=== PATIENT | male | born 1945 | race Caucasian/White ===

== ENCOUNTER → 2017-12-09 | Outpatient (CLI) | payer OTHER | LOC: M LAB 10:28 | DX: I51.7 Cardiomegaly (principal) | CPT/HCPCS: 71046 ==

== ENCOUNTER 2018-06-03 14:56 | Day surgery (SDC) | payer MEDICARE ==
[2018-06-03] MEDS ORDERED: LR 1,000 ML IV (15:00)
[2018-06-03 15:36] LABS: BEDSIDE GLUCOSE 123 MG/DL (83-110)
[2018-06-03] MEDS ORDERED: fentaNYL 100 MCG/2 ML INJECTION (J3010) As Ordered (16:55)
[2018-06-03] MEDS ORDERED: LIDOCAINE 2% INJ 100 MG/5 ML SDV (FOR ANES.) As Ordered (16:55)
[2018-06-03] MEDS ORDERED: MIDAZOLAM INJ 2 MG/2 ML VIAL (J2250) As Ordered (16:55)
[2018-06-03] MEDS ORDERED: PROPOFOL 500 MG/50 ML VIAL As Ordered (16:55)
[2018-06-03] MEDS: CETACAINE SPRAY 5GM As Ordered (17:34)
[2018-06-03] MEDS: LIDOCAINE VISCOUS 2% SOLN 15ML UDC As Ordered (17:34)
== END 2018-06-03 18:50 | disposition home or self-care (01) ==
LOC: M SDC 14:56
DX: I34.1 Nonrheumatic mitral (valve) prolapse (principal); I34.0 Nonrheumatic mitral (valve) insufficiency; I50.1 Left ventricular failure, unspecified; I36.1 Nonrheumatic tricuspid (valve) insufficiency; I51.7 Cardiomegaly; I11.0 Hypertensive heart disease with heart failure; I48.91 Unspecified atrial fibrillation; E11.40 Type 2 diabetes mellitus with diabetic neuropathy, unspecified; I25.10 Atherosclerotic heart disease of native coronary artery without angina pectoris; I25.2 Old myocardial infarction; E78.00 Pure hypercholesterolemia, unspecified; M12.9 Arthropathy, unspecified; J44.9 Chronic obstructive pulmonary disease, unspecified; G47.9 Sleep disorder, unspecified; Z91.041 Radiographic dye allergy status; Z79.899 Other long term (current) drug therapy; Z79.84 Long term (current) use of oral hypoglycemic drugs; Z87.820 Personal history of traumatic brain injury; Z85.828 Personal history of other malignant neoplasm of skin
CPT/HCPCS: 93320

== ENCOUNTER → 2018-07-08 | Outpatient (CLI) | payer MEDICARE | LOC: M CARPUL 14:52 | DX: R06.00 Dyspnea, unspecified (principal) | CPT/HCPCS: 94010 ==

== ENCOUNTER 2018-12-30 15:33 | Emergency (ER) | payer MEDICARE ==
[~2018-12-30 15:33] MED LIST: ARIC1TAB2 PO; ASPI81TA85 PO; ATOR1TAB21 PO; CARV3.12 PO; CARV6.25 PO; CLOP75TA2 PO; FLOM0.4C39 PO; IPRA0.00 INH; IRON28TA PO; LASI40TA9 PO; LISI-1046 PO; METF500T13 PO; PANT40TA3 PO; PROT1TAB2 PO; SENN1TAB40 PO; TRAZ-160 PO
[2018-12-30 16:10] VITALS: BP 142/55
== END 2018-12-30 16:47 | disposition home or self-care (01) ==
LOC: M ED 15:33
DX: Z04.6 Encounter for general psychiatric examination, requested by authority (principal); J44.9 Chronic obstructive pulmonary disease, unspecified; E11.9 Type 2 diabetes mellitus without complications; I50.9 Heart failure, unspecified; I48.91 Unspecified atrial fibrillation; I25.10 Atherosclerotic heart disease of native coronary artery without angina pectoris; I34.1 Nonrheumatic mitral (valve) prolapse; I36.1 Nonrheumatic tricuspid (valve) insufficiency; Z79.899 Other long term (current) drug therapy; Z79.84 Long term (current) use of oral hypoglycemic drugs; Z79.82 Long term (current) use of aspirin; Z91.041 Radiographic dye allergy status

== ENCOUNTER → 2019-01-20 | Outpatient (CLI) | payer MEDICARE ==
--- NOTE | 2019-01-20 16:45 | REP ---
Bilateral inguinal ultrasound: The patient complains of a palpable lump in the right inguinal area with pain for 1 month increasing in size. In the right inguinal area there is a fluid collection measuring 3.5 x 1.5 x 2.12 cm. This is nonspecific and could represent hematoma, abscess or cyst. This is located anterior to the common femoral vein. Inferior to this fluid collection. There is an enlarged right inguinal node measuring 3.7 x 0.8 x 1.8 cm. There is no mass, cyst, fluid collection or lymph node in the left groin. Electronically Signed by To Lawrence MD 01/20/2019 04:36 P
== END ==
LOC: M RAD 13:45
PROVIDERS: ATTEND Surgery
DX: R59.1 Generalized enlarged lymph nodes (principal); R22.2 Localized swelling, mass and lump, trunk

== ENCOUNTER 2019-03-03 08:51 | Day surgery (SDC) | payer MEDICARE ==
[~2019-03-03] VITALS: Ht 160 cm; Wt 88.0 kg
[~2019-03-03 08:51] MED LIST changes: +NS 1,000 ML IV ONE; -TRAZ-160 PO; +TRAZ-252 PO; +WARF4TAB51 PO
[2019-03-03] MEDS ORDERED: PROPOFOL 200 MG/20 ML VIAL As Ordered ONE (11:27)
[2019-03-03] MEDS ORDERED: LIDOCAINE 2% INJ 100 MG/5 ML SDV (FOR ANES.) As Ordered ONE (11:27)
--- NOTE | 2019-03-03 11:41 | ROOR ---
Patient Name: Tan Shaver Procedure Date: 03/03/2019 11:13 AM Date of : 1945 Age: 73 Room: [facility] Gender: Male Note Status: Finalized Procedure: Colonoscopy Indications: High risk colon cancer surveillance: Personal history of colonic polyps Providers: DO Demetrio Garcia MD: Bogdan Dominguez Requesting Provider: Medicines: Propofol per Anesthesia Complications: No immediate complications. Procedure: Pre-Anesthesia Assessment: - Prior to the procedure, a History and Physical was performed, and patient medications and allergies were reviewed. The patient is competent. The risks and benefits of the procedure and the sedation options and risks were discussed with the patient. All questions were answered and informed consent was obtained. Patient identification and proposed procedure were verified by the physician, the nurse, the anesthesiologist and the lead technician in the endoscopy suite. Mental Status Examination: alert and oriented. Airway Examination: normal oropharyngeal airway and neck mobility. Respiratory Examination: clear to auscultation. CV Examination: normal. Prophylactic Antibiotics: The patient does not require prophylactic antibiotics. Prior Anticoagulants: The patient has taken no previous anticoagulant or antiplatelet agents. ASA Grade Assessment: II - A patient with mild systemic disease. After reviewing the risks and benefits, the patient was deemed in satisfactory condition to undergo the procedure. The anesthesia plan was to use monitored anesthesia care (MAC). Immediately prior to administration of medications, the patient was re-assessed for adequacy to receive sedatives. The heart rate, respiratory rate, oxygen saturations, blood pressure, adequacy of pulmonary ventilation, and response to care were monitored throughout the procedure. The physical status of the patient was re-assessed after the procedure. The Colonoscope was introduced through the anus and advanced to the cecum, identified by appendiceal orifice and ileocecal valve. The colonoscopy was performed without difficulty. The patient tolerated the procedure well. Findings: Hemorrhoids were found on perianal exam. Internal hemorrhoids were found during retroflexion. The hemorrhoids were Grade III (internal hemorrhoids that prolapse but require manual reduction). Multiple small-mouthed diverticula were found in the sigmoid colon. A 7 mm polyp was found in the transverse colon. The polyp was hyperplastic. The polyp was removed with a hot snare. Resection and retrieval were complete. Estimated blood loss was minimal. The exam was otherwise without abnormality on direct and retroflexion views. Impression: - Hemorrhoids found on perianal exam. - Internal hemorrhoids. - Diverticulosis in the sigmoid colon. - One 7 mm polyp in the transverse colon, removed with a hot snare. Resected and retrieved. - The examination was otherwise normal on direct and retroflexion views. Recommendation: - Patient has a contact number available for emergencies. The signs and symptoms of potential delayed complications were discussed with the patient. Return to normal activities tomorrow. Written discharge instructions were provided to the patient. - Resume Coumadin (warfarin) at prior dose today. Refer to referring physician for further adjustment of therapy. To Braxton DO 03/03/2019 11:41:05 AM Electronically signed by To Braxton DO Number of Addenda: 0 Note Initiated On: 03/03/2019 11:13 AM Estimated Blood Loss: Estimated blood loss was minimal.
[2019-03-03 12:15] VITALS: BP 115/76
== END 2019-03-03 12:04 | disposition home or self-care (01) ==
LOC: M OPP 08:51
PROVIDERS: ATTEND Surgery
DX: D12.3 Benign neoplasm of transverse colon (principal); K64.2 Third degree hemorrhoids; K57.30 Diverticulosis of large intestine without perforation or abscess without bleeding; Z86.010 Personal history of colon polyps

== ENCOUNTER 2019-06-08 11:29 | Emergency (ER) | payer MEDICARE ==
[~2019-06-08 11:29] MED LIST changes: -NS 1,000 ML IV ONE
[2019-06-08] MEDS ORDERED: TAMS1CAP17 PO (11:49)
[2019-06-08] MEDS ORDERED: FURO40TA2 PO (11:49)
[2019-06-08] MEDS ORDERED: LISI-1046 PO (11:49)
[2019-06-08] MEDS ORDERED: METO1TAB87 (11:49)
[2019-06-08] MEDS ORDERED: METF-791 PO (11:49)
[2019-06-08] MEDS ORDERED: DONE10TA90 PO (11:49)
[2019-06-08] MEDS ORDERED: ATOR1TAB21 PO (11:49)
--- NOTE | 2019-06-08 12:50 | REP ---
Clinical: Trauma. Comparison: None . Findings: Age-related atrophy and microvascular ischemic changes are appreciated. The ventricles and sulci are symmetric. Garcia-white differentiation is maintained. There is no evidence for acute intracranial hemorrhage, mass/mass effect, pathology or infarction. No extra-axial fluid collection. Calvarium is intact. Paranasal sinuses and mastoid air cells are clear. Impression: Age related atrophy and microvascular ischemic changes. No acute intracranial hemorrhage, infarction, or mass/mass effect. Electronically Signed by Andriy Muñoz MD 06/08/2019 12:42 P
--- NOTE | 2019-06-08 13:39 | REP ---
CT CERVICAL SPINE: CT cervical spine performed in the axial plane. Sagittal and coronal reconstruction images are performed. There is no compression fracture. There is slight reversal of the normal cervical lordosis. There is no prevertebral soft tissue swelling. There is mild spurring of C2 and C3 with moderate spurring of the C4-C7. There is mild narrowing of C3-4. There is moderate narrowing with subchondral sclerosis at C4-5, C5-6, and C6-7. Benign subchondral air cyst is seen posteriorly in the C4 vertebral body. Disc bulging and spurring causes moderate spinal stenosis at C4-5, C5-6, and C6-7 with bilateral foraminal narrowing at these levels as well. IMPRESSION: Degenerative changes. No evidence of acute fracture or dislocation. Electronically Signed by To Garcia MD 06/08/2019 04:51 P
[2019-06-08] MEDS ORDERED: PERCOCET 5MG/325MG TAB PO ONE (14:00)
[2019-06-08 14:38] LABS: HEMOGLOBIN 13.6 g/dl (13.5-17.5); MEAN CORPUSCULAR HEMOGLOBIN 28.7 pg (27.0-33.0); MEAN CORPUSCULAR HGB CONC 32.4 g/dl (32.0-36.5); MEAN CORPUSCULAR VOLUME 88.6 fl (80.0-96.0); PLATELET COUNT, AUTOMATED 208 10^3/uL (150-450); RED BLOOD COUNT 4.74 10^6/uL (4.30-6.10); WHITE BLOOD COUNT 12.4 10^3/uL (4.0-10.0)
[2019-06-08 14:50] VITALS: BP 138/65
[2019-06-08] MEDS ORDERED: NORC1TAB7 PO (14:58)
[2019-06-08 14:59] LABS: BLOOD UREA NITROGEN 21 MG/DL (7-18); CALCIUM LEVEL 9.2 MG/DL (8.8-10.2); CARBON DIOXIDE LEVEL 30 MEQ/L (21-32); CHLORIDE LEVEL 105 MEQ/L (98-107); CK-MB VALUE MASS < 1.0 NG/ML (<3.6); CPK CREATINE PHOSPHOKINASE 226 U/L (39-308); CREATININE FOR GFR 1.04 MG/DL (0.70-1.30); GLOMERULAR FILTRATION RATE > 60.0 (>42); GLUCOSE, FASTING 126 MG/DL (70-100); MAGNESIUM LEVEL 2.2 MG/DL (1.8-2.4); MB/CK RELATIVE INDEX 0.44 (< OR =4); POTASSIUM SERUM 4.2 MEQ/L (3.5-5.1); SODIUM LEVEL 142 MEQ/L (136-145); TROPONIN I < 0.02 NG/ML (< 0.10)
[2019-06-08 15:40] LABS: INR 2.05; PROTHROMBIN TIME 22.9 SECONDS (11.8-14.0)
[2019-06-08 15:41] LABS: PARTIAL THROMBOPLASTIN TIME 32.1 SECONDS (25.0-38.4)
== END 2019-06-08 15:27 | disposition left against medical advice (07) ==
LOC: M ED 11:29 → EDBD 11:29 → M ED 15:27
DX: R55 Syncope and collapse (principal); M79.602 Pain in left arm; I48.91 Unspecified atrial fibrillation; I25.10 Atherosclerotic heart disease of native coronary artery without angina pectoris; J44.9 Chronic obstructive pulmonary disease, unspecified; Z86.73 Personal history of transient ischemic attack (TIA), and cerebral infarction without residual deficits; Z87.891 Personal history of nicotine dependence; Z53.21 Procedure and treatment not carried out due to patient leaving prior to being seen by health care provider; M25.78 Osteophyte, vertebrae; M48.02 Spinal stenosis, cervical region; Z79.82 Long term (current) use of aspirin; Z79.84 Long term (current) use of oral hypoglycemic drugs; Z79.01 Long term (current) use of anticoagulants; Z79.899 Other long term (current) drug therapy; Z91.041 Radiographic dye allergy status

== ENCOUNTER 2019-06-12 15:00 | Inpatient (IN) | payer MEDICARE ==
[~2019-06-12] VITALS: Ht 160 cm; Wt 80.0 kg
[~2019-06-12 15:00] MED LIST changes: +DONE10TA90 PO; +FURO40TA2 PO; +METF-791 PO; +METO1TAB87; +NORC1TAB7 PO; +TAMS1CAP17 PO
[2019-06-12] MEDS ORDERED: ASPI81CH33 PO (15:20)
[2019-06-12 15:43] LABS: HEMATOCRIT 43.9 % (42.0-52.0); HEMOGLOBIN 14.1 g/dl (13.5-17.5); MEAN CORPUSCULAR HEMOGLOBIN 28.5 pg (27.0-33.0); MEAN CORPUSCULAR HGB CONC 32.1 g/dl (32.0-36.5); MEAN CORPUSCULAR VOLUME 88.7 fl (80.0-96.0); PLATELET COUNT, AUTOMATED 213 10^3/uL (150-450); RED BLOOD COUNT 4.95 10^6/uL (4.30-6.10); WHITE BLOOD COUNT 8.5 10^3/uL (4.0-10.0)
[2019-06-12 15:59] LABS: INR 3.68; PARTIAL THROMBOPLASTIN TIME 38.3 SECONDS (25.0-38.4); PROTHROMBIN TIME 36.6 SECONDS (11.8-14.0)
--- NOTE | 2019-06-12 16:08 | REP ---
Clinical: Left-sided deficits. Comparison: 06/08/2019 . Findings: Age-related atrophy and microvascular ischemic changes are appreciated. The ventricles and sulci are symmetric. Garcia-white differentiation is maintained. There is no evidence for acute intracranial hemorrhage, mass/mass effect, pathology or infarction. No extra-axial fluid collection. Calvarium is intact. Paranasal sinuses and mastoid air cells are clear. Impression: Age related atrophy and microvascular ischemic changes. No acute intracranial hemorrhage, infarction, or mass/mass effect. Electronically Signed by Andriy Muñoz MD 06/12/2019 04:00 P
[2019-06-12 16:13] LABS: ALBUMIN 3.3 GM/DL (3.2-5.2); ALT/SGPT 16 U/L (12-78); BILIRUBIN,TOTAL 0.8 MG/DL (0.2-1.0); BLOOD UREA NITROGEN 16 MG/DL (7-18); CARBON DIOXIDE LEVEL 28 MEQ/L (21-32); CHLORIDE LEVEL 107 MEQ/L (98-107); CREATININE FOR GFR 0.88 MG/DL (0.70-1.30); GLOMERULAR FILTRATION RATE > 60.0 (>42); GLUCOSE, FASTING 128 MG/DL (70-100); POTASSIUM SERUM 4.2 MEQ/L (3.5-5.1); SODIUM LEVEL 141 MEQ/L (136-145)
[2019-06-12 16:30] LABS: CK-MB VALUE MASS < 1.0 NG/ML (<3.6); CPK CREATINE PHOSPHOKINASE 63 U/L (39-308); MB/CK RELATIVE INDEX 1.59 (< OR =4); TROPONIN I < 0.02 NG/ML (< 0.10)
[2019-06-12] MEDS ORDERED: PATIENT COMMENT (18:20)
[2019-06-12] MEDS ORDERED: CHOL100029 PO (18:20)
[2019-06-12] MEDS ORDERED: OMEG10002 PO (18:20)
[2019-06-12] MEDS ORDERED: ECOT81TA5 PO (18:20)
--- NOTE | 2019-06-12 19:38 | ECGEPIP ---
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
[2019-06-12] MEDS ORDERED: DEXTROSE 50% 50 ML SYRINGE IV PRN (20:45)
[2019-06-12] MEDS ORDERED: ACETAMINOPHEN TAB 650MG DOSE (2X325MG) PO PRN (20:45)
[2019-06-12] MEDS ORDERED: MOM 30ML SUSPENSION UDC PO PRN (20:45)
[2019-06-12] MEDS ORDERED: MAALOX 30 ML SUSP *UDC PO PRN (20:45)
[2019-06-12] MEDS ORDERED: GLUCAGON FOR INJ 1 MG VIAL (J1610) SC PRN (20:45)
[2019-06-12] MEDS ORDERED: GLUCOSE 4 GM CHEW TABLET PO PRN (20:45)
[2019-06-12] MEDS: CARVedilol 3.125 MG TAB PO SCH (22:58)
[2019-06-12 23:30] VITALS: BP 130/78
--- NOTE | 2019-06-13 02:25 | HPEPDOC ---
General Date of Admission Jun 12, 2019 at 20:39 Date of Service: Jun 12, 2019 Chief Complaint The patient is a 73-year-old male admitted with a reason for visit of Left Arm Weakness. History of Present Illness 73m with hx of afib on coumadin, chf, cva, copd, cad, pud, ild, dm, who presented 06/08 for syncope and then left AMA. Pt reports last friday he fell after getting very dizzy. He left AMA to care for his dog. He reports pain and weakness in his left arm and hand. Since leaving ama on friday he has also been unable to stand or walk. He has been scooting around the floor for the past 4 days. He has trouble explaining why he cannot stand. He reports this feels different than when he had a stroke. a full ROS was performed and negative except as above Home Medications Scheduled Aspirin (Ecotrin) 81 Mg Tablet.dr, 81 MG PO DAILY, (Reported) Atorvastatin Calcium (Atorvastatin Calcium) 20 Mg Tablet, 20 MG PO DAILY, (Reported) Carvedilol (Carvedilol) 6.25 Mg Tab, 3.125 MG PO BID, (Reported) Donepezil HCl (Donepezil HCl) 10 Mg Tablet, 10 MG PO DAILY, (Reported) Furosemide (Furosemide) 40 Mg Tablet, 40 MG PO DAILY, (Reported) Lisinopril (Lisinopril) 2.5 Mg Tablet, 2.5 MG PO DAILY, (Reported) Metformin HCl (Metformin HCl ER) 500 Mg Tab.er.24h, 500 MG PO BID, (Reported) [place]-3/Dha/Epa/Fish Oil (Fish Oil 1,000 mg Softgel) 1 Each Capsule, 1 CAP PO DAILY, (Reported) Tamsulosin Hcl (Tamsulosin HCl) 0.4 Mg Capsule, 0.4 MG PO DAILY, (Reported) Vitamin D (Vitamin D3) 1,000 Unit Tablet, 1,000 UNITS PO DAILY, (Reported) Warfarin Sodium (Warfarin Sodium) 2 Mg Tablet, 2 MG PO QPM, (Reported) Miscellaneous Medications [Patient Comment] , (Reported) PATIENT TOOK MEDS THIS MORNING BUT IS UNABLE TO VERIFY WHICH ONES. Allergies Coded Allergies: Contrast Media (Verified Allergy, Severe, 06/12/19) Family History Significant Family History: Noncontributory Social History * Smoker: former Smoker Alcohol: Denies Drugs: denies A-FIB/CHADSVASC A-FIB History Current/History of A-Fib/PAF?: Yes Current PO Anticoag Therapy: Yes Physical Examination General Exam: Positive: Alert, Cooperative, No Acute Distress Eye Exam: Positive: PERRLA, Conjunctiva & lids normal, EOMI; Negative: Sclera icteric ENT Exam: Positive: Atraumatic, Mucous membr. moist/pink, Pharynx Normal Neck Exam: Positive: Supple; Negative: JVD, thyromegaly Chest Exam: Positive: Clear to auscultation, Normal air movement Heart Exam: Positive: Rate Normal, Normal S1, Normal S2; Negative: Murmurs, Rubs Abdomen Exam: Positive: Normal bowel sounds, Soft; Negative: Tenderness, Hepatospenomegaly Extremity Exam: Positive: Normal pulses; Negative: Clubbing, Cyanosis, Edema Skin Exam: Positive: Nl turgor and temperature; Negative: Breakdown, Lesion Neuro Exam: Positive: Normal Speech, Other (no weakness in lower extremities noted, dependency counselor strength weak bilaterally, left hand weakness worse on ulnar side, cerebellar testing wnl) Vital Signs Vital Signs Date Time Temp Pulse Resp B/P (MAP) Pulse Ox O2 Delivery O2 Flow Rate FiO2 06/12/19 23:30 98.9 87 16 130/78 (95) 98 06/12/19 22:55 Room Air Laboratory Data Labs 24H Laboratory Tests 2 06/12/19 15:36: Nucleated Red Blood Cells % (auto) 0.0, Prothrombin Time 36.6H, Prothromb Time International Ratio 3.68, Activated Partial Thromboplast Time 38.3, Anion Gap 6L, Glomerular Filtration Rate > 60.0, Blood Urea Nitrogen 16, Creatinine 0.88, Sodium Level 141, Potassium Level 4.2, Chloride Level 107, Carbon Dioxide Level 28, Calcium Level 9.0, Aspartate Amino Transf (AST/SGOT) 16, Alanine Aminotransferase (ALT/SGPT) 16, Total Creatine Kinase 63, Alkaline Phosphatase 79, Total Bilirubin 0.8, Total Protein 7.0, Albumin 3.3, Creatine Kinase MB < 1.0, Creatine Kinase MB Relative Index 1.59, Troponin I < 0.02, Albumin/Globulin Ratio 0.89L 06/12/19 22:18: Bedside Glucose (Misc Panel) 117H 06/12/19 23:24: Bedside Glucose (Misc Panel) 117H CBC/BMP Laboratory Tests 06/12/19 15:36 Red Blood Count 4.95, Mean Corpuscular Volume 88.7, Mean Corpuscular Hemoglobin 28.5, Mean Corpuscular Hemoglobin Concent 32.1, Red Cell Distribution Width 14.9 H, Calcium Level 9.0, Aspartate Amino Transf (AST/SGOT) 16, Alanine Aminotransfe rase (ALT/SGPT) 16, Total Creatine Kinase 63, Alkaline Phosphatase 79, Total Bilirubin 0.8, Total Protein 7.0, Albumin 3.3 Assessment/Plan 73m p/w inability to walk, left hand weakness ct with no evidence of infarct or bleed clinically the hand weakness appears to either be radicular or peripheral nerve no clear explanation for the difficulty standing mri brain and c-spine ordered by ED but delayed due to penile implant neuro consult in am PT/OT afib on coumadin inr high repeat tomorrow rate controlled cad/chf continue coreg, lisinopril, asa, lipitor dm diabetic diet fingersticks sliding scale Plan / VTE VTE Prophylaxis Ordered?: Yes JESUS GRACIA MD Jun 13, 2019 02:25
[2019-06-13 06:00] VITALS: BP 128/82
[2019-06-13] MEDS: HumaLOG INSULIN (NovoLOG) PER UNIT SC SCH ×3 (08:50→17:44)
[2019-06-13] MEDS: FUROSEMIDE 40 MG TAB PO SCH (08:51)
[2019-06-13] MEDS: CARVedilol 3.125 MG TAB PO SCH ×2 (08:51→20:40)
[2019-06-13] MEDS: TAMSULOSIN 0.4 MG CAP PO SCH (08:51)
[2019-06-13] MEDS: DONEPEZIL 5 MG TAB PO SCH (08:51)
[2019-06-13] MEDS: OMEGA-3 1000MG CAPSULE PO SCH (08:51)
[2019-06-13] MEDS: VITAMIN D 1,000 INTERNATIONAL UNITS TABLET PO SCH (08:52)
[2019-06-13] MEDS: LISINOPRIL *2.5 MG* TAB PO SCH (08:52)
[2019-06-13] MEDS: ASPIRIN 81 MG ENTERIC TAB PO SCH (08:52)
[2019-06-13] MEDS: ATORVASTATIN 20 MG TAB PO SCH (08:52)
[2019-06-13 08:53] LABS: BASO # 0.1 10^3/uL (0.0-0.2); BASO % 0.7 % (0.0-1.0); EOS # 0.2 10^3/uL (0.0-0.5); EOS % 1.7 % (0.0-3.0); HEMATOCRIT 42.7 % (42.0-52.0); HEMOGLOBIN 13.7 g/dl (13.5-17.5); LYMPH # 1.6 10^3/uL (1.5-5.0); LYMPH % 18.1 % (24.0-44.0); MEAN CORPUSCULAR HEMOGLOBIN 28.2 pg (27.0-33.0); MEAN CORPUSCULAR HGB CONC 32.1 g/dl (32.0-36.5); MONO # 0.6 10^3/uL (0.0-0.8); MONO % 6.9 % (0.0-5.0); NEUTROPHILS # 6.5 10^3/uL (1.5-8.5); NEUTROPHILS % 72.3 % (36.0-66.0); PLATELET COUNT, AUTOMATED 210 10^3/uL (150-450); RED BLOOD COUNT 4.85 10^6/uL (4.30-6.10)
[2019-06-13] MEDS ORDERED: ENOXAPARIN 40 MG/0.4 ML SYRINGE (J1650) SC SCH (09:00)
[2019-06-13 09:04] LABS: INR 3.56; PARTIAL THROMBOPLASTIN TIME 43.6 SECONDS (25.0-38.4); PROTHROMBIN TIME 35.6 SECONDS (11.8-14.0)
[2019-06-13 09:11] LABS: BLOOD UREA NITROGEN 16 MG/DL (7-18); CALCIUM LEVEL 8.7 MG/DL (8.8-10.2); CARBON DIOXIDE LEVEL 25 MEQ/L (21-32); CHLORIDE LEVEL 107 MEQ/L (98-107); CREATININE FOR GFR 0.84 MG/DL (0.70-1.30); GLOMERULAR FILTRATION RATE > 60.0 (>42); GLUCOSE, FASTING 137 MG/DL (70-100); POTASSIUM SERUM 4.2 MEQ/L (3.5-5.1); SODIUM LEVEL 140 MEQ/L (136-145)
[2019-06-13 13:48] VITALS: BP 92/50
[2019-06-13 13:55] VITALS: BP 112/62
--- NOTE | 2019-06-13 16:33 | IPNPDOC ---
Text Note Date of Service The patient was seen on 06/13/19. NOTE SUBJECTIVE: Mr. Shaver 73-year-old male admitted with weakness and probable left hemiparesis. He is unable to use his left hand or left upper extremity and reports being unable to stand or ambulate. The patient is left-hand dominant. Objective: HENT: Neck is otherwise supple with no adenopathy or thyromegaly, oral mucosa is moist, good dentition Cardiovascular: Regular rate and rhythm with a normal S1 and S2 and I do not appreciate a bruit. Respiratory: Clear to auscultation, no wheezing or cough. Abdomen: Soft, mild central obesity, otherwise benign to exam. Extremities: Patient has notable edema to his left upper extremity. Neuro: Patient has remarkable weakness to his left upper extremity, he cannot make use of his hand, he cannot bear weight or ambulate without significant assistance. Cranial nerves II through XII are otherwise intact to function, and he does not demonstrate right-sided deficits. ASSESSMENT/PLAN: 1. Concern for CVA. Patient persists with left-sided weakness. He is also unable to ambulate. CT scan is negative for infarct or bleed. He is unable to have further evaluation by MRI due to presence of penile implant. Patient is unable to have evaluation by CT angiogram due to contrast media allergy. We will contact neurology marlon conner. He otherwise remains on aspirin and statin in the form of Lipitor. 2. Atrial fibrillation. Patient is on anticoagulation with Coumadin. However, he is supratherapeutic with an INR of 3.56 and is being held. He is also receiving Lovenox. Ubb-duulaeu-knqqngpsz diabetes mellitus. Patient remains on a consistent carbohydrate diet and we are using hospital sliding scale for glycemic control. 4. Congestive heart failure. Patient continues on a regimen inclusive of Coreg, lisinopril, aspirin and Lipitor. He does not appear to be in acute fluid overload. VS,Fishbone, I+O VS, Fishbone, I+O Laboratory Tests 06/13/19 08:24 Red Blood Count 4.85, Mean Corpuscular Volume 88.0, Mean Corpuscular Hemoglobin 28.2, Mean Corpuscular Hemoglobin Concent 32.1, Red Cell Distribution Width 14.9 H, Neutrophils (%) (Auto) 72.3 H, Lymphocytes (%) (Auto) 18.1 L, Monocytes (%) (Auto) 6.9 H, Eosinophils (%) (Auto) 1.7, Basophils (%) (Auto) 0.7, Neutrophils # (Auto) 6.5, Lymphocytes # (Auto) 1.6, Monocytes # (Auto) 0.6, Eosinophils # (Auto) 0.2, Basophils # (Auto) 0.1, Calcium Level 8.7 L Vital Signs Date Time Temp Pulse Resp B/P (MAP) Pulse Ox O2 Delivery O2 Flow Rate FiO2 06/13/19 14:00 99.1 87 16 96 06/13/19 13:55 112/62 (79) 06/12/19 22:55 Room Air I&O- Last 24 Hours up to 6 AM 06/13/19 06:00 Intake Total 240 ml Output Total 325 ml Balance -85 ml POLI REYES MD Jun 13, 2019 16:33
[2019-06-14 06:00] VITALS: BP 122/76
[2019-06-14 06:11] LABS: INR 3.46; PROTHROMBIN TIME 34.8 SECONDS (11.8-14.0)
[2019-06-14] MEDS: TAMSULOSIN 0.4 MG CAP PO SCH (08:05)
[2019-06-14] MEDS: HumaLOG INSULIN (NovoLOG) PER UNIT SC SCH ×3 (08:05→17:02)
[2019-06-14] MEDS: OMEGA-3 1000MG CAPSULE PO SCH (08:05)
[2019-06-14] MEDS: VITAMIN D 1,000 INTERNATIONAL UNITS TABLET PO SCH (08:06)
[2019-06-14] MEDS: ATORVASTATIN 20 MG TAB PO SCH (08:06)
[2019-06-14] MEDS: ASPIRIN 81 MG ENTERIC TAB PO SCH (08:06)
[2019-06-14] MEDS: LISINOPRIL *2.5 MG* TAB PO SCH (08:06)
[2019-06-14] MEDS: FUROSEMIDE 40 MG TAB PO SCH (08:06)
[2019-06-14] MEDS: CARVedilol 3.125 MG TAB PO SCH ×2 (08:06→21:05)
[2019-06-14] MEDS: DONEPEZIL 5 MG TAB PO SCH (08:07)
[2019-06-14 14:00] VITALS: BP 116/63
[2019-06-14] MEDS ORDERED: ATOR1TAB21 PO (16:34)
--- NOTE | 2019-06-14 16:45 | IPNPDOC ---
Text Note Date of Service The patient was seen on 06/14/19. NOTE SUBJECTIVE: Mr. Shaver says he's had some significant clinical improvement. He demonstrates moving his left arm and can pull himself to a standing position. Concern had been raised for acute stroke. Head CT did not show signs of infarction or bleed. Patient was unable to have further imaging study by MRI or CT angiogram. OBJECTIVE: HENT: Neck is supple, no adenopathy, patient had full control of oral secretions, no thyromegaly Cardiovascular: Regular rate and rhythm with no murmur or bruit. Respiratory: Clear to auscultation with no rhonchi, rales, wheezes or cough. Abdomen: Soft, nontender, nondistended. Extremities: Patient still has remarkable edema to his left hand, no edema to his feet. Neuro: Cranial nerves II through XII are intact to function. He has improving mobility and strength to his left arm and is now able to bear weight. He is not fully independently ambulatory. ASSESSMENT/PLAN: 1. Concern for CVA. Patient's left-sided weakness has improved significantly. He is now able to bear weight, but still not fully ambulatory. CT scan is negative for infarct or bleed. He is unable to have further evaluation by MRI due to presence of penile implant. Patient is unable to have evaluation by CT angiogram due to contrast media allergy. He otherwise remains on aspirin and statin in the form of Lipitor. Per evaluation by PT and OT services patient may be a good candidate for acute rehabilitation. 2. Atrial fibrillation. Patient is on anticoagulation with Coumadin. However, he is supratherapeutic with an INR of 3.56 and it is being held. He is also receiving Lovenox. Nwj-nyqdzrd-qtzuxsaps diabetes mellitus. Patient remains on a consistent carbohydrate diet and we are using hospital sliding scale for glycemic control. 4. Congestive heart failure. Patient continues on a regimen inclusive of Coreg, lisinopril, aspirin and Lipitor. He does not appear to be in acute fluid overload. VS,Fishbone, I+O VS, Fishbone, I+O Vital Signs Date Time Temp Pulse Resp B/P (MAP) Pulse Ox O2 Delivery O2 Flow Rate FiO2 06/14/19 14:00 98.9 94 18 116/63 (80) 95 06/12/19 22:55 Room Air I&O- Last 24 Hours up to 6 AM 06/14/19 06:00 Intake Total 1560 ml Output Total 1140 ml Balance 420 ml POLI REYES MD Jun 14, 2019 16:45
[2019-06-14] MEDS: metFORMIN XR 500MG TAB *GLUCOPHAGE XR PO SCH (21:05)
[2019-06-14 22:00] VITALS: BP 113/74
[2019-06-15 06:00] VITALS: BP 115/70
[2019-06-15] MEDS: ASPIRIN 81 MG ENTERIC TAB PO SCH (08:08)
[2019-06-15] MEDS: FUROSEMIDE 40 MG TAB PO SCH (08:08)
[2019-06-15] MEDS: VITAMIN D 1,000 INTERNATIONAL UNITS TABLET PO SCH (08:08)
[2019-06-15 08:09] VITALS: BP 117/84
[2019-06-15] MEDS: CARVedilol 3.125 MG TAB PO SCH (08:09)
[2019-06-15] MEDS: OMEGA-3 1000MG CAPSULE PO SCH (08:09)
[2019-06-15] MEDS: ATORVASTATIN 20 MG TAB PO SCH (08:09)
[2019-06-15] MEDS: LISINOPRIL *2.5 MG* TAB PO SCH (08:09)
[2019-06-15] MEDS: metFORMIN XR 500MG TAB *GLUCOPHAGE XR PO SCH (08:09)
[2019-06-15] MEDS: TAMSULOSIN 0.4 MG CAP PO SCH (08:09)
[2019-06-15] MEDS: DONEPEZIL 5 MG TAB PO SCH (08:09)
[2019-06-15] MEDS: HumaLOG INSULIN (NovoLOG) PER UNIT SC SCH (08:10)
[2019-06-15 09:54] LABS: INR 2.23; PROTHROMBIN TIME 24.5 SECONDS (11.8-14.0)
--- NOTE | 2019-07-07 12:00 | DS.PDOC ---
Discharge Summary General Date of Admission Jun 12, 2019 at 20:39 Date of Discharge June 15, 2019 Discharge Summary PROCEDURES PERFORMED DURING STAY: [None]. ADMITTING DIAGNOSES: 1. [Suspected CVA]. DISCHARGE DIAGNOSES: 1. [Acute CVA, chronic atrial fibrillation, chronic systolic congestive heart failure, CAD, NIDDM, COPD, interstitial lung disease]. COMPLICATIONS/CHIEF COMPLAINT: Left Arm Weakness. HISTORY OF PRESENT ILLNESS/HOSPITAL COURSE: [73 year old male with history of chronic afib developed Left hemiparesis at home. Returned to ER after leaving hospital AMA. Was found to be mildly supratherapeutic on his Coumadin. Head CT did not show infarct or bleed. Patient was unable to undergo MRI due to presence of penile implant. He was unable to have evaluation by angiogram because of allergy to contrast media.Patient was otherwise felt to have had CVA. After evaluation by PT/OT services it was felt that patient would benefit from acute rehab.]. DISCHARGE MEDICATIONS: Please see below. ALLERGIES: Please see below. PHYSICAL EXAMINATION ON DISCHARGE: HENT: Neck is supple, no adenopathy, patient had full control of oral secretions, no thyromegaly Cardiovascular: Regular rate and rhythm with no murmur or bruit. Respiratory: Clear to auscultation with no rhonchi, rales, wheezes or cough. Abdomen: Soft, nontender, nondistended. Extremities: Patient still has remarkable edema to his left hand, no edema to his feet. Neuro: Cranial nerves II through XII are intact to function. He has improving mobility and strength to his left arm and is now able to bear weight. He is not fully independently ambulatory. LABORATORY DATA: Please see below. IMAGING: Head CT [Age related atrophy and microvascular ischemic changes. No acute intracranial hemorrhage, infarction, or mass/mass effect. Electronically Signed by Andriy Muñoz MD 06/12/2019 04:00 P] PROGNOSIS: ACTIVITY: [As tolerated, with assistance and supervision]. DIET: [Consistent Carbohydrate] DISCHARGE PLAN: [Patient is to be discharged to the acute rehab unit for PT and OT. He is motivated to recover. His other medical conditions otherwise remained stable. He remains on chronic anticiagulation with Coumadin. He is already on a statin and aspirin. He will follow up with his PCP upon discharge from ARU.] DISPOSITION: 62 D/T Rehab Facility. DISCHARGE CONDITION: [Stable]. TIME SPENT ON DISCHARGE: Greater than [40] minutes. Discharge Medications Scheduled Aspirin (Ecotrin) 81 Mg Tablet.dr, 81 MG PO DAILY Atorvastatin Calcium (Atorvastatin Calcium) 20 Mg Tablet, 40 MG PO DAILY Carvedilol (Carvedilol) 6.25 Mg Tab, 3.125 MG PO BID Donepezil HCl (Donepezil HCl) 10 Mg Tablet, 10 MG PO DAILY Fluoxetine Hcl (Fluoxetine HCl) 20 Mg Capsule, 20 MG PO QHS Furosemide (Furosemide) 40 Mg Tablet, 40 MG PO DAILY Lisinopril (Lisinopril) 2.5 Mg Tablet, 2.5 MG PO DAILY Metformin HCl (Metformin HCl ER) 500 Mg Tab.er.24h, 500 MG PO BID [place]-3/Dha/Epa/Fish Oil (Fish Oil 1,000 mg Softgel) 1 Each Capsule, 1 CAP PO DAILY, (Reported) Tamsulosin Hcl (Tamsulosin HCl) 0.4 Mg Capsule, 0.4 MG PO DAILY Vitamin D (Vitamin D3) 1,000 Unit Tablet, 1,000 UNITS PO DAILY, (Reported) Warfarin Sodium (Warfarin Sodium) 2 Mg Tablet, 2 MG PO q48h at 5pm Take 2 mg every other day and have your INR level checked at your next doctor's visit Allergies Coded Allergies: Contrast Media (Verified Allergy, Severe, 06/12/19) POLI REYES MD Jul 07, 2019 12:00
== END 2019-06-15 10:58 | DRG 65 ==
LOC: M ED 15:00 → M ED INP 20:39 → M MSPAV 23:07
PROVIDERS: ADMIT Hospitalist; ATTEND Internal Medicine
DX: I63.9 Cerebral infarction, unspecified (principal); I50.22 Chronic systolic (congestive) heart failure; I48.2 Chronic atrial fibrillation; Z79.01 Long term (current) use of anticoagulants; J44.9 Chronic obstructive pulmonary disease, unspecified; E11.9 Type 2 diabetes mellitus without complications; Z79.82 Long term (current) use of aspirin; Z79.899 Other long term (current) drug therapy; Z91.041 Radiographic dye allergy status; Z87.891 Personal history of nicotine dependence; I25.10 Atherosclerotic heart disease of native coronary artery without angina pectoris

== ENCOUNTER 2019-06-15 10:25 | Inpatient (IN) | payer MEDICARE ==
[~2019-06-15] VITALS: Ht 160 cm; Wt 97.1 kg
[2019-06-15] MEDS: DOCUSATE SODIUM 100 MG CAP PO SCH ×2 (09:00→21:00)
[~2019-06-15 10:25] MED LIST changes: +ASPI81CH33 PO; +CHOL100029 PO; +ECOT81TA5 PO; +OMEG10002 PO; +PATIENT COMMENT
[2019-06-15 11:05] VITALS: BP 138/64
[2019-06-15] MEDS ORDERED: DEXTROSE 50% 50 ML SYRINGE IV PRN (11:30)
[2019-06-15] MEDS ORDERED: GLUCAGON FOR INJ 1 MG VIAL (J1610) SC PRN (11:30)
[2019-06-15] MEDS ORDERED: GLUCOSE 4 GM CHEW TABLET PO PRN (11:30)
[2019-06-15] MEDS ORDERED: BISACODYL 10 MG SUPP PR PRN (11:30)
[2019-06-15] MEDS: PANTOPRAZOLE 40MG TAB (PROTONIX) PO SCH (12:45)
[2019-06-15] MEDS: HumaLOG INSULIN (NovoLOG) PER UNIT SC SCH ×3 (12:46→20:57)
[2019-06-15 14:00] VITALS: BP 118/73
--- NOTE | 2019-06-15 16:20 | CR.PDOC ---
General Date of Consultation: Jun 15, 2019 Primary Care Physician Xu Groves Consultation REASON FOR CONSULTATION/CHIEF COMPLAINT: Medical management of CVA. HISTORY OF PRESENT ILLNESS: This is a 73-year-old male who developed acute onset of pain and weakness to his left arm and hand. He also had swelling. His onset of symptoms was accompanied by dizziness. The patient had presented to the hospital, but then left AMA. He had worsening status at home and was unable to ambulate. He was actually on the floor for about 4 days. He did return to the hospital. CT scan did not reveal a focal site of infarction. Patient was unable to have an MRI due to presence of penile implant. The patient did have notable weakness and immobility is upon initial evaluation in the emergency room and on the medical floor. He did develop some improvement such that we felt he would benefit from acute rehabilitation.. ALLERGIES: Please see below. HOME MEDICATIONS: Please see below. PAST MEDICAL HISTORY: Past medical history includes chronic atrial fibrillation for which she is on chronic anticoagulation, COPD, non-oxygen dependent, coronary artery disease, iis-bniclzq-kogrnpwue diabetes mellitus, interstitial lung disease, peptic ulcer disease, congestive heart failure, new CVA. PAST SURGICAL HISTORY: The patient has had no surgeries; he has had procedures such as colonoscopy in the past. FAMILY HISTORY: Patient denies any family history of chronic medical problems SOCIAL HISTORY: Employment: Retired Tobacco use:Former ETOH: None Illicit drug use: None IV drug use: No history Other relevant social factors: Lives alone, is very fond of animals REVIEW OF SYSTEMS: 10 system review is negative except as stated in the brief presentation PHYSICAL EXAMINATION: VITAL SIGNS: Please see below. Constitutional: Patient is looking forward to working with therapists on the acute rehabilitation unit. HENT: Neck is supple, no adenopathy, patient had full control of oral secretions, no thyromegaly Cardiovascular: Regular rate and rhythm with no murmur or bruit. Respiratory: Clear to auscultation with no rhonchi, rales, wheezes or cough. Abdomen: Soft, nontender, nondistended. Extremities: Patient still has remarkable edema to his left hand, no edema to his feet. Neuro: Cranial nerves II through XII are intact to function. He has improving mobility and strength to his left arm and is now able to bear weight. He is not fully independently ambulatory. Psych: The patient is a very pleasant and cooperative. He is having some grief at just losing a pet. LABORATORY DATA: Please see below. ASSESSMENT/PLAN: 1. Apparent acute CVA. Patient had acute onset of left-sided weakness and inability to stand. CT scan was negative for infarct or bleed. Patient was unable to have MRI or CT angioma due to contrast media allergies and presence of penile implant. Appropriate medical therapy includes aspirin and statin. Acute rehabilitation placement is appropriate. 2. Chronic atrial fibrillation. Patient is on anticoagulation with Coumadin. He had been supratherapeutic. We have been holding his Coumadin. He can likely be resumed at a lower dose. He will need to continue to have his INR monitored. His overall rate has been controlled. 3. Khv-ykhohpt-fwrsauscu diabetes mellitus. Patient is on a management regimen inclusive of hospital sliding scale insulin. He is on appropriate diet in the form of consistent carbohydrate. 4. Chronic systolic congestive heart failure. The patient does have an ejection fraction of 40%. There is also moderate pulmonary hypertension with a right ventricular systolic pressure of 44 mmHg. He is on appropriate medical management inclusive of beta todd in the form of Coreg, DANILO inhibitor in the form of lisinopril and Lasix. Vital Signs/I&O Vital Signs Date Time Temp Pulse Resp B/P (MAP) Pulse Ox O2 Delivery O2 Flow Rate FiO2 06/15/19 14:00 98.3 77 18 118/73 (88) 97 Allergies Coded Allergies: Contrast Media (Verified Allergy, Severe, 06/12/19) Home Medications Scheduled Aspirin (Ecotrin) 81 Mg Tablet.dr, 81 MG PO DAILY, (Reported) Atorvastatin Calcium (Atorvastatin Calcium) 20 Mg Tablet, 40 MG PO DAILY for 30 Days, #60 Carvedilol (Carvedilol) 6.25 Mg Tab, 3.125 MG PO BID, (Reported) Donepezil HCl (Donepezil HCl) 10 Mg Tablet, 10 MG PO DAILY, (Reported) Furosemide (Furosemide) 40 Mg Tablet, 40 MG PO DAILY, (Reported) Lisinopril (Lisinopril) 2.5 Mg Tablet, 2.5 MG PO DAILY, (Reported) Metformin HCl (Metformin HCl ER) 500 Mg Tab.er.24h, 500 MG PO BID, (Reported) [place]-3/Dha/Epa/Fish Oil (Fish Oil 1,000 mg Softgel) 1 Each Capsule, 1 CAP PO DAILY, (Reported) Tamsulosin Hcl (Tamsulosin HCl) 0.4 Mg Capsule, 0.4 MG PO DAILY, (Reported) Vitamin D (Vitamin D3) 1,000 Unit Tablet, 1,000 UNITS PO DAILY, (Reported) Warfarin Sodium (Warfarin Sodium) 2 Mg Tablet, 2 MG PO QPM, (Reported) Miscellaneous Medications [Patient Comment] , (Reported) PATIENT TOOK MEDS THIS MORNING BUT IS UNABLE TO VERIFY WHICH ONES. POLI REYES MD Jun 15, 2019 16:20
[2019-06-15] MEDS ORDERED: WARFARIN SOD 2 MG TAB PO ONE (17:00)
[2019-06-15] MEDS: metFORMIN (GLUCOPHAGE) 500 MG TAB PO SCH (17:12)
[2019-06-15] MEDS: IPRATROPIUM 0.5MG/ALBUTEROL 2.5MG INH SOL UD 3ML (DUONEB)(J7620) NEB SCH (19:44)
[2019-06-15 20:24] VITALS: BP 111/68
[2019-06-15 21:00] VITALS: BP 111/68
[2019-06-15] MEDS: FLUoxetine 20 MG CAP PO SCH (21:01)
[2019-06-15] MEDS: SENNA 8.6 MG TAB (SENOKOT) PO SCH (21:01)
[2019-06-15] MEDS: CARVedilol 3.125 MG TAB PO SCH (21:02)
[2019-06-15] MEDS: ACETAMINOPHEN TAB 650MG DOSE (2X325MG) PO PRN (21:02)
[2019-06-16 06:00] VITALS: BP 102/60
[2019-06-16 07:00] LABS: BASO # 0.1 10^3/uL (0.0-0.2); BASO % 0.6 % (0.0-1.0); EOS # 0.2 10^3/uL (0.0-0.5); EOS % 2.2 % (0.0-3.0); HEMATOCRIT 37.4 % (42.0-52.0); HEMOGLOBIN 12.4 g/dl (13.5-17.5); LYMPH # 1.9 10^3/uL (1.5-5.0); LYMPH % 22.6 % (24.0-44.0); MEAN CORPUSCULAR HGB CONC 33.2 g/dl (32.0-36.5); MEAN CORPUSCULAR VOLUME 87.6 fl (80.0-96.0); MONO # 0.7 10^3/uL (0.0-0.8); MONO % 7.8 % (0.0-5.0); NEUTROPHILS # 5.5 10^3/uL (1.5-8.5); NEUTROPHILS % 66.4 % (36.0-66.0); PLATELET COUNT, AUTOMATED 185 10^3/uL (150-450); RED BLOOD COUNT 4.27 10^6/uL (4.30-6.10); WHITE BLOOD COUNT 8.3 10^3/uL (4.0-10.0)
[2019-06-16 07:31] LABS: ALBUMIN 2.6 GM/DL (3.2-5.2); ALT/SGPT 13 U/L (12-78); BILIRUBIN,TOTAL 0.5 MG/DL (0.2-1.0); BLOOD UREA NITROGEN 21 MG/DL (7-18); CALCIUM LEVEL 8.7 MG/DL (8.8-10.2); CARBON DIOXIDE LEVEL 26 MEQ/L (21-32); CHLORIDE LEVEL 106 MEQ/L (98-107); CREATININE FOR GFR 0.78 MG/DL (0.70-1.30); GLOMERULAR FILTRATION RATE > 60.0 (>42); GLUCOSE, FASTING 124 MG/DL (70-100); POTASSIUM SERUM 3.8 MEQ/L (3.5-5.1); SODIUM LEVEL 140 MEQ/L (136-145)
[2019-06-16] MEDS: IPRATROPIUM 0.5MG/ALBUTEROL 2.5MG INH SOL UD 3ML (DUONEB)(J7620) NEB SCH ×3 (07:51→19:02)
[2019-06-16 08:51] LABS: INR 1.94; PROTHROMBIN TIME 21.9 SECONDS (11.8-14.0)
[2019-06-16] MEDS ORDERED: PREVNAR 13 VACCINE SYRINGE (CPT CODE:90670) IM ONE (09:00)
[2019-06-16] MEDS: CARVedilol 3.125 MG TAB PO SCH ×2 (09:00→20:14)
[2019-06-16] MEDS: DOCUSATE SODIUM 100 MG CAP PO SCH ×2 (09:27→20:13)
[2019-06-16] MEDS: ATORVASTATIN 20 MG TAB PO SCH (09:27)
[2019-06-16] MEDS: DONEPEZIL 5 MG TAB PO SCH (09:27)
[2019-06-16] MEDS: PANTOPRAZOLE 40MG TAB (PROTONIX) PO SCH (09:27)
[2019-06-16] MEDS: VITAMIN D 1,000 INTERNATIONAL UNITS TABLET PO SCH (09:27)
[2019-06-16] MEDS: LISINOPRIL *2.5 MG* TAB PO SCH (09:28)
[2019-06-16] MEDS: ASPIRIN 81 MG CHEW TABLET PO SCH (09:29)
[2019-06-16] MEDS: metFORMIN (GLUCOPHAGE) 500 MG TAB PO SCH ×2 (09:29→17:14)
[2019-06-16] MEDS: FUROSEMIDE 40 MG TAB PO SCH (09:29)
[2019-06-16] MEDS: TAMSULOSIN 0.4 MG CAP PO SCH (09:29)
[2019-06-16] MEDS: OMEGA-3 1000MG CAPSULE PO SCH (09:29)
[2019-06-16] MEDS: HumaLOG INSULIN (NovoLOG) PER UNIT SC SCH ×4 (09:30→20:15)
--- NOTE | 2019-06-16 11:51 | HPEPDOC ---
Piano Assembler Note DATE OF ADMISSION: 06/15/19 SOURCE OF ADMISSION INFORMATION: patient and [facility] records CHIEF COMPLAINT:LUE weakness HISTORY OF PRESENT ILLNESS: 73M pmh Afib on Coumadin, CHF,COPD, CAD, CVAs, HLD, DM who presented to [facility] ED on 06/08/19 complaining of syncope with pain and weakness in his left arm and hand with difficulty walking. CTH showed, Age related atrophy and microvascular ischemic changes. No acute intracranial hemorrhage, infarction, or mass/mass effect. He as noted to have a supratherapeutic INR of 3.68 for which his Coumadin was held. He was unable to have an MRI due to a penile implant and CTA was also contraindicated given his contrast allergy. He was continued on his aspirin and statin with a clinical suspicion for stroke. He was also evaluated by therapy, noted to have deficits in mobility and ADLs well below his prior level of function and deemed medically appropriate for discharge to ARU on 06/15/19. On arrival patient reports exertional dyspnea and states he feels better when he uses his nebulizers. REVIEW OF SYSTEMS: The following is a completed review of systems and has been r medardoiewed. Review of systems otherwise unremarkable. PAIN: Patient self reports no pain EYES: No recent vision changes EARS, NOSE, & THROAT: No throat pain, or dysphagia, or rhinorrhea CARDIOVASCULAR: Denies chest pain or palpitations PULMONARY: Denies shortness of breath, + dry cough GASTROINTESTINAL: Denies constipation/diarrhea GENITOURINARY: denies dysuria NEUROLOGICAL:LUE>LLE weakness HEMATOLOGICAL: no easy bruising SKIN: no rash PSYCHIATRIC: Unremarkable All other review of systems found to be negative. PAST MEDICAL HISTORY: as per HPI PAST SURGICAL HISTORY: as per HPI ALLERGIES: Please see below. MEDICATIONS: Please see below. SOCIAL HISTORY:former smoker, occasional ETOH, no illicit drugs DIET: consistent carbs PHYSICAL EXAMINATION: VITAL SIGNS: Please see below. GENERAL: Pleasant and cooperative. No acute distress. HEENT: PERRL. Extraocular movements intact. Clear conjunctiva CARDIOVASCULAR: Irregular rate and rhythm. No murmurs, rubs, or gallops LUNGS: Clear to auscultation bilaterally. No wheezes. No rhonchi ABDOMEN: Soft, nontender, nondistended. Positive bowel sounds. Normal active bowel sounds NEUROLOGICAL: Alert and oriented times three. Cranial nerves II through XII grossly intact. Sensation to light touch diminished LUE, otherwise intact +mild LUE apraxia EXTREMITIES: 5\5 strength right upper extremities. 4-/5 left upper extremity, 4+/5 strength in left lower extremity, 5/5 strength RLE LUE mild swelling SKIN: intact LABORATORY DATA: Please see below. IMAGING:Imaging documentation personally reviewed by record FUNCTIONAL STATUS: Premorbid: Independent with all activities of daily life as well as mobility On Admission: Contact guard with RW with unsteady gait, functional transfers, bed mobility, dressing, toileting Goals: Mod-I with RW community distances, uneven terrain, fall recovery, dynamic balance training, Mod for stairs, dressing, toileting, kitchen tasks, medical optimization, assess for DME needs ASSESSMENT: 73 -year-old M with past medical history of COPD, CHF, Afib, CVAs who presents status post acute onset LUE and LLE weakness clinically suspicious for CVA. PLAN: 1. rehab: PT- strengthen/stretch/maintain ROM bilat LE, dynamic balance training, fall recovery, advance assistive device prn OT- strengthen/stretch/maintain ROM bilat UE, work on improving coordination and fine motor strengthen in LUE as this is his dominant hand 2. Neuro: clinically suspected CVA with left sided hemiparesis (dominant side), CT negative, MRi unable to be obtained due to penile implant, will consider f/u CT scan once suspect infarct evolves -c/u secondary stroke prevention- Statin and ASA -will start PRozac for motor recovery 3. Cardio: pmh Afib on coumadin, monitor INR, c/u beta-todd, CHF c/u lasix, medicine consulted to assist in management, patient reporting chronic cough, consider discontinuing lisinopril -f/u cardiology outpatient 4. Resp: pmh COPD, encourage incentive spirometry, Duoneb treatments ordered, will refer to pulmonology on d/c 5. Endo: DM continue insulin coverage and metformin, monitor FS 6. DVT ppx: on coumadin, teds 7. GI ppx: protonix 8. Dispo: TBD POST ADMISSION PHYSICIAN EVALUATION: Medical and functional status: Description of medical status, medical assessment: As above. Rehabilitation diagnosis and current and prior cold morbid medical conditions as above. Risk of complications and plans to mitigate them as above. Description of functional status current status is as above. Prior status as above. Status compared to preadmission: There are no clinically significant differences between the patient's current status and the information described on the preadmission screening document. Treatment plan anticipated: Treatment plan is as described above. Required disciplines including physical therapy, occupational therapy, others as noted above Intensity of services: 3 hours a day, 6 days a week. Special considerations: There are no specific special or safety considerations that would likely preclude immediate implementation of an intensive rehabilitation program or subsequently influence the plan of care. ATTESTATION: Considering all the information above, it is my best judgment that this patient requires intensive rehabilitation therapy as described above and an inpatient hospital environment due to the complexity of nursing, medical, and rehabilitation needs required by the patient. Furthermore, this patient can reasonably be expected to participate in an benefit from an inpatient re habilitation stay with an interdisciplinary team approach to the delivery of rehabilitation care under the direction and supervision of rehabilitation physician. PROGNOSIS: Excellent ESTIMATED LENGTH OF STAY:10-14 days. PROJECTED DISCHARGE DESTINATION: Home with family support and any durable me dical equipment required to increase functional safety and mobility TIME SPENT COUNSELING AND COORDINATING INITIAL CARE: Greater than 70 minutes. Vital Signs Vital Sign - Last 24 Hours 06/15/19 06/15/19 06/15/19 06/15/19 14:00 20:24 21:00 21:02 Temp 98.3 98.8 98.8 Pulse 77 86 86 86 Resp 18 18 18 B/P (MAP) 118/73 (88) 111/68 (82) 111/68 (82) 111/68 Pulse Ox 97 96 97 06/16/19 06/16/19 06/16/19 06:00 09:00 09:28 Temp 97.8 Pulse 72 72 Resp 18 B/P (MAP) 102/60 (74) 102/60 102/60 Pulse Ox 98 Laboratory Data CBC/BMP Laboratory Tests 06/16/19 06:33 Red Blood Count 4.27 L, Mean Corpuscular Volume 87.6, Mean Corpuscular Hemoglobin 29.0, Mean Corpuscular Hemoglobin Concent 33.2, Red Cell Distribution Width 15.0 H, Neutrophils (%) (Auto) 66.4 H, Lymphocytes (%) (Auto) 22.6 L, Monocytes (%) (Auto) 7.8 H, Eosinophils (%) (Auto) 2.2, Basophils (%) (Auto) 0.6, Neutrophils # (Auto) 5.5, Lymphocytes # (Auto) 1.9, Monocytes # (Auto) 0.7, Eosinophils # (Auto) 0.2, Basophils # (Auto) 0.1, Calcium Level 8.7 L, Aspartate Amino Transf (AST/SGOT) 7, Alanine Aminotransferase (ALT/SGPT) 13, Alkaline Phosphatase 59, Total Bilirubin 0.5, Total Protein 6.0 L, Albumin 2.6 L Labs 24H Laboratory Tests 2 06/15/19 17:00: Bedside Glucose (Misc Panel) 145H 06/15/19 18:51: Bedside Glucose (Misc Panel) 228H 06/15/19 20:18: Bedside Glucose (Misc Panel) 141H 06/16/19 06:33: Immature Granulocyte % (Auto) 0.4, White Blood Count 8.3, Red Blood Count 4.27L, Hemoglobin 12.4L, Hematocrit 37.4L, Mean Corpuscular Volume 87.6, Mean Corpuscular Hemoglobin 29.0, Mean Corpuscular Hemoglobin Concent 33.2, Red Cell Distribution Width 15.0H, Platelet Count 185, Neutrophils (%) (Auto) 66.4H, Lymphocytes (%) (Auto) 22.6L, Monocytes (%) (Auto) 7.8H, Eosinophils (%) (Auto) 2.2, Basophils (%) (Auto) 0.6, Neutrophils # (Auto) 5.5, Lymphocytes # (Auto) 1.9, Monocytes # (Auto) 0.7, Eosinophils # (Auto) 0.2, Basophils # (Auto) 0.1, Nucleated Red Blood Cells % (auto) 0.0, Prothrombin Time 21.9H, Prothromb Time International Ratio 1.94, Anion Gap 8, Glomerular Filtration Rate > 60.0, Blood Urea Nitrogen 21H, Creatinine 0.78, Sodium Level 140, Potassium Level 3.8, Chloride Level 106, Carbon Dioxide Level 26, Calcium Level 8.7L, Aspartate Amino Transf (AST/SGOT) 7, Alanine Aminotransferase (ALT/SGPT) 13, Alkaline Phosphatase 59, Total Bilirubin 0.5, Total Protein 6.0L, Albumin 2.6L, Albumin/Globulin Ratio 0.76L FSBS Laboratory Tests Test 06/15/19 17:00 06/15/19 18:51 06/15/19 20:18 Range/Units Bedside Glucose (Misc Panel) 145 228 141 83-110 MG/DL Home Medications Scheduled Aspirin (Ecotrin) 81 Mg Tablet.dr, 81 MG PO DAILY, (Reported) Atorvastatin Calcium (Atorvastatin Calcium) 20 Mg Tablet, 40 MG PO DAILY Carvedilol (Carvedilol) 6.25 Mg Tab, 3.125 MG PO BID, (Reported) Donepezil HCl (Donepezil HCl) 10 Mg Tablet, 10 MG PO DAILY, (Reported) Furosemide (Furosemide) 40 Mg Tablet, 40 MG PO DAILY, (Reported) Lisinopril (Lisinopril) 2.5 Mg Tablet, 2.5 MG PO DAILY, (Reported) Metformin HCl (Metformin HCl ER) 500 Mg Tab.er.24h, 500 MG PO BID, (Reported) [place]-3/Dha/Epa/Fish Oil (Fish Oil 1,000 mg Softgel) 1 Each Capsule, 1 CAP PO DAILY, (Reported) Tamsulosin Hcl (Tamsulosin HCl) 0.4 Mg Capsule, 0.4 MG PO DAILY, (Reported) Vitamin D (Vitamin D3) 1,000 Unit Tablet, 1,000 UNITS PO DAILY, (Reported) Warfarin Sodium (Warfarin Sodium) 2 Mg Tablet, 2 MG PO QPM, (Reported) Allergies Coded Allergies: Contrast Media (Verified Allergy, Severe, 06/12/19) A-FIB/CHADSVASC A-FIB History Current/History of A-Fib/PAF?: Yes Current PO Anticoag Therapy: Yes LAUREN WRAY MD Jun 16, 2019 11:51
[2019-06-16 14:00] VITALS: BP 115/64
[2019-06-16] MEDS: WARFARIN SOD 3 MG TAB PO SCH (17:14)
[2019-06-16 20:00] VITALS: BP 92/61
[2019-06-16] MEDS: FLUoxetine 20 MG CAP PO SCH (20:13)
[2019-06-16] MEDS: SENNA 8.6 MG TAB (SENOKOT) PO SCH (20:14)
[2019-06-17] MEDS: ACETAMINOPHEN TAB 650MG DOSE (2X325MG) PO PRN (02:46)
[2019-06-17 05:26] VITALS: BP 127/70
[2019-06-17 06:38] LABS: INR 2.13; PROTHROMBIN TIME 23.6 SECONDS (11.8-14.0)
[2019-06-17] MEDS: IPRATROPIUM 0.5MG/ALBUTEROL 2.5MG INH SOL UD 3ML (DUONEB)(J7620) NEB SCH ×3 (07:49→20:00)
[2019-06-17] MEDS: HumaLOG INSULIN (NovoLOG) PER UNIT SC SCH ×4 (08:29→20:12)
[2019-06-17] MEDS: PANTOPRAZOLE 40MG TAB (PROTONIX) PO SCH (08:30)
[2019-06-17] MEDS: VITAMIN D 1,000 INTERNATIONAL UNITS TABLET PO SCH (08:30)
[2019-06-17] MEDS: metFORMIN (GLUCOPHAGE) 500 MG TAB PO SCH ×2 (08:30→18:11)
[2019-06-17] MEDS: OMEGA-3 1000MG CAPSULE PO SCH (08:30)
[2019-06-17] MEDS: FUROSEMIDE 40 MG TAB PO SCH (08:31)
[2019-06-17] MEDS: CARVedilol 3.125 MG TAB PO SCH ×2 (08:31→21:00)
[2019-06-17] MEDS: ATORVASTATIN 20 MG TAB PO SCH (08:31)
[2019-06-17] MEDS: TAMSULOSIN 0.4 MG CAP PO SCH (08:31)
[2019-06-17] MEDS: ASPIRIN 81 MG CHEW TABLET PO SCH (08:32)
[2019-06-17] MEDS: LISINOPRIL *2.5 MG* TAB PO SCH (08:32)
[2019-06-17] MEDS: DONEPEZIL 5 MG TAB PO SCH (08:32)
[2019-06-17] MEDS: DOCUSATE SODIUM 100 MG CAP PO SCH ×2 (08:39→20:59)
[2019-06-17] MEDS: LIDOCAINE 5% (LIDODERM) PATCH TD SCH (12:17)
[2019-06-17 14:00] VITALS: BP 87/62
--- NOTE | 2019-06-17 14:54 | IPNPDOC ---
PM&R Progress Note DATE OF SERVICE: Jun 16, 2019 Radio Repairer Progress Note Subjective: Patient reporting he has neck pain and usually wears a soft cervical collar for this. REVIEW OF SYSTEMS: The following is a completed review of systems and has been reviewed. Review of systems otherwise unremarkable. PAIN: Patient self reports no pain EYES: No recent vision changes EARS, NOSE, & THROAT: No throat pain, or dysphagia, or rhinorrhea CARDIOVASCULAR: Denies chest pain or palpitations PULMONARY: Denies shortness of breath, + dry cough GASTROINTESTINAL: Denies constipation/diarrhea GENITOURINARY: denies dysuria NEUROLOGICAL:LUE>LLE weakness HEMATOLOGICAL: no easy bruising SKIN: no rash PSYCHIATRIC: Unremarkable All other review of systems found to be negative. PHYSICAL EXAMINATION: VITAL SIGNS: Please see below. GENERAL: Pleasant and cooperative. No acute distress. HEENT: PERRL. Extraocular movements intact. Clear conjunctiva CARDIOVASCULAR: Irregular rate and rhythm. No murmurs, rubs, or gallops LUNGS: Clear to auscultation bilaterally. No wheezes. No rhonchi ABDOMEN: Soft, nontender, nondistended. Positive bowel sounds. Normal active bowel sounds NEUROLOGICAL: Alert and oriented times three. Cranial nerves II through XII grossly intact. Sensation to light touch diminished LUE, otherwise intact +mild LUE apraxia EXTREMITIES: 5\5 strength right upper extremities. 4-/5 left upper extremity, 4+/5 strength in left lower extremity, 5/5 strength RLE LUE mild swelling SKIN: intact ASSESSMENT: 73 -year-old M with past medical history of COPD, CHF, Afib, CVAs who presents status post acute onset LUE and LLE weakness clinically suspicious for CVA. PLAN: 1. rehab: PT- strengthen/stretch/maintain ROM bilat LE, dynamic balance training, fall recovery, advance assistive device prn OT- strengthen/stretch/maintain ROM bilat UE, work on improving coordination and fine motor strengthen in LUE as this is his dominant hand 2. Neuro: clinically suspected CVA with left sided hemiparesis (dominant side), CT negative, MRi unable to be obtained due to penile implant, will consider f/u CT scan once suspect infarct evolves -c/u secondary stroke prevention- Statin and ASA -will start PRozac for motor recovery 3. Cardio: pmh Afib on coumadin, monitor INR, c/u beta-todd, CHF c/u lasix, medicine consulted to assist in management, patient reporting chronic cough, consider discontinuing lisinopril -f/u cardiology outpatient 4. Resp: pmh COPD, encourage incentive spirometry, Duoneb treatments ordered, will refer to pulmonology on d/c 5. Endo: DM continue insulin coverage and metformin, monitor FS 6. DVT ppx: on coumadin, teds 7. GI ppx: protonix 8. Pain: will order cervical neck collar 8. Dispo: TBD Allergies Coded Allergies: Contrast Media (Verified Allergy, Severe, 06/12/19) Vital Signs Vital Signs Date Time Temp Pulse Resp B/P (MAP) Pulse Ox O2 Delivery O2 Flow Rate FiO2 06/17/19 08:32 127/70 06/17/19 08:31 87 06/17/19 05:26 97.6 18 98 Laboratory Data Labs 24H Laboratory Tests 2 06/16/19 16:48: Bedside Glucose (Misc Panel) 176H 06/16/19 19:38: Bedside Glucose (Misc Panel) 187H 06/17/19 06:05: Prothrombin Time 23.6H, Prothromb Time International Ratio 2.13 06/17/19 06:40: Bedside Glucose (Misc Panel) 118H 06/17/19 11:53: Bedside Glucose (Misc Panel) 131H Current Medications Current Medications Current Medications Medications (Trade) Dose Ordered Sig/Nelida Route PRN Reason Start Time Stop Time Status Last Admin Dose Admin Acetaminophen (Tylenol Tab) 650 mg Q4HP PRN PO fever/pain 06/15/19 11:30 06/17/19 02:46 Albuterol/ Ipratropium (Duoneb (Ipr 0.5mg/Alb 2.5mg)) 3 ml RTID NEB 06/15/19 20:00 06/17/19 13:21 Aspirin (Aspirin Chewable) 81 mg DAILY PO 06/16/19 09:00 06/17/19 08:32 Atorvastatin Calcium (Lipitor) 20 mg DAILY PO 06/16/19 09:00 06/17/19 08:31 Bisacodyl (Dulcolax Suppository) 10 mg DAILYPRN PRN AR CONSTIPATION 06/15/19 11:30 Carvedilol (COReg) 3.125 mg Q12H PO 06/15/19 21:00 06/17/19 08:31 Dextrose (Dextrose 50%) 25 ml ASDIRECTED PRN IV SEE LABEL COMMENTS 06/15/19 11:30 Docusate Sodium (Colace) 100 mg BID PO 06/15/19 09:00 06/16/19 09:27 Donepezil HCl (AriCEPT) 10 mg DAILY PO 06/16/19 09:00 06/17/19 08:32 Fish Oil ([place]-3 (1000mg)) 1 cap DAILY PO 06/16/19 09:00 06/17/19 08:30 Fluoxetine HCl (PROzac) 20 mg QHS PO 06/15/19 21:00 06/16/19 20:13 Furosemide (Lasix) 40 mg DAILY PO 06/16/19 09:00 06/17/19 08:31 Glucagon (Glucagon) 1 mg ASDIRECTED PRN SC SEE LABEL COMMENTS 06/15/19 11:30 Glucose (Glucose) 16 GM ASDIRECTED PRN PO SEE LABEL COMMENTS 06/15/19 11:30 Insulin Human Lispro (HumaLOG INSULIN) SEE PROTOCOL TABLE AC SC 06/15/19 12:00 06/17/19 12:17 Insulin Human Lispro (HumaLOG INSULIN) SEE PROTOCOL TABLE QHS SC 06/15/19 21:00 Lidocaine (Lidoderm Patch) 1 patch DAILY TD 06/17/19 09:00 06/17/19 12:17 Lisinopril (Prinivil) 2.5 mg DAILY PO 06/16/19 09:00 06/17/19 08:32 Metformin HCl (Glucophage) 500 mg BID@08,18 PO 06/15/19 18:00 06/17/19 08:30 Non-Formulary Medication ( See Comment Field Below ) REMOVE LIDODERM PATCH DAILY@21 XX 06/17/19 21:00 Pantoprazole Sodium (Protonix) 40 mg DAILY PO 06/15/19 09:00 06/17/19 08:30 Senna (Senokot) 1 tab QHS PO 06/15/19 21:00 06/15/19 21:01 Tamsulosin HCl (Flomax) 0.4 mg DAILY PO 06/16/19 09:00 06/17/19 08:31 Vitamin D (Vitamin D) 1,000 units DAILY PO 06/16/19 09:00 06/17/19 08:30 Warfarin Sodium (Coumadin) 3 mg DAILY@17 PO 06/16/19 17:00 06/16/19 17:14 LAUREN WRAY MD Jun 17, 2019 14:54
--- NOTE | 2019-06-17 14:56 | IPNPDOC ---
PM&R Progress Note DATE OF SERVICE: Jun 17, 2019 Appointment Coordinator Progress Note Subjective: Patient reporting his neck pain is much better with the collar. He reports he is progressing well in therapy. REVIEW OF SYSTEMS: The following is a completed review of systems and has been reviewed. Review of systems otherwise unremarkable. PAIN: Patient self reports no pain EYES: No recent vision changes EARS, NOSE, & THROAT: No throat pain, or dysphagia, or rhinorrhea CARDIOVASCULAR: Denies chest pain or palpitations PULMONARY: Denies shortness of breath, + dry cough GASTROINTESTINAL: Denies constipation/diarrhea GENITOURINARY: denies dysuria NEUROLOGICAL:LUE>LLE weakness HEMATOLOGICAL: no easy bruising SKIN: no rash PSYCHIATRIC: Unremarkable All other review of systems found to be negative. PHYSICAL EXAMINATION: VITAL SIGNS: Please see below. GENERAL: Pleasant and cooperative. No acute distress. HEENT: PERRL. Extraocular movements intact. Clear conjunctiva CARDIOVASCULAR: Irregular rate and rhythm. No murmurs, rubs, or gallops LUNGS: Clear to auscultation bilaterally. No wheezes. No rhonchi ABDOMEN: Soft, nontender, nondistended. Positive bowel sounds. Normal active bowel sounds NEUROLOGICAL: Alert and oriented times three. Cranial nerves II through XII grossly intact. Sensation to light touch diminished LUE, otherwise intact +mild LUE apraxia EXTREMITIES: 5\5 strength right upper extremities. 4-/5 left upper extremity, 4+/5 strength in left lower extremity, 5/5 strength RLE LUE mild swelling SKIN: intact ASSESSMENT: 73 -year-old M with past medical history of COPD, CHF, Afib, CVAs who presents status post acute onset LUE and LLE weakness clinically suspicious for CVA. PLAN: 1. rehab: PT- strengthen/stretch/maintain ROM bilat LE, dynamic balance training, fall recovery, advance assistive device prn OT- strengthen/stretch/maintain ROM bilat UE, work on improving coordination and fine motor strengthen in LUE as this is his dominant hand 2. Neuro: clinically suspected CVA with left sided hemiparesis (dominant side), CT negative, MRi unable to be obtained due to penile implant, will consider f/u CT scan once suspect infarct evolves -c/u secondary stroke prevention- Statin and ASA -will start PRozac for motor recovery 3. Cardio: pmh Afib on coumadin, monitor INR, c/u beta-todd, CHF c/u lasix, medicine consulted to assist in management, patient reporting chronic cough, consider discontinuing lisinopril -f/u cardiology outpatient 4. Resp: pmh COPD, encourage incentive spirometry, Duoneb treatments ordered, will refer to pulmonology on d/c 5. Endo: DM continue insulin coverage and metformin, monitor FS 6. DVT ppx: on coumadin, teds 7. GI ppx: protonix 8. Pain: c/u cervical neck collar, will trial lidoderm patch 8. Dispo: TBD Allergies Coded Allergies: Contrast Media (Verified Allergy, Severe, 06/12/19) Vital Signs Vital Signs Date Time Temp Pulse Resp B/P (MAP) Pulse Ox O2 Delivery O2 Flow Rate FiO2 06/17/19 08:32 127/70 06/17/19 08:31 87 06/17/19 05:26 97.6 18 98 Laboratory Data Labs 24H Laboratory Tests 2 06/16/19 16:48: Bedside Glucose (Misc Panel) 176H 06/16/19 19:38: Bedside Glucose (Misc Panel) 187H 06/17/19 06:05: Prothrombin Time 23.6H, Prothromb Time International Ratio 2.13 06/17/19 06:40: Bedside Glucose (Misc Panel) 118H 06/17/19 11:53: Bedside Glucose (Misc Panel) 131H Current Medications Current Medications Current Medications Medications (Trade) Dose Ordered Sig/Nelida Route PRN Reason Start Time Stop Time Status Last Admin Dose Admin Acetaminophen (Tylenol Tab) 650 mg Q4HP PRN PO fever/pain 06/15/19 11:30 06/17/19 02:46 Albuterol/ Ipratropium (Duoneb (Ipr 0.5mg/Alb 2.5mg)) 3 ml RTID NEB 06/15/19 20:00 06/17/19 13:21 Aspirin (Aspirin Chewable) 81 mg DAILY PO 06/16/19 09:00 06/17/19 08:32 Atorvastatin Calcium (Lipitor) 20 mg DAILY PO 06/16/19 09:00 06/17/19 08:31 Bisacodyl (Dulcolax Suppository) 10 mg DAILYPRN PRN AL CONSTIPATION 06/15/19 11:30 Carvedilol (COReg) 3.125 mg Q12H PO 06/15/19 21:00 06/17/19 08:31 Dextrose (Dextrose 50%) 25 ml ASDIRECTED PRN IV SEE LABEL COMMENTS 06/15/19 11:30 Docusate Sodium (Colace) 100 mg BID PO 06/15/19 09:00 06/16/19 09:27 Donepezil HCl (AriCEPT) 10 mg DAILY PO 06/16/19 09:00 06/17/19 08:32 Fish Oil ([place]-3 (1000mg)) 1 cap DAILY PO 06/16/19 09:00 06/17/19 08:30 Fluoxetine HCl (PROzac) 20 mg QHS PO 06/15/19 21:00 06/16/19 20:13 Furosemide (Lasix) 40 mg DAILY PO 06/16/19 09:00 06/17/19 08:31 Glucagon (Glucagon) 1 mg ASDIRECTED PRN SC SEE LABEL COMMENTS 06/15/19 11:30 Glucose (Glucose) 16 GM ASDIRECTED PRN PO SEE LABEL COMMENTS 06/15/19 11:30 Insulin Human Lispro (HumaLOG INSULIN) SEE PROTOCOL TABLE AC SC 06/15/19 12:00 06/17/19 12:17 Insulin Human Lispro (HumaLOG INSULIN) SEE PROTOCOL TABLE QHS SC 06/15/19 21:00 Lidocaine (Lidoderm Patch) 1 patch DAILY TD 06/17/19 09:00 06/17/19 12:17 Lisinopril (Prinivil) 2.5 mg DAILY PO 06/16/19 09:00 06/17/19 08:32 Metformin HCl (Glucophage) 500 mg BID@18 PO 06/15/19 18:00 06/17/19 08:30 Non-Formulary Medication ( See Comment Field Below ) REMOVE LIDODERM PATCH DAILY@21 XX 06/17/19 21:00 Pantoprazole Sodium (Protonix) 40 mg DAILY PO 06/15/19 09:00 06/17/19 08:30 Senna (Senokot) 1 tab QHS PO 06/15/19 21:00 06/15/19 21:01 Tamsulosin HCl (Flomax) 0.4 mg DAILY PO 06/16/19 09:00 06/17/19 08:31 Vitamin D (Vitamin D) 1,000 units DAILY PO 06/16/19 09:00 06/17/19 08:30 Warfarin Sodium (Coumadin) 3 mg DAILY@17 PO 06/16/19 17:00 06/16/19 17:14 LAUREN WRAY MD Jun 17, 2019 14:56
[2019-06-17 15:33] VITALS: BP 102/60
[2019-06-17] MEDS: WARFARIN SOD 3 MG TAB PO SCH (17:00)
[2019-06-17] MEDS: SENNA 8.6 MG TAB (SENOKOT) PO SCH (20:59)
[2019-06-17] MEDS: FLUoxetine 20 MG CAP PO SCH (21:00)
[2019-06-17] MEDS: **NOTE PATIENT COMMENT** MISC XX SCH (21:00)
[2019-06-17 21:11] VITALS: BP 114/63
[2019-06-18 05:49] VITALS: BP 115/78
[2019-06-18] MEDS: IPRATROPIUM 0.5MG/ALBUTEROL 2.5MG INH SOL UD 3ML (DUONEB)(J7620) NEB SCH ×3 (07:17→19:48)
[2019-06-18 07:46] LABS: INR 2.53; PROTHROMBIN TIME 27.1 SECONDS (11.8-14.0)
[2019-06-18] MEDS: ATORVASTATIN 20 MG TAB PO SCH (08:37)
[2019-06-18] MEDS: metFORMIN (GLUCOPHAGE) 500 MG TAB PO SCH ×2 (08:37→17:14)
[2019-06-18] MEDS: PANTOPRAZOLE 40MG TAB (PROTONIX) PO SCH (08:37)
[2019-06-18] MEDS: VITAMIN D 1,000 INTERNATIONAL UNITS TABLET PO SCH (08:37)
[2019-06-18] MEDS: OMEGA-3 1000MG CAPSULE PO SCH (08:37)
[2019-06-18] MEDS: HumaLOG INSULIN (NovoLOG) PER UNIT SC SCH ×4 (08:37→21:00)
[2019-06-18] MEDS: TAMSULOSIN 0.4 MG CAP PO SCH (08:37)
[2019-06-18] MEDS: ASPIRIN 81 MG CHEW TABLET PO SCH (08:37)
[2019-06-18] MEDS: FUROSEMIDE 40 MG TAB PO SCH (08:37)
[2019-06-18] MEDS: DONEPEZIL 5 MG TAB PO SCH (08:38)
[2019-06-18] MEDS: DOCUSATE SODIUM 100 MG CAP PO SCH ×2 (08:38→21:00)
[2019-06-18] MEDS: CARVedilol 3.125 MG TAB PO SCH ×2 (08:41→21:00)
[2019-06-18] MEDS: LISINOPRIL *2.5 MG* TAB PO SCH (08:41)
[2019-06-18] MEDS: LIDOCAINE 5% (LIDODERM) PATCH TD SCH (08:42)
[2019-06-18 14:00] VITALS: BP 100/68
[2019-06-18] MEDS: WARFARIN SOD 3 MG TAB PO SCH (17:15)
[2019-06-18] MEDS: SENNA 8.6 MG TAB (SENOKOT) PO SCH (21:00)
[2019-06-18 21:57] VITALS: BP 100/54
[2019-06-18] MEDS: FLUoxetine 20 MG CAP PO SCH (21:58)
[2019-06-18] MEDS: **NOTE PATIENT COMMENT** MISC XX SCH (21:59)
[2019-06-19 06:00] VITALS: BP 136/69
[2019-06-19 07:32] LABS: INR 2.78; PROTHROMBIN TIME 29.2 SECONDS (11.8-14.0)
[2019-06-19] MEDS: ATORVASTATIN 20 MG TAB PO SCH (09:32)
[2019-06-19] MEDS: PANTOPRAZOLE 40MG TAB (PROTONIX) PO SCH (09:32)
[2019-06-19] MEDS: CARVedilol 3.125 MG TAB PO SCH ×2 (09:32→21:00)
[2019-06-19] MEDS: HumaLOG INSULIN (NovoLOG) PER UNIT SC SCH ×4 (09:32→21:00)
[2019-06-19] MEDS: DOCUSATE SODIUM 100 MG CAP PO SCH ×2 (09:32→21:00)
[2019-06-19] MEDS: DONEPEZIL 5 MG TAB PO SCH (09:33)
[2019-06-19] MEDS: VITAMIN D 1,000 INTERNATIONAL UNITS TABLET PO SCH (09:33)
[2019-06-19] MEDS: metFORMIN (GLUCOPHAGE) 500 MG TAB PO SCH ×2 (09:33→17:24)
[2019-06-19] MEDS: LISINOPRIL *2.5 MG* TAB PO SCH (09:33)
[2019-06-19] MEDS: ASPIRIN 81 MG CHEW TABLET PO SCH (09:33)
[2019-06-19] MEDS: OMEGA-3 1000MG CAPSULE PO SCH (09:33)
[2019-06-19] MEDS: FUROSEMIDE 40 MG TAB PO SCH (09:33)
[2019-06-19] MEDS: TAMSULOSIN 0.4 MG CAP PO SCH (09:33)
[2019-06-19] MEDS: LIDOCAINE 5% (LIDODERM) PATCH TD SCH (09:34)
[2019-06-19] MEDS: IPRATROPIUM 0.5MG/ALBUTEROL 2.5MG INH SOL UD 3ML (DUONEB)(J7620) NEB SCH ×2 (15:04→20:22)
[2019-06-19 17:06] VITALS: BP 101/63
[2019-06-19] MEDS: WARFARIN SOD 3 MG TAB PO SCH (17:23)
--- NOTE | 2019-06-19 19:28 | IPNPDOC ---
Text Note Date of Service The patient was seen on 06/19/19. NOTE SUBJECTIVE: Mr. Shaver is status post CVA. He is doing well in the acute rehabilitation unit; he is working well with the therapists. OBJECTIVE: HENT: Patient is wearing a soft cervical collar, oral mucosa is moist Cardiovascular: Regular rate and rhythm, no appreciable murmur. Respiratory: Clear to auscultation with good air movement. Abdomen: Soft, nontender, nondistended, mild central obesity, relative to his overall body habitus. Extremities: No peripheral edema. Neuro: Unable to assess gait at this time Assessment/plan 1. Apparent acute CVA. Patient had acute onset of left-sided weakness. He was unable to stand. No focal lesion was found to MRI or CT. Patient is on appropriate medical therapy with aspirin and Lipitor. Patient is progressing with his acute rehabilitation. 2. Chronic atrial fibrillation. The patient remains on chronic anticoagulation with Coumadin. His INR is appropriate. Heart rate remains controlled with Coreg. 3. Rem-nyaubnx-jxigmxcqt diabetes mellitus. Patient continues on hospital sliding scale, he is on consistent carbohydrate diet. The patient is usually on metformin and this has been restored to his regimen. 4. Chronic systolic congestive heart failure. Patient has a known ejection fraction of 40% with moderate pulmonary hypertension. He remains on Coreg, lisinopril and Lasix. He is not having an acute exacerbation. VS,Fishbone, I+O VS, Fishbone, I+O Vital Signs Date Time Temp Pulse Resp B/P (MAP) Pulse Ox O2 Delivery O2 Flow Rate FiO2 06/19/19 17:06 97.7 77 18 101/63 (67) 98 I&O- Last 24 Hours up to 6 AM 06/19/19 06:00 Intake Total 1758 ml Output Total 1050 ml Balance 708 ml POLI REYES MD Jun 19, 2019 19:28
[2019-06-19 20:00] VITALS: BP 107/63
[2019-06-19] MEDS: **NOTE PATIENT COMMENT** MISC XX SCH (21:00)
[2019-06-19] MEDS: SENNA 8.6 MG TAB (SENOKOT) PO SCH (21:00)
[2019-06-19] MEDS: FLUoxetine 20 MG CAP PO SCH (21:34)
[2019-06-20 04:00] VITALS: BP 111/72
[2019-06-20 07:09] LABS: INR 3.19; PROTHROMBIN TIME 32.6 SECONDS (11.8-14.0)
[2019-06-20] MEDS: IPRATROPIUM 0.5MG/ALBUTEROL 2.5MG INH SOL UD 3ML (DUONEB)(J7620) NEB SCH ×3 (07:25→20:58)
[2019-06-20] MEDS: LIDOCAINE 5% (LIDODERM) PATCH TD SCH (07:46)
[2019-06-20] MEDS: ASPIRIN 81 MG CHEW TABLET PO SCH (07:47)
[2019-06-20] MEDS: TAMSULOSIN 0.4 MG CAP PO SCH (07:47)
[2019-06-20] MEDS: PANTOPRAZOLE 40MG TAB (PROTONIX) PO SCH (07:47)
[2019-06-20] MEDS: metFORMIN (GLUCOPHAGE) 500 MG TAB PO SCH ×2 (07:47→17:44)
[2019-06-20] MEDS: HumaLOG INSULIN (NovoLOG) PER UNIT SC SCH ×4 (07:47→20:03)
[2019-06-20] MEDS: LISINOPRIL *2.5 MG* TAB PO SCH (07:48)
[2019-06-20] MEDS: CARVedilol 3.125 MG TAB PO SCH ×2 (07:49→20:00)
[2019-06-20] MEDS: DONEPEZIL 5 MG TAB PO SCH (07:50)
[2019-06-20] MEDS: DOCUSATE SODIUM 100 MG CAP PO SCH ×2 (07:50→20:01)
[2019-06-20] MEDS: ATORVASTATIN 20 MG TAB PO SCH (07:50)
[2019-06-20] MEDS: FUROSEMIDE 40 MG TAB PO SCH (07:50)
[2019-06-20] MEDS: OMEGA-3 1000MG CAPSULE PO SCH (07:50)
[2019-06-20] MEDS: VITAMIN D 1,000 INTERNATIONAL UNITS TABLET PO SCH (07:50)
[2019-06-20 14:00] VITALS: BP 106/56
[2019-06-20] MEDS: WARFARIN SOD 3 MG TAB PO SCH (17:44)
[2019-06-20 20:00] VITALS: BP 95/64
[2019-06-20] MEDS: SENNA 8.6 MG TAB (SENOKOT) PO SCH (20:01)
[2019-06-20] MEDS: FLUoxetine 20 MG CAP PO SCH (20:14)
[2019-06-20] MEDS: **NOTE PATIENT COMMENT** MISC XX SCH (20:14)
--- NOTE | 2019-06-20 20:40 | IPNPDOC ---
Text Note Date of Service The patient was seen on 06/20/19. NOTE The patient continues to do well in rehabilitation. He has been very motivated to educate himself about stroke. He is reviewing written material. OBJECTIVE: HENT: Patient is wearing a soft cervical collar, oral mucosa is moist Cardiovascular: Regular rate and rhythm, no appreciable murmur. Respiratory: Clear to auscultation with good air movement. Abdomen: Soft, nontender, nondistended, mild central obesity, relative to his overall body habitus. Extremities: No peripheral edema. Neuro: Unable to assess gait at this time Assessment/plan 1. Apparent acute CVA. Patient had acute onset of left-sided weakness. He was unable to stand. No focal lesion was found to MRI or CT. Patient is on appropriate medical therapy with aspirin and Lipitor. Patient is progressing with his acute rehabilitation. We are hopeful of him regaining ambulatory skill where he can return home. 2. Chronic atrial fibrillation. The patient remains on chronic anticoagulation with Coumadin. His INR is appropriate. Heart rate remains controlled with Coreg. 3. Iym-twrjpni-qivjgtcsh diabetes mellitus. Patient continues on hospital sliding scale, he is on consistent carbohydrate diet. The patient is usually on metformin and this has been restored to his regimen. 4. Chronic systolic congestive heart failure. Patient has a known ejection fraction of 40% with moderate pulmonary hypertension. He remains on Coreg, lisinopril and Lasix. He is not having an acute exacerbation. VS,Fishbone, I+O VS, Fishbone, I+O Vital Signs Date Time Temp Pulse Resp B/P (MAP) Pulse Ox O2 Delivery O2 Flow Rate FiO2 06/20/19 20:00 94 95/64 06/20/19 14:00 97.6 18 96 I&O- Last 24 Hours up to 6 AM 06/20/19 06:00 Intake Total 940 ml Output Total 1200 ml Balance -260 ml POLI REYES MD Jun 20, 2019 20:40
[2019-06-21 06:00] VITALS: BP 124/80
[2019-06-21] MEDS: IPRATROPIUM 0.5MG/ALBUTEROL 2.5MG INH SOL UD 3ML (DUONEB)(J7620) NEB SCH ×3 (07:30→20:18)
[2019-06-21 07:34] LABS: INR 3.33; PROTHROMBIN TIME 33.8 SECONDS (11.8-14.0)
[2019-06-21] MEDS: LIDOCAINE 5% (LIDODERM) PATCH TD SCH (08:19)
[2019-06-21] MEDS: HumaLOG INSULIN (NovoLOG) PER UNIT SC SCH ×4 (08:20→21:00)
[2019-06-21] MEDS: OMEGA-3 1000MG CAPSULE PO SCH (08:21)
[2019-06-21] MEDS: ASPIRIN 81 MG CHEW TABLET PO SCH (08:21)
[2019-06-21] MEDS: VITAMIN D 1,000 INTERNATIONAL UNITS TABLET PO SCH (08:21)
[2019-06-21] MEDS: DOCUSATE SODIUM 100 MG CAP PO SCH ×2 (08:21→21:22)
[2019-06-21] MEDS: TAMSULOSIN 0.4 MG CAP PO SCH (08:21)
[2019-06-21] MEDS: PANTOPRAZOLE 40MG TAB (PROTONIX) PO SCH (08:21)
[2019-06-21] MEDS: LISINOPRIL *2.5 MG* TAB PO SCH (08:21)
[2019-06-21] MEDS: metFORMIN (GLUCOPHAGE) 500 MG TAB PO SCH ×2 (08:21→17:08)
[2019-06-21] MEDS: ATORVASTATIN 20 MG TAB PO SCH (08:21)
[2019-06-21] MEDS: FUROSEMIDE 40 MG TAB PO SCH (08:22)
[2019-06-21] MEDS: DONEPEZIL 5 MG TAB PO SCH (08:22)
[2019-06-21] MEDS: CARVedilol 3.125 MG TAB PO SCH ×2 (08:22→21:22)
[2019-06-21 14:00] VITALS: BP 100/55
--- NOTE | 2019-06-21 16:03 | IPNPDOC ---
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 REVIEW OF SYSTEMS: The following is a completed review of systems and has been reviewed. Review of systems otherwise unremarkable. PAIN: Patient self reports no pain EYES: No recent vision changes EARS, NOSE, & THROAT: No throat pain, or dysphagia, or rhinorrhea CARDIOVASCULAR: Denies chest pain or palpitations PULMONARY: Denies shortness of breath, + dry cough GASTROINTESTINAL: Denies constipation/diarrhea GENITOURINARY: denies dysuria NEUROLOGICAL:LUE>LLE weakness HEMATOLOGICAL: no easy bruising SKIN: no rash PSYCHIATRIC: Unremarkable All other review of systems found to be negative. PHYSICAL EXAMINATION: VITAL SIGNS: Please see below. GENERAL: Pleasant and cooperative. No acute distress. HEENT: PERRL. Extraocular movements intact. Clear conjunctiva CARDIOVASCULAR: Irregular rate and rhythm. No murmurs, rubs, or gallops LUNGS: Clear to auscultation bilaterally. No wheezes. No rhonchi ABDOMEN: Soft, nontender, nondistended. Positive bowel sounds. Normal active bowel sounds NEUROLOGICAL: Alert and oriented times three. Cranial nerves II through XII grossly intact. Sensation to light touch diminished LUE, otherwise intact +mild LUE apraxia EXTREMITIES: 5\5 strength right upper extremities. 4-/5 left upper extremity, 4+/5 strength in left lower extremity, 5/5 strength RLE LUE mild swelling SKIN: intact ASSESSMENT: 73 -year-old M with past medical history of COPD, CHF, Afib, CVAs who presents status post acute onset LUE and LLE weakness clinically suspicious for CVA. PLAN: 1. rehab: PT- strengthen/stretch/maintain ROM bilat LE, dynamic balance training, fall recovery, advance assistive device prn- room privileges tonight OT- strengthen/stretch/maintain ROM bilat UE, work on improving coordination and fine motor strengthen in LUE as this is his dominant hand 2. Neuro: clinically suspected CVA with left sided hemiparesis (dominant side), CT negative, MRi unable to be obtained due to penile implant, will consider f/u CT scan once suspect infarct evolves -c/u secondary stroke prevention- Statin and ASA -will start PRozac for motor recovery 3. Cardio: pmh Afib on coumadin, monitor INR, c/u beta-todd, CHF c/u lasix, medicine consulted to assist in management, patient reporting chronic cough, consider discontinuing lisinopril -f/u cardiology outpatient 4. Resp: pmh COPD, encourage incentive spirometry, Duoneb treatments ordered, will refer to pulmonology on d/c 5. Endo: DM continue insulin coverage and metformin, monitor FS 6. DVT ppx: on coumadin, teds 7. GI ppx: protonix 8. Pain: c/u cervical neck collar, c/u lidoderm patch 8. Dispo: TBD Allergies Coded Allergies: Contrast Media (Verified Allergy, Severe, 06/12/19) Vital Signs Vital Signs Date Time Temp Pulse Resp B/P (MAP) Pulse Ox O2 Delivery O2 Flow Rate FiO2 06/21/19 14:00 97.8 99 20 100/55 (70) 95 Laboratory Data Labs 24H Laboratory Tests 2 06/20/19 16:35: Bedside Glucose (Misc Panel) 119H 06/20/19 19:29: Bedside Glucose (Misc Panel) 150H 06/21/19 06:42: Bedside Glucose (Misc Panel) 131H 06/21/19 06:48: Prothrombin Time 33.8H, Prothromb Time International Ratio 3.33 06/21/19 11:52: Bedside Glucose (Misc Panel) 100 Current Medications Current Medications Current Medications Medications (Trade) Dose Ordered Sig/Nelida Route PRN Reason Start Time Stop Time Status Last Admin Dose Admin Acetaminophen (Tylenol Tab) 650 mg Q4HP PRN PO fever/pain 06/15/19 11:30 06/17/19 02:46 Albuterol/ Ipratropium (Duoneb (Ipr 0.5mg/Alb 2.5mg)) 3 ml RTID NEB 06/15/19 20:00 06/21/19 13:16 Aspirin (Aspirin Chewable) 81 mg DAILY PO 06/16/19 09:00 06/21/19 08:21 Atorvastatin Calcium (Lipitor) 20 mg DAILY PO 06/16/19 09:00 06/21/19 08:21 Bisacodyl (Dulcolax Suppository) 10 mg DAILYPRN PRN [place] CONSTIPATION 06/15/19 11:30 Carvedilol (COReg) 3.125 mg Q12H PO 06/15/19 21:00 06/21/19 08:22 Dextrose (Dextrose 50%) 25 ml ASDIRECTED PRN IV SEE LABEL COMMENTS 06/15/19 11:30 Docusate Sodium (Colace) 100 mg BID PO 06/15/19 09:00 06/21/19 08:21 Donepezil HCl (AriCEPT) 10 mg DAILY PO 06/16/19 09:00 06/21/19 08:22 Fish Oil ([place]-3 (1000mg)) 1 cap DAILY PO 06/16/19 09:00 06/21/19 08:21 Fluoxetine HCl (PROzac) 20 mg QHS PO 06/15/19 21:00 06/20/19 20:14 Furosemide (Lasix) 40 mg DAILY PO 06/16/19 09:00 06/21/19 08:22 Glucagon (Glucagon) 1 mg ASDIRECTED PRN SC SEE LABEL COMMENTS 06/15/19 11:30 Glucose (Glucose) 16 GM ASDIRECTED PRN PO SEE LABEL COMMENTS 06/15/19 11:30 Insulin Human Lispro (HumaLOG INSULIN) SEE PROTOCOL TABLE AC SC 06/15/19 12:00 06/21/19 08:20 Insulin Human Lispro (HumaLOG INSULIN) SEE PROTOCOL TABLE QHS SC 06/15/19 21:00 Lidocaine (Lidoderm Patch) 1 patch DAILY TD 06/17/19 09:00 06/21/19 08:19 Lisinopril (Prinivil) 2.5 mg DAILY PO 06/16/19 09:00 06/21/19 08:21 Metformin HCl (Glucophage) 500 mg BID@18 PO 06/15/19 18:00 06/21/19 08:21 Non-Formulary Medication ( See Comment Field Below ) REMOVE LIDODERM PATCH DAILY@21 XX 06/17/19 21:00 06/20/19 20:14 Pantoprazole Sodium (Protonix) 40 mg DAILY PO 06/15/19 09:00 06/21/19 08:21 Senna (Senokot) 1 tab QHS PO 06/15/19 21:00 06/15/19 21:01 Tamsulosin HCl (Flomax) 0.4 mg DAILY PO 06/16/19 09:00 06/21/19 08:21 Vitamin D (Vitamin D) 1,000 units DAILY PO 06/16/19 09:00 06/21/19 08:21 Warfarin Sodium (Coumadin) 2 mg DAILY@17 PO 06/21/19 17:00 Warfarin Sodium (Coumadin) 3 mg DAILY@17 PO 06/16/19 17:00 06/21/19 10:11 DC 06/20/19 17:44 LAUREN WRAY MD Jun 21, 2019 16:03
[2019-06-21] MEDS ORDERED: WARFARIN SOD 2 MG TAB PO SCH (17:00)
[2019-06-21 19:56] VITALS: BP 124/71
[2019-06-21] MEDS: SENNA 8.6 MG TAB (SENOKOT) PO SCH (21:22)
[2019-06-21] MEDS: FLUoxetine 20 MG CAP PO SCH (21:22)
[2019-06-21] MEDS: **NOTE PATIENT COMMENT** MISC XX SCH (21:25)
[2019-06-22 05:33] VITALS: BP 125/66
[2019-06-22 06:52] LABS: INR 3.78; PROTHROMBIN TIME 37.3 SECONDS (11.8-14.0)
[2019-06-22] MEDS: IPRATROPIUM 0.5MG/ALBUTEROL 2.5MG INH SOL UD 3ML (DUONEB)(J7620) NEB SCH ×3 (07:30→20:37)
[2019-06-22] MEDS: LIDOCAINE 5% (LIDODERM) PATCH TD SCH (08:34)
[2019-06-22] MEDS: metFORMIN (GLUCOPHAGE) 500 MG TAB PO SCH ×2 (08:35→17:23)
[2019-06-22] MEDS: VITAMIN D 1,000 INTERNATIONAL UNITS TABLET PO SCH (08:35)
[2019-06-22] MEDS: OMEGA-3 1000MG CAPSULE PO SCH (08:35)
[2019-06-22] MEDS: FUROSEMIDE 40 MG TAB PO SCH (08:35)
[2019-06-22] MEDS: PANTOPRAZOLE 40MG TAB (PROTONIX) PO SCH (08:35)
[2019-06-22] MEDS: ATORVASTATIN 20 MG TAB PO SCH (08:35)
[2019-06-22] MEDS: DONEPEZIL 5 MG TAB PO SCH (08:35)
[2019-06-22] MEDS: DOCUSATE SODIUM 100 MG CAP PO SCH ×2 (08:35→21:30)
[2019-06-22] MEDS: ASPIRIN 81 MG CHEW TABLET PO SCH (08:35)
[2019-06-22] MEDS: TAMSULOSIN 0.4 MG CAP PO SCH (08:35)
[2019-06-22] MEDS: CARVedilol 3.125 MG TAB PO SCH ×2 (08:36→21:00)
[2019-06-22] MEDS: LISINOPRIL *2.5 MG* TAB PO SCH (08:36)
[2019-06-22] MEDS: HumaLOG INSULIN (NovoLOG) PER UNIT SC SCH ×4 (08:37→21:00)
[2019-06-22 14:00] VITALS: BP 117/69
--- NOTE | 2019-06-22 17:02 | IPNPDOC ---
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 he reprots in the past his doctor discussed Eliquis with him, but that he was concerned it would be too expensive. REVIEW OF SYSTEMS: The following is a completed review of systems and has been reviewed. Review of systems otherwise unremarkable. PAIN: Patient self reports no pain EYES: No recent vision changes EARS, NOSE, & THROAT: No throat pain, or dysphagia, or rhinorrhea CARDIOVASCULAR: Denies chest pain or palpitations PULMONARY: Denies shortness of breath, + dry cough GASTROINTESTINAL: Denies constipation/diarrhea GENITOURINARY: denies dysuria NEUROLOGICAL:LUE>LLE weakness HEMATOLOGICAL: no easy bruising SKIN: no rash PSYCHIATRIC: Unremarkable All other review of systems found to be negative. PHYSICAL EXAMINATION: VITAL SIGNS: Please see below. GENERAL: Pleasant and cooperative. No acute distress. HEENT: PERRL. Extraocular movements intact. Clear conjunctiva CARDIOVASCULAR: Irregular rate and rhythm. No murmurs, rubs, or gallops LUNGS: Clear to auscultation bilaterally. No wheezes. No rhonchi ABDOMEN: Soft, nontender, nondistended. Positive bowel sounds. Normal active bowel sounds NEUROLOGICAL: Alert and oriented times three. Cranial nerves II through XII grossly intact. Sensation to light touch diminished LUE, otherwise intact +mild LUE apraxia EXTREMITIES: 5\5 strength right upper extremities. 4-/5 left upper extremity, 4+/5 strength in left lower extremity, 5/5 strength RLE LUE mild swelling SKIN: intact ASSESSMENT: 73 -year-old M with past medical history of COPD, CHF, Afib, CVAs who presents status post acute onset LUE and LLE weakness clinically suspicious for CVA. PLAN: 1. rehab: PT- strengthen/stretch/maintain ROM bilat LE, dynamic balance training, fall recovery, advance assistive device prn- room privileges tonight OT- strengthen/stretch/maintain ROM bilat UE, work on improving coordination and fine motor strengthen in LUE as this is his dominant hand 2. Neuro: clinically suspected CVA with left sided hemiparesis (dominant side), CT negative, MRi unable to be obtained due to penile implant, will consider f/u CT scan once suspect infarct evolves -c/u secondary stroke prevention- Statin and ASA -will start PRozac for motor recovery 3. Cardio: pmh Afib on coumadin, monitor INR, holding Coumadin tonight for supra-therapteutic INR c/u beta-todd, CHF c/u lasix, medicine consulted to assist in management, patient reporting chronic cough, consider discontinuing lisinopril -f/u cardiology outpatient 4. Resp: pmh COPD, encourage incentive spirometry, Duoneb treatments ordered, will refer to pulmonology on d/c 5. Endo: DM continue insulin coverage and metformin, monitor FS 6. DVT ppx: on coumadin, teds 7. GI ppx: protonix 8. Pain: c/u cervical neck collar, c/u lidoderm patch 8. Dispo: pending therapeutic INR level to home Allergies Coded Allergies: Contrast Media (Verified Allergy, Severe, 06/12/19) Vital Signs Vital Signs Date Time Temp Pulse Resp B/P (MAP) Pulse Ox O2 Delivery O2 Flow Rate FiO2 06/22/19 14:00 98.3 81 18 117/69 (85) 96 Laboratory Data Labs 24H Laboratory Tests 2 06/21/19 19:28: Bedside Glucose (Misc Panel) 183H 06/22/19 06:14: Bedside Glucose (Misc Panel) 136H 06/22/19 06:23: Prothrombin Time 37.3H, Prothromb Time International Ratio 3.78 06/22/19 11:25: Bedside Glucose (Misc Panel) 108 06/22/19 16:50: Bedside Glucose (Misc Panel) 209H Current Medications Current Medications Current Medications Medications (Trade) Dose Ordered Sig/Nelida Route PRN Reason Start Time Stop Time Status Last Admin Dose Admin Acetaminophen (Tylenol Tab) 650 mg Q4HP PRN PO fever/pain 06/15/19 11:30 06/17/19 02:46 Albuterol/ Ipratropium (Duoneb (Ipr 0.5mg/Alb 2.5mg)) 3 ml RTID NEB 06/15/19 20:00 06/22/19 14:29 Aspirin (Aspirin Chewable) 81 mg DAILY PO 06/16/19 09:00 06/22/19 08:35 Atorvastatin Calcium (Lipitor) 20 mg DAILY PO 06/16/19 09:00 06/22/19 08:35 Bisacodyl (Dulcolax Suppository) 10 mg DAILYPRN PRN [place] CONSTIPATION 06/15/19 11:30 Carvedilol (COReg) 3.125 mg Q12H PO 06/15/19 21:00 06/22/19 08:36 Dextrose (Dextrose 50%) 25 ml ASDIRECTED PRN IV SEE LABEL COMMENTS 06/15/19 11:30 Docusate Sodium (Colace) 100 mg BID PO 06/15/19 09:00 06/22/19 08:35 Donepezil HCl (AriCEPT) 10 mg DAILY PO 06/16/19 09:00 06/22/19 08:35 Fish Oil ([place]-3 (1000mg)) 1 cap DAILY PO 06/16/19 09:00 06/22/19 08:35 Fluoxetine HCl (PROzac) 20 mg QHS PO 06/15/19 21:00 06/21/19 21:22 Furosemide (Lasix) 40 mg DAILY PO 06/16/19 09:00 06/22/19 08:35 Glucagon (Glucagon) 1 mg ASDIRECTED PRN SC SEE LABEL COMMENTS 06/15/19 11:30 Glucose (Glucose) 16 GM ASDIRECTED PRN PO SEE LABEL COMMENTS 06/15/19 11:30 Insulin Human Lispro (HumaLOG INSULIN) SEE PROTOCOL TABLE AC SC 06/15/19 12:00 06/22/19 12:49 Insulin Human Lispro (HumaLOG INSULIN) SEE PROTOCOL TABLE QHS SC 06/15/19 21:00 Lidocaine (Lidoderm Patch) 1 patch DAILY TD 06/17/19 09:00 06/22/19 08:34 Lisinopril (Prinivil) 2.5 mg DAILY PO 06/16/19 09:00 06/22/19 08:36 Metformin HCl (Glucophage) 500 mg BID@08,18 PO 06/15/19 18:00 06/22/19 08:35 Non-Formulary Medication ( See Comment Field Below ) REMOVE LIDODERM PATCH DAILY@21 XX 06/17/19 21:00 06/21/19 21:25 Pantoprazole Sodium (Protonix) 40 mg DAILY PO 06/15/19 09:00 06/22/19 08:35 Senna (Senokot) 1 tab QHS PO 06/15/19 21:00 06/21/19 21:22 Tamsulosin HCl (Flomax) 0.4 mg DAILY PO 06/16/19 09:00 06/22/19 08:35 Vitamin D (Vitamin D) 1,000 units DAILY PO 06/16/19 09:00 06/22/19 08:35 Warfarin Sodium (Coumadin) 2 mg DAILY@17 PO 06/21/19 17:00 06/22/19 11:27 DC 06/21/19 17:09 Warfarin Sodium (Coumadin) 3 mg DAILY@17 PO 06/16/19 17:00 06/21/19 10:11 DC 06/20/19 17:44 LAUREN WRAY MD Jun 22, 2019 17:02
[2019-06-22 20:00] VITALS: BP 106/58
[2019-06-22] MEDS: SENNA 8.6 MG TAB (SENOKOT) PO SCH (21:30)
[2019-06-22] MEDS: FLUoxetine 20 MG CAP PO SCH (21:30)
[2019-06-22] MEDS: **NOTE PATIENT COMMENT** MISC XX SCH (21:31)
[2019-06-23 06:27] LABS: INR 3.2; PROTHROMBIN TIME 32.7 SECONDS (11.8-14.0)
[2019-06-23] MEDS: IPRATROPIUM 0.5MG/ALBUTEROL 2.5MG INH SOL UD 3ML (DUONEB)(J7620) NEB SCH ×3 (07:43→19:36)
[2019-06-23] MEDS: DOCUSATE SODIUM 100 MG CAP PO SCH ×2 (09:00→22:28)
[2019-06-23] MEDS: LIDOCAINE 5% (LIDODERM) PATCH TD SCH (09:04)
[2019-06-23] MEDS: HumaLOG INSULIN (NovoLOG) PER UNIT SC SCH ×4 (09:07→22:28)
[2019-06-23] MEDS: OMEGA-3 1000MG CAPSULE PO SCH (09:08)
[2019-06-23] MEDS: TAMSULOSIN 0.4 MG CAP PO SCH (09:08)
[2019-06-23] MEDS: DONEPEZIL 5 MG TAB PO SCH (09:08)
[2019-06-23] MEDS: PANTOPRAZOLE 40MG TAB (PROTONIX) PO SCH (09:08)
[2019-06-23] MEDS: ATORVASTATIN 20 MG TAB PO SCH (09:09)
[2019-06-23] MEDS: VITAMIN D 1,000 INTERNATIONAL UNITS TABLET PO SCH (09:09)
[2019-06-23] MEDS: CARVedilol 3.125 MG TAB PO SCH ×2 (09:09→22:29)
[2019-06-23] MEDS: metFORMIN (GLUCOPHAGE) 500 MG TAB PO SCH ×2 (09:09→17:47)
[2019-06-23] MEDS: FUROSEMIDE 40 MG TAB PO SCH (09:09)
[2019-06-23] MEDS: LISINOPRIL *2.5 MG* TAB PO SCH (09:10)
[2019-06-23] MEDS: ASPIRIN 81 MG CHEW TABLET PO SCH (09:10)
[2019-06-23 14:00] VITALS: BP 116/58
[2019-06-23] MEDS ORDERED: TAMS1CAP17 PO (15:44)
[2019-06-23] MEDS ORDERED: METF-791 PO (15:44)
[2019-06-23] MEDS ORDERED: FURO40TA2 PO (15:44)
[2019-06-23] MEDS ORDERED: CARV6.25 PO (15:44)
[2019-06-23] MEDS ORDERED: LISI-1046 PO (15:44)
[2019-06-23] MEDS ORDERED: ATOR1TAB21 PO (15:44)
[2019-06-23] MEDS ORDERED: ECOT81TA5 PO (15:44)
[2019-06-23] MEDS ORDERED: FLUO20CA19 PO (15:44)
[2019-06-23] MEDS ORDERED: DONE10TA90 PO (15:44)
[2019-06-23] MEDS ORDERED: WARF4TAB51 PO (15:44)
--- NOTE | 2019-06-23 16:43 | IPNPDOC ---
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 he reprots in the past his doctor discussed Eliquis with him, but that he was concerned it would be too expensive. REVIEW OF SYSTEMS: The following is a completed review of systems and has been reviewed. Review of systems otherwise unremarkable. PAIN: Patient self reports no pain EYES: No recent vision changes EARS, NOSE, & THROAT: No throat pain, or dysphagia, or rhinorrhea CARDIOVASCULAR: Denies chest pain or palpitations PULMONARY: Denies shortness of breath, + dry cough GASTROINTESTINAL: Denies constipation/diarrhea GENITOURINARY: denies dysuria NEUROLOGICAL:LUE>LLE weakness HEMATOLOGICAL: no easy bruising SKIN: no rash PSYCHIATRIC: Unremarkable All other review of systems found to be negative. PHYSICAL EXAMINATION: VITAL SIGNS: Please see below. GENERAL: Pleasant and cooperative. No acute distress. HEENT: PERRL. Extraocular movements intact. Clear conjunctiva CARDIOVASCULAR: Irregular rate and rhythm. No murmurs, rubs, or gallops LUNGS: Clear to auscultation bilaterally. No wheezes. No rhonchi ABDOMEN: Soft, nontender, nondistended. Positive bowel sounds. Normal active bowel sounds NEUROLOGICAL: Alert and oriented times three. Cranial nerves II through XII grossly intact. Sensation to light touch diminished LUE, otherwise intact +mild LUE apraxia EXTREMITIES: 5\5 strength right upper extremities. 4-/5 left upper extremity, 4+/5 strength in left lower extremity, 5/5 strength RLE LUE mild swelling SKIN: intact ASSESSMENT: 73 -year-old M with past medical history of COPD, CHF, Afib, CVAs who presents status post acute onset LUE and LLE weakness clinically suspicious for CVA. PLAN: 1. rehab: PT- strengthen/stretch/maintain ROM bilat LE, dynamic balance training, fall recovery, advance assistive device prn- room privileges tonight OT- strengthen/stretch/maintain ROM bilat UE, work on improving coordination and fine motor strengthen in LUE as this is his dominant hand 2. Neuro: clinically suspected CVA with left sided hemiparesis (dominant side), CT negative, MRi unable to be obtained due to penile implant, will consider f/u CT scan once suspect infarct evolves -c/u secondary stroke prevention- Statin and ASA -will start PRozac for motor recovery 3. Cardio: pmh Afib on coumadin, monitor INR, holding Coumadin again tonight for supra-therapteutic INR c/u beta-todd, CHF c/u lasix, medicine consulted to assist in management, patient reporting chronic cough, consider discontinuing lisinopril -patient refusing to f/u with his online marketing coordinator for INR management, he agreed to go to the resident's clinic and to have visiting nurses come into the home to monitor his INR at least for the first month -called his pharmacy to find out if alternative to Coumadin would work given his hx of being chronically supratherapeutic however his Co-pay for XArelto or Eliquis would be over $400 which patient is unable to afford 4. Resp: pmh COPD, encourage incentive spirometry, Duoneb treatments ordered, will refer to pulmonology on d/c 5. Endo: DM continue insulin coverage and metformin, monitor FS 6. DVT ppx: on coumadin, teds 7. GI ppx: protonix 8. Pain: c/u cervical neck collar, c/u lidoderm patch 8. Dispo: pending therapeutic INR level to home Allergies Coded Allergies: Contrast Media (Verified Allergy, Severe, 06/12/19) Vital Signs Vital Signs Date Time Temp Pulse Resp B/P (MAP) Pulse Ox O2 Delivery O2 Flow Rate FiO2 06/23/19 14:00 97.9 92 18 116/58 (77) 95 Laboratory Data Labs 24H Laboratory Tests 2 06/22/19 16:50: Bedside Glucose (Misc Panel) 209H 06/22/19 20:15: Bedside Glucose (Misc Panel) 122H 06/23/19 06:01: Prothrombin Time 32.7H, Prothromb Time International Ratio 3.20 06/23/19 06:24: Bedside Glucose (Misc Panel) 128H 06/23/19 11:51: Bedside Glucose (Misc Panel) 91 Current Medications Current Medications Current Medications Medications (Trade) Dose Ordered Sig/Nelida Route PRN Reason Start Time Stop Time Status Last Admin Dose Admin Acetaminophen (Tylenol Tab) 650 mg Q4HP PRN PO fever/pain 06/15/19 11:30 06/17/19 02:46 Albuterol/ Ipratropium (Duoneb (Ipr 0.5mg/Alb 2.5mg)) 3 ml RTID NEB 06/15/19 20:00 06/23/19 07:43 Aspirin (Aspirin Chewable) 81 mg DAILY PO 06/16/19 09:00 06/23/19 09:10 Atorvastatin Calcium (Lipitor) 20 mg DAILY PO 06/16/19 09:00 06/23/19 09:09 Bisacodyl (Dulcolax Suppository) 10 mg DAILYPRN PRN [place] CONSTIPATION 06/15/19 11:30 Carvedilol (COReg) 3.125 mg Q12H PO 06/15/19 21:00 06/23/19 09:09 Dextrose (Dextrose 50%) 25 ml ASDIRECTED PRN IV SEE LABEL COMMENTS 06/15/19 11:30 Docusate Sodium (Colace) 100 mg BID PO 06/15/19 09:00 06/22/19 21:30 Donepezil HCl (AriCEPT) 10 mg DAILY PO 06/16/19 09:00 06/23/19 09:08 Fish Oil ([place]-3 (1000mg)) 1 cap DAILY PO 06/16/19 09:00 06/23/19 09:08 Fluoxetine HCl (PROzac) 20 mg QHS PO 06/15/19 21:00 06/22/19 21:30 Furosemide (Lasix) 40 mg DAILY PO 06/16/19 09:00 06/23/19 09:09 Glucagon (Glucagon) 1 mg ASDIRECTED PRN SC SEE LABEL COMMENTS 06/15/19 11:30 Glucose (Glucose) 16 GM ASDIRECTED PRN PO SEE LABEL COMMENTS 06/15/19 11:30 Insulin Human Lispro (HumaLOG INSULIN) SEE PROTOCOL TABLE AC SC 06/15/19 12:00 06/23/19 09:07 Insulin Human Lispro (HumaLOG INSULIN) SEE PROTOCOL TABLE QHS SC 06/15/19 21:00 Lidocaine (Lidoderm Patch) 1 patch DAILY TD 06/17/19 09:00 06/23/19 09:04 Lisinopril (Prinivil) 2.5 mg DAILY PO 06/16/19 09:00 06/23/19 09:10 Metformin HCl (Glucophage) 500 mg BID@ PO 06/15/19 18:00 06/23/19 09:09 Non-Formulary Medication ( See Comment Field Below ) REMOVE LIDODERM PATCH DAILY@21 XX 06/17/19 21:00 06/22/19 21:31 Pantoprazole Sodium (Protonix) 40 mg DAILY PO 06/15/19 09:00 06/23/19 09:08 Senna (Senokot) 1 tab QHS PO 06/15/19 21:00 06/22/19 21:30 Tamsulosin HCl (Flomax) 0.4 mg DAILY PO 06/16/19 09:00 06/23/19 09:08 Vitamin D (Vitamin D) 1,000 units DAILY PO 06/16/19 09:00 06/23/19 09:09 Warfarin Sodium (Coumadin) 2 mg DAILY@17 PO 06/21/19 17:00 06/22/19 11:27 DC 06/21/19 17:09 Warfarin Sodium (Coumadin) 3 mg DAILY@17 PO 06/16/19 17:00 06/21/19 10:11 DC 06/20/19 17:44 LAUREN WRAY MD Jun 23, 2019 16:43
[2019-06-23 20:00] VITALS: BP 93/57
[2019-06-23] MEDS: FLUoxetine 20 MG CAP PO SCH (22:27)
[2019-06-23] MEDS: **NOTE PATIENT COMMENT** MISC XX SCH (22:28)
[2019-06-23] MEDS: SENNA 8.6 MG TAB (SENOKOT) PO SCH (22:28)
[2019-06-24 04:00] VITALS: BP 132/75
[2019-06-24 07:27] LABS: INR 2.3; PROTHROMBIN TIME 25.1 SECONDS (11.8-14.0)
[2019-06-24] MEDS: IPRATROPIUM 0.5MG/ALBUTEROL 2.5MG INH SOL UD 3ML (DUONEB)(J7620) NEB SCH (07:38)
[2019-06-24 09:38] LABS: BASO # 0.1 10^3/uL (0.0-0.2); BASO % 0.8 % (0.0-1.0); EOS # 0.2 10^3/uL (0.0-0.5); EOS % 1.8 % (0.0-3.0); HEMATOCRIT 40.7 % (42.0-52.0); LYMPH # 1.8 10^3/uL (1.5-5.0); LYMPH % 19.9 % (24.0-44.0); MEAN CORPUSCULAR HEMOGLOBIN 28.6 pg (27.0-33.0); MEAN CORPUSCULAR HGB CONC 31.9 g/dl (32.0-36.5); MEAN CORPUSCULAR VOLUME 89.6 fl (80.0-96.0); MONO # 0.8 10^3/uL (0.0-0.8); MONO % 8.5 % (0.0-5.0); NEUTROPHILS # 6.4 10^3/uL (1.5-8.5); NEUTROPHILS % 68.7 % (36.0-66.0); PLATELET COUNT, AUTOMATED 222 10^3/uL (150-450); RED BLOOD COUNT 4.54 10^6/uL (4.30-6.10); WHITE BLOOD COUNT 9.3 10^3/uL (4.0-10.0)
[2019-06-24 09:56] VITALS: BP 132/75
[2019-06-24] MEDS: LISINOPRIL *2.5 MG* TAB PO SCH (09:56)
[2019-06-24] MEDS: CARVedilol 3.125 MG TAB PO SCH (09:56)
[2019-06-24] MEDS: DOCUSATE SODIUM 100 MG CAP PO SCH (09:56)
[2019-06-24] MEDS: PANTOPRAZOLE 40MG TAB (PROTONIX) PO SCH (09:56)
[2019-06-24] MEDS: OMEGA-3 1000MG CAPSULE PO SCH (09:56)
[2019-06-24] MEDS: ASPIRIN 81 MG CHEW TABLET PO SCH (09:56)
[2019-06-24] MEDS: VITAMIN D 1,000 INTERNATIONAL UNITS TABLET PO SCH (09:57)
[2019-06-24] MEDS: ATORVASTATIN 20 MG TAB PO SCH (09:57)
[2019-06-24] MEDS: FUROSEMIDE 40 MG TAB PO SCH (09:57)
[2019-06-24] MEDS: DONEPEZIL 5 MG TAB PO SCH (09:57)
[2019-06-24] MEDS: metFORMIN (GLUCOPHAGE) 500 MG TAB PO SCH (09:57)
[2019-06-24] MEDS: TAMSULOSIN 0.4 MG CAP PO SCH (09:58)
[2019-06-24] MEDS: LIDOCAINE 5% (LIDODERM) PATCH TD SCH (09:59)
[2019-06-24] MEDS: HumaLOG INSULIN (NovoLOG) PER UNIT SC SCH (09:59)
[2019-06-24 10:02] LABS: BLOOD UREA NITROGEN 26 MG/DL (7-18); CALCIUM LEVEL 9.2 MG/DL (8.8-10.2); CARBON DIOXIDE LEVEL 27 MEQ/L (21-32); CHLORIDE LEVEL 107 MEQ/L (98-107); CREATININE FOR GFR 0.79 MG/DL (0.70-1.30); GLOMERULAR FILTRATION RATE > 60.0 (>42); GLUCOSE, FASTING 122 MG/DL (70-100); POTASSIUM SERUM 4.2 MEQ/L (3.5-5.1); SODIUM LEVEL 141 MEQ/L (136-145)
== END 2019-06-24 12:10 | disposition home health service (06) | DRG 57 ==
LOC: M PM&R 11:00
PROVIDERS: ADMIT Physical Medicine & Rehabilitation; ATTEND Physical Medicine & Rehabilitation
DX: I69.354 Hemiplegia and hemiparesis following cerebral infarction affecting left non-dominant side (principal); I50.22 Chronic systolic (congestive) heart failure; I48.2 Chronic atrial fibrillation; I25.10 Atherosclerotic heart disease of native coronary artery without angina pectoris; J44.9 Chronic obstructive pulmonary disease, unspecified; E78.5 Hyperlipidemia, unspecified; E11.9 Type 2 diabetes mellitus without complications; Z79.01 Long term (current) use of anticoagulants; Z87.891 Personal history of nicotine dependence; Z79.82 Long term (current) use of aspirin; Z79.84 Long term (current) use of oral hypoglycemic drugs; Z79.899 Other long term (current) drug therapy; Z91.041 Radiographic dye allergy status

== ENCOUNTER → 2019-06-26 | Outpatient (REF) | payer MEDICARE ==
[~2019-06-26] MED LIST changes: +FLUO20CA19 PO; +SENN-53 PO; -SENN1TAB40 PO
[2019-06-26 16:55] LABS: INR 1.79; PROTHROMBIN TIME 20.5 SECONDS (11.8-14.0)
== END ==
LOC: M SHH 10:08
PROVIDERS: ATTEND Physical Medicine & Rehabilitation
DX: Z51.81 Encounter for therapeutic drug level monitoring (principal)

== ENCOUNTER → 2019-06-29 | Outpatient (REF) | payer MEDICARE ==
[~2019-06-29] MED LIST changes: -SENN-53 PO; +SENN1TAB40 PO
[2019-06-29 15:01] LABS: INR 1.29; PROTHROMBIN TIME 15.8 SECONDS (11.8-14.0)
== END ==
LOC: M SHH 13:44
PROVIDERS: ATTEND Physical Medicine & Rehabilitation
DX: I69.354 Hemiplegia and hemiparesis following cerebral infarction affecting left non-dominant side (principal); Z79.01 Long term (current) use of anticoagulants

== ENCOUNTER → 2019-07-05 | Outpatient (REF) | payer MEDICARE ==
[~2019-07-05] MED LIST changes: +SENN-53 PO; -SENN1TAB40 PO
[2019-07-05 14:24] LABS: INR 2.16; PROTHROMBIN TIME 23.9 SECONDS (11.8-14.0)
== END ==
LOC: M SHH 13:49
PROVIDERS: ATTEND Physician Assistant Medical
DX: Z79.01 Long term (current) use of anticoagulants (principal)

== ENCOUNTER → 2019-07-12 | Outpatient (REF) | payer MEDICARE ==
[2019-07-12 16:35] LABS: INR 1.73
== END ==
LOC: M SHH 15:37
PROVIDERS: ATTEND Physician Assistant Medical
DX: Z79.01 Long term (current) use of anticoagulants (principal)

== ENCOUNTER → 2019-07-20 | Outpatient (REF) | payer MEDICARE ==
[~2019-07-20] MED LIST changes: -SENN-53 PO; +SENN1TAB40 PO
[2019-07-20 13:56] LABS: PROTHROMBIN TIME 55.5 SECONDS (11.8-14.0)
[2019-07-20 14:46] LABS: INR 6.2
== END ==
LOC: M SHH 12:20
PROVIDERS: ATTEND Physical Medicine & Rehabilitation
DX: Z79.01 Long term (current) use of anticoagulants (principal)

== ENCOUNTER → 2019-07-23 | Outpatient (REF) | payer MEDICARE ==
[~2019-07-23] MED LIST changes: +SENN-53 PO; -SENN1TAB40 PO
[2019-07-23 16:44] LABS: INR 4.29; PROTHROMBIN TIME 41.4 SECONDS (11.8-14.0)
== END ==
LOC: M LAB REF 15:56 → M SHH 15:56
PROVIDERS: ATTEND Physical Medicine & Rehabilitation
DX: Z79.01 Long term (current) use of anticoagulants (principal)

== ENCOUNTER → 2019-07-25 | Outpatient (REF) | payer MEDICARE ==
[2019-07-25 13:55] LABS: INR 2.42; PROTHROMBIN TIME 26.1 SECONDS (11.8-14.0)
== END ==
LOC: M SHH 13:37
PROVIDERS: ATTEND Physician Assistant Medical
DX: Z79.01 Long term (current) use of anticoagulants (principal)

== ENCOUNTER → 2019-07-29 | Outpatient (REF) | payer MEDICARE ==
[2019-07-29 17:24] LABS: INR 4.15; PROTHROMBIN TIME 40.3 SECONDS (11.8-14.0)
== END ==
LOC: M SHH 16:16
PROVIDERS: ATTEND Physician Assistant Medical
DX: Z79.01 Long term (current) use of anticoagulants (principal)

== ENCOUNTER → 2019-08-02 | Outpatient (REF) | payer MEDICARE ==
[2019-08-02 14:09] LABS: INR 3.95; PROTHROMBIN TIME 38.7 SECONDS (11.8-14.0)
== END ==
LOC: M SHH 13:27
PROVIDERS: ATTEND Physical Medicine & Rehabilitation
DX: Z79.01 Long term (current) use of anticoagulants (principal)

== ENCOUNTER → 2019-08-12 | Outpatient (CLI) | payer MEDICARE ==
--- NOTE | 2019-08-12 11:32 | REP ---
Left wrist four views: There are no comparisons. There is marked joint space narrowing of the scaphoid radius joint with cortical eburnation and subcortical cysts compatible with focal osteoarthritis. Additionally, there is a large subcortical cyst in the distal radius centrally. There is an accessory ossicle postero lateral to the scaphoid. There is demineralization. No fracture or dislocation. Impression: Marked scaphoid radius joint osteoarthritis. Electronically Signed by To Lawrence MD 08/12/2019 11:25 A
== END ==
LOC: M RAD 10:03
PROVIDERS: ATTEND Physician Assistant Medical
DX: S63.502A Unspecified sprain of left wrist, initial encounter (principal); X58.XXXA Exposure to other specified factors, initial encounter; Y92.9 Unspecified place or not applicable; M19.032 Primary osteoarthritis, left wrist

== ENCOUNTER → 2019-09-27 | Outpatient (CLI) | payer MEDICARE ==
--- NOTE | 2019-09-27 13:27 | REP ---
CAROTID ULTRASOUND: Real-time ultrasound evaluation and duplex Doppler interrogation of the extracranial carotid vasculature is performed. There is mild plaquing and narrowing in both carotid bulbs extending into the internal and external carotid arteries. Luminal narrowing is less than 50%. There is no evidence of hemodynamically significant stenosis of either internal carotid artery. Normal flow velocities are seen. The vertebral arteries demonstrate normal direction of flow. RIGHT LEFT Peak systolic velocity ICA 73.3 cm/s 58 cm/s End diastolic velocity ICA 19.9 cm/s 20.6 cm/s Peak systolic velocity CCA 60.1 cm/s 62.3 cm/s Peak systolic velocity ECA 70.2 cm/s 67.0 cm/s ICA/CCA ratio 1.2 0.93 IMPRESSION: Bilateral luminal narrowing of the internal carotid arteries less than 50%. No evidence of hemodynamically significant stenosis. Electronically Signed by To Garcia MD 09/27/2019 01:19 P
--- NOTE | 2019-09-27 14:02 | REPVR ---
PROCEDURE INFORMATION: Exam: CT Head Without Contrast Exam date and time: 09/27/2019 1:21 PM Age: 74 years old Clinical indication: Condition or disease; Other: Infarct; Additional info: Cerebral infarction/ cervicalgia, US first, CT second TECHNIQUE: Imaging protocol: Computed tomography of the head without contrast. Radiation optimization: All CT scans at this facility use at least one of these dose optimization techniques: automated exposure control; mA and/or kV adjustment per patient size (includes targeted exams where dose is matched to clinical indication); or iterative reconstruction. COMPARISON: CT Head without contrast 06/12/2019 3:37 PM FINDINGS: Brain: There is no acute intracranial hemorrhage or mass effect. Mild diffuse volume loss is within the range of normal for patient age. There are small vessel ischemic changes within the periventricular and subcortical white matter, but the normal durant/white matter delineation is maintained. Ventricles: Normal. No ventriculomegaly. Bones/joints: Unremarkable. No acute fracture. Sinuses: Visualized sinuses are unremarkable. No fluid levels. Mastoid air cells: Visualized mastoid air cells are well aerated. Soft tissues: Unremarkable. IMPRESSION: No acute hemorrhage or edema. Electronically signed by: Leslie Shaffer On 09/27/2019 14:02:15 PM
--- NOTE | 2019-09-27 14:07 | REPVR ---
PROCEDURE INFORMATION: Exam: CT Cervical Spine Without Contrast Exam date and time: 09/27/2019 1:21 PM Age: 74 years old Clinical indication: Pain; Cervicalgia; Additional info: Cerebral infarction/ cervicalgia, US first, CT second TECHNIQUE: Imaging protocol: Computed tomography images of the cervical spine without contrast. Radiation optimization: All CT scans at this facility use at least one of these dose optimization techniques: automated exposure control; mA and/or kV adjustment per patient size (includes targeted exams where dose is matched to clinical indication); or iterative reconstruction. COMPARISON: CT Spine,cervical w/o contrast 06/08/2019 12:29 PM FINDINGS: Vertebrae: There is mild reversal of the normal cervical lordosis. There is 2 mm of grade 1 retrolisthesis of C3 with respect to C4, C4 with respect to C5 and C5 with respect to C6. Discs/Spinal canal/Neural foramina: There is severe intervertebral disc space loss at C3/4, C4/5, C5/6 and C6/7. There is multilevel facet hypertrophy. At C3/4, disc osteophyte complex/uncovering related to listhesis and moderate facet hypertrophy contribute to severe right and moderate left neural foraminal narrowing. At C4/5, diffuse disc osteophyte complex and moderate facet hypertrophy contribute to severe right and moderate to severe left neural foraminal narrowing. At C5/6, diffuse disc osteophyte complex and moderate facet hypertrophy contribute to severe bilateral neural foraminal narrowing and moderate canal stenosis. At C6/7, diffuse disc osteophyte complex and mild facet hypertrophy contribute to moderate left neural foraminal narrowing. Soft tissues: Unremarkable. Lungs: Lung apices are normal. IMPRESSION: No acute fracture. Chronic changes. Electronically signed by: Leslie Shaffer On 09/27/2019 14:07:13 PM
== END ==
LOC: M RAD 11:59
PROVIDERS: ATTEND Psychiatry & Neurology Neurology
DX: I63.9 Cerebral infarction, unspecified (principal); M47.12 Other spondylosis with myelopathy, cervical region; R20.2 Paresthesia of skin; M54.2 Cervicalgia; I65.23 Occlusion and stenosis of bilateral carotid arteries

== ENCOUNTER → 2020-04-10 | Outpatient (REF) | payer MEDICARE ==
[~2020-04-10] MED LIST changes: -ASPI81TA85 PO; +ASPI81TA86 PO; -FLUO20CA19 PO; +FLUO20CA22 PO; -LISI-1046 PO; +LISI2.5T2 PO; -METF-791 PO; +METF-838 PO; +PANT40TA29 PO; -PANT40TA3 PO
[2020-04-10 15:10] LABS: INR 2.2; PROTHROMBIN TIME 24.2 SECONDS (11.8-14.0)
== END ==
LOC: M LAB REF 14:25
PROVIDERS: ATTEND Physician Assistant Medical
DX: I48.91 Unspecified atrial fibrillation (principal)

== ENCOUNTER → 2020-05-25 | Outpatient (REF) | payer MEDICARE ==
[2020-05-25 17:49] LABS: PERCENT SATURATION 9.3 % (19.7-50.0)
[2020-05-25 17:53] LABS: INR 4.61; PROTHROMBIN TIME 44.6 SECONDS (11.8-14.0)
== END ==
LOC: M LAB REF 16:37
PROVIDERS: ATTEND Internal Medicine
DX: D50.9 Iron deficiency anemia, unspecified (principal); R19.4 Change in bowel habit

== ENCOUNTER → 2020-09-08 | Outpatient (CLI) | payer MEDICARE ==
[2020-09-08 09:09] LABS: HEMATOCRIT 39.8 % (42.0-52.0); HEMOGLOBIN 11.8 g/dl (13.5-17.5); MEAN CORPUSCULAR HEMOGLOBIN 25.4 pg (27.0-33.0); MEAN CORPUSCULAR HGB CONC 29.6 g/dl (32.0-36.5); MEAN CORPUSCULAR VOLUME 85.6 fl (80.0-96.0); PLATELET COUNT, AUTOMATED 230 10^3/uL (150-450); RED BLOOD COUNT 4.65 10^6/uL (4.30-6.10); WHITE BLOOD COUNT 7.7 10^3/uL (4.0-10.0)
[2020-09-08 09:40] LABS: ALBUMIN 3.4 GM/DL (3.2-5.2); ALT/SGPT 15 U/L (12-78); BILIRUBIN,TOTAL 0.8 MG/DL (0.2-1.0); BLOOD UREA NITROGEN 35 MG/DL (7-18); CALCIUM LEVEL 8.7 MG/DL (8.8-10.2); CARBON DIOXIDE LEVEL 29 MEQ/L (21-32); CHLORIDE LEVEL 105 MEQ/L (98-107); CHOLESTEROL LEVEL 107 MG/DL (<200); CHOLESTEROL RISK RATIO 1.981 (<5); CREATININE FOR GFR 1.02 MG/DL (0.70-1.30); GLOMERULAR FILTRATION RATE > 60.0 (>42); GLUCOSE, FASTING 108 MG/DL (70-100); HDL CHOLESTEROL 54 MG/DL (>40); LDL CHOLESTEROL 42 MG/DL (<100); NON-HDL-C 53 MG/DL; POTASSIUM SERUM 4.7 MEQ/L (3.5-5.1); PROSTATIC SPECIFIC AG MONITOR 0.69 NG/ML (< 4.00); SODIUM LEVEL 138 MEQ/L (136-145); TOTAL PROTEIN 6.7 GM/DL (6.4-8.2); TRIGLYCERIDES LEVEL 54 MG/DL (<150)
--- NOTE | 2020-09-08 09:40 | ECGEPIP ---
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
--- NOTE | 2020-09-08 09:44 | REP ---
INDICATION: HTN/FATIGUE / LABS . COMPARISON: 12/09/2017 FINDINGS: There is cardiomegaly status quo. Since the last exam a prosthetic aortic valve has been placed. Patchy opacities in the right lower lobe have developed with right CP angle blunting. There is no change in the osseous structures. IMPRESSION: 1. Cardiomegaly 2. New right lower lobe patchy opacity with CP angle blunting suggestive of developing pneumonia and a small right pleural effusion. This needs to be correlated clinically with appropriate follow-up. <Electronically signed by Po Ramesh > 09/08/20 0921
[2020-09-08 10:55] LABS: HEMOGLOBIN A1c 6.9 %
== END ==
LOC: M LAB 08:15
PROVIDERS: ATTEND Family Medicine
DX: R53.83 Other fatigue (principal); I10 Essential (primary) hypertension; E11.9 Type 2 diabetes mellitus without complications

== ENCOUNTER 2020-09-15 11:12 | Emergency (ER) | payer MEDICARE ==
[~2020-09-15] VITALS: Ht 160 cm; Wt 84.3 kg
[2020-09-15 11:12] VITALS: BP 91/61
== END 2020-09-15 12:20 | disposition left against medical advice (07) ==
LOC: M ED 11:12
DX: Z53.9 Procedure and treatment not carried out, unspecified reason (principal); Z71.1 Person with feared health complaint in whom no diagnosis is made; I48.91 Unspecified atrial fibrillation; I25.10 Atherosclerotic heart disease of native coronary artery without angina pectoris; I50.9 Heart failure, unspecified; E11.9 Type 2 diabetes mellitus without complications; J44.9 Chronic obstructive pulmonary disease, unspecified; Z86.73 Personal history of transient ischemic attack (TIA), and cerebral infarction without residual deficits; Z87.891 Personal history of nicotine dependence; Z79.82 Long term (current) use of aspirin; Z79.84 Long term (current) use of oral hypoglycemic drugs; Z79.01 Long term (current) use of anticoagulants; Z79.899 Other long term (current) drug therapy; Z91.041 Radiographic dye allergy status

== ENCOUNTER → 2020-10-30 | Outpatient (CLI) | payer MEDICARE ==
--- NOTE | 2020-10-30 16:16 | REP ---
INDICATION: COPD. COMPARISON: 09/08/2020 TECHNIQUE: PA and lateral FINDINGS: There is cardiomegaly which appears stable. The patchy opacities seen previously in the right lower lobe with right CP angle blunting appears unchanged. A subtle but new right upper lobe opacity may be developing. There is no significant change in appearance of the osseous structures. IMPRESSION: 1. Stable appearing cardiomegaly. 2. Persistent right lower lobe opacity with right CP angle blunting. 3. Subtle but new potential right upper lobe opacity. 4. Consider chest CT. <Electronically signed by Po Ramesh > 10/30/20 1559
== END ==
LOC: M RAD 15:07
PROVIDERS: ATTEND Family Medicine
DX: J44.9 Chronic obstructive pulmonary disease, unspecified (principal)

== ENCOUNTER → 2020-11-30 | Outpatient (CLI) | payer MEDICARE ==
--- NOTE | 2020-11-30 08:48 | REP ---
INDICATION: RT LOWER LOBE LUNG NODULE. COMPARISON: Comparison chest x-ray 30 October [address] Comparison chest [address] study 18 August 2016.. TECHNIQUE: Helical scanning is acquired. 3 mm axial images are generated. Coronal and sagittal MPR and coronal MIP images are generated. FINDINGS: Four-chamber cardiomegaly is again observed. There is a left atrial appendage clamp and a mitral valve prosthesis is seen. There is no evidence of pericardial effusion. There is a thin sliver of right pleural fluid. There is multifocal pleuroparenchymal scarring in the right lower lobe and right middle lobe. No pulmonary mass or new infiltrate is noted on the right. There is a granulomatous calcification in the left upper lobe. There is no evidence of hilar or mediastinal mass or adenopathy. Some vascular calcification is observed. Normal adrenal glands are seen. Cholelithiasis is noted. There is a small cyst in the upper pole of the left kidney partially included in the field of view. The visualized upper abdominal structures are otherwise unremarkable. IMPRESSION: Cardiomegaly status post mitral valve replacement and atrial appendage clipping. Pleuroparenchymal fibrosis right base. Otherwise no acute disease. <Electronically signed by Tony Terrell > 11/30/20 [id number]
== END ==
LOC: M RAD 07:49
PROVIDERS: ATTEND Family Medicine
DX: R91.1 Solitary pulmonary nodule (principal); J84.10 Pulmonary fibrosis, unspecified; I51.7 Cardiomegaly; Z95.1 Presence of aortocoronary bypass graft

== ENCOUNTER → 2021-02-27 | Outpatient (CLI) | payer MEDICARE ==
--- NOTE | 2021-02-27 13:33 | REPVR ---
PROCEDURE INFORMATION: Exam: CT Chest Without Contrast; Diagnostic Exam date and time: 02/27/2021 12:50 PM Age: 75 years old Clinical indication: Dyspnea; Additional info: Dyspena TECHNIQUE: Imaging protocol: Diagnostic computed tomography of the chest without contrast. 3D rendering (Not supervised by radiologist): MIP and/or 3D reconstructed images were created by the technologist. Radiation optimization: All CT scans at this facility use at least one of these dose optimization techniques: automated exposure control; mA and/or kV adjustment per patient size (includes targeted exams where dose is matched to clinical indication); or iterative reconstruction. COMPARISON: CT Chest without contrast 11/30/2020 8:06 AM FINDINGS: Thyroid: Thyroid calcifications are stable. Lungs: The left lung is clear except for an upper lobe granulomata which is stable. Pleural spaces: Unremarkable. No pneumothorax. No pleural effusion. Heart: Postoperative changes noted in the heart. There is are mitral valve replacement as well. There is cardiomegaly. Aorta: Unremarkable. No aortic aneurysm. Lymph nodes: Unremarkable. No enlarged lymph nodes. Kidneys and ureters: Incompletely seen right renal cyst appears stable. Stomach and bowel: Pleuroparenchymal thickening and scarring is noted in the right base. Has this patient had prior surgery? Bones/joints: Severe degenerative disc disease again identified in the lumbar spine on the more inferior aspect of the study. Soft tissues: Unremarkable. Other findings: Extensive vascular calcifications. IMPRESSION: Right base in lower lobe abnormality questionably post operative or traumatic. This needs clinical correlation as the only history I have is "dyspnea". This is however, stable since the previous examination. Electronically signed by: Ariel Olivia On 02/27/2021 13:33:15 PM
== END ==
LOC: M RAD 12:32
PROVIDERS: ATTEND Physician Assistant
DX: R06.00 Dyspnea, unspecified (principal); I51.7 Cardiomegaly; Z95.2 Presence of prosthetic heart valve; J84.10 Pulmonary fibrosis, unspecified; N28.1 Cyst of kidney, acquired; M51.36 Other intervertebral disc degeneration, lumbar region

== ENCOUNTER 2021-07-21 10:37 | Emergency (ER) | payer MEDICARE ==
[2021-07-21 10:37] VITALS: BP 153/79
[~2021-07-21 10:37] MED LIST changes: -LISI2.5T2 PO; +LISI2.5T9 PO
--- OUTSIDE RECORDS SUMMARY | 2021-07-21 10:43 | CCD | Continuity of Care Document ---
Author Author Tan MEJIA [facility] Organization Unknown Address [address] [place] [address] Phone [phone] Problems Description No Information Available Social History Type Date Description Comments Sex Unknown Tobacco Use Start: Unknown End: Unknown Former Smoke less Tobacco User, Used Occasionally less than a week ETOH Use Occasionally consumed alcohol in the past Tobacco Use Start: Unknown Patient has never smoked Recreational Drug Use Denies Drug Use Smoking Status Reviewed: 04/30/21 Patient has never smoked Exercise Type/Frequency Does not exercise Tattoo/Piercing Tattoo Seat Belt/Car Seat Always uses seat belt Smoke Alarms Yes Smoke Alarms Carbon Monoxide Detector: No Allergies, Adverse Reactions, Alerts Description No Known Drug Allergies Medications Active Medications SIG Qnty Indications Ordering Provide r Date Metformin HCL 1000mg Tablets One tablet bid Unknown Eliquis 5mg Tablets Take 1 Tablet By Mouth Twice Daily Unknown Lisinopril 5mg Tablets take 1 tablet by mouth once daily 90tabs Lesli Mejia FNP Metoprolol Succinate ER 25mg Tablets ER 24HR Take 1 Tablet By Mouth Once Daily Unknown Pantoprazole Sodium 40mg Tablets D R Take 1 Tablet By Mouth Once Daily Unknown Trazodone HCL 100mg Tablets take 1 tablet by mouth at bedtime 90tabs Lesli Mejia FNP 000 Tizanidine HCL 4mg Tablets Unknown Tamsulosin HCL 0.4mg Capsules Lynn Nguyen MD Atorvastatin Calcium 20mg Tablets take 1 tablet by mouth once daily 90tabs Lesli Mejia FNP Magnesium Oxide 400mg Tablets Take 1 Tablet By Mouth Twice Daily Unknown Ipratropium [place]/Albuterol Sulfate 0.5-2.5(3)mg/3ML Solution Use 1 Ampule In Nebulizer Every 4 To 6 H ours as Needed Unknown Aspirin Low Dose 81mg Chewtabs Chew And Swallow 1 Tablet By Mouth Once Daily Unknown Immunizations CPT Code Status Date Vaccine Lot # [id number] Given 12/17/2020 Moderna Sars-(Co vid-19) vaccine, mRNA, LNP-S, PF, 100 mcg/ 0.5 mL 16663 Given 11/19/2020 Moderna Sars-(Co vid-19) vaccine, mRNA, LNP-S, PF, 100 mcg/ 0.5 mL [id number] Given 12/17/2019 Boostrix (Tdap) Tetnus, Diphtheria Toxoids & Acellular Pertussis 29925 Given 06/16/2019 Prevnar 13 80847 Given 07/30/2016 Prevnar 13 09425 Given 09/18/2009 Influenza Virus Vaccine, Pandemic, Split, Intramuscular Use Vital Signs Date Vital Result Comment 04/30/2021 1:43pm BP Systolic 128 mmHg BP Diastolic 70 mmHg Heart Rate 84 /min Body Temperature 97.8 F Respiratory Rate 17 /min Height 64.0 inches 5'4" Weight 181.38 lb O2 % BldC Oximetry 98 % Peak Expiratory Flow Rate 396 Estimated Peak Flow Rate [place] Body Weight 130 lb BMI (Body Mass Index) 31.1 kg/m2 Results Description No Information Available Procedures Date Code Description Status 05/15/2021 550521421 Diabetic Foot Exam Completed 04/30/2021 18382 Office/Outpatient New Moderate M DM 45-59 Minutes Completed Medical Devices Description No Information Available Encounters Type Date Location Provider Dx Diagnosis Office Visit 05/15/2021 11:30a Main Office Lesli Mejia FNP Z00.0 0 Encntr for general adult medical exam w/o abnormal findings I10 Essential (primary) hyperten mik E11.9 Type 2 diabetes mellitus wit hout complications J44.9 Chronic obstructive pulmonar y disease, unspecified I48.20 Chronic atrial fibrillation, unspecified I50.9 Heart failure, unspecified K21.9 Gastro-esophageal reflux dis ease without esophagitis N40.1 Benign prostatic hyperplasia with lower urinary tract symp 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 Office Visit 04/30/2021 1:45p Main Office Lesli Mejia FNP I10 Essential (primary) hypertension E11.9 Type 2 diabetes mellitus wit hout complications J44.9 Chronic obstructive pulmonar y disease, unspecified K21.9 Gastro-esophageal reflux dis ease without esophagitis N40.1 Benign prostatic hyperplasia with lower urinary tract symp 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 05/15/2021 Z00.00 Encounter for genera l adult medical examination without abnormal findings Lesli Mejia FNP 05/15/2021 I10 Essential (primary) hypertension Linda Martinez M.D. 05/15/2021 I10 Essential (primary) hypertension Lesli Mejia FNP 05/15/2021 E11.9 Type 2 diabetes mellitus without complications Linda Martinez M.D. 05/15/2021 E11.9 Type 2 diabetes mellitus without complications Lesli Mejia FNP 05/15/2021 J44.9 Chronic obstructive pulmonary di sease, unspecified Linda Martinez M.D. 05/15/2021 J44.9 Chronic obstructive pulmonary di sease, unspecified Lesli Mejia FNP 05/15/2021 I48.20 Chronic atrial fibrillation, uns pecified Linda Martinez M.D. 05/15/2021 I48.20 Chronic atrial fibrillation, uns pecified Lesli Mejia FNP 05/15/2021 I50.9 Heart failure, unspecified Linda Cordova ams, M.D. 05/15/2021 I50.9 Heart failure, unspecified Lesli Roche FNP 05/15/2021 K21.9 Gastro-esophageal reflux disease without esophagitis Linda Martinez M.D. 05/15/2021 K21.9 Gastro-esophageal reflux disease without esophagitis Lesli Mejia FNP 05/15/2021 N40.1 Benign prostatic hyperplasia wit h lower urinary tract symptoms Linda Martinez M.D. 05/15/2021 N40.1 Benign prostatic hyperplasia wit h lower urinary tract symptoms Lesli Mejia, PRINTER APPRENTICE 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 Lesli Mejia, PRINTER APPRENTICE 04/30/2021 I10 Essential (primary) hypertension Lesli Mejia, PRINTER APPRENTICE 04/30/2021 E11.9 Type 2 diabetes mellitus without complications Lesli Mejia FNP 04/30/2021 J44.9 Chronic obstructive pulmonary di sease, unspecified Lesli Mejia, PRINTER APPRENTICE 04/30/2021 K21.9 Gastro-esophageal reflux disease without esophagitis Lesli Mejia, PRINTER APPRENTICE 04/30/2021 N40.1 Benign prostatic hyperplasia wit h lower urinary tract symptoms Lesli Mejia, PRINTER APPRENTICE 04/30/2021 I69.811 Memory deficit following other c erebrovascular disease Lesli Mejia, PRINTER APPRENTICE 04/30/2021 Z87.820 Personal history of traumatic br ain injury Lesli Mejia FNP 04/30/2021 Z13.89 Encounter for screening for othe r disorder Lesli Mejia FNP Plan of Treatment Future Appointment(s):* 08/15/2021 11:30 am - Lesli Mejia FNP at Main Office 05/15/2021 - Lesli Mejia FNP* Z00.00 Encounter for general adult medical examination without abnormal findings* Comments:* Health maintenance up to date. Overall doing well. JAIRO/PHQ 9/CAGE questionnaire reviewed. Discussed healthy lifestyle choices. * I10 Essential (primary) hypertension* Comments:* controlled, continue current medications * Follow up:* 3 months, no labs * E11.9 Type 2 diabetes mellitus without complications* Comments:* A1C controlled at 6.6, continue metformin * J44.9 Chronic obstructive pulmonary disease, unspecified* Comments:* no concerns today * I48.20 Chronic atrial fibrillation, unspecified* Comments:* On eliquis, rate controlled on metoprolol. Follows with cardiology, due for appointment in August * I50.9 Heart failure, unspecified* Comments:* Follows with cardiology as above * K21.9 Gastro-esophageal reflux disease without esophagitis* Comments:* Hx GI bleed, PUD. Continue pantoprazole * N40.1 Benign prostatic hyperplasia with lower urinary tract symptoms* Comments:* continue tamsulosin * I69.811 Memory deficit following other cerebrovascular disease Functional Status Functional Condition Comment Date Status Glasses Active Independent with all ADL's Activ e Hearing Loss from working in [place] Active Independent with all IADL's Acti ve Rolling walker is used to ambulate with seat Active Standard cane is used with the right hand to ambulate Active Mental Status Mental Condition Comment Date Status None Active Can Understand Information Activ e Referrals Description No Information Available
--- OUTSIDE RECORDS SUMMARY | 2021-07-21 10:43 | CCD | Continuity of Care Document ---
Author Author Tan HINES [facility] Organization Unknown Address [address] [place] [address] Phone [phone] Problems Description No Information Available Social History [...] Provide r Date Metformin HCL 1000mg Tablets Unknown Eliquis 5mg Tablets Take 1 Tablet By Mouth Twice Daily Unknown Lisinopril 5mg Tablets Take 1 Tablet By Mouth Once Daily For 30 Days Unknown Metoprolol Succinate ER 25mg Tablets ER 24HR Take 1 Tablet By Mouth Once Daily Unknown Pantoprazole Sodium 40mg Tablets D R Take 1 Tablet By Mouth Once Daily Unknown Trazodone HCL 100mg Tablets Take 1 Tablet By Mouth AT Bedtime Unknown Zolpidem Tartrate ER 6.25mg Tablets ER Unknown Tizanidine HCL 4mg Tablets Unknown Tamsulosin HCL 0.4mg Capsules Lynn Nguyen MD Atorvastatin Calcium 20mg Tablets Take 1 Tablet By Mouth Once Daily Unknown Ferrous Gluconate 324(38Fe) mg Tab lets Take 1 Tablet By Mouth Once Daily Unknown Magnesium Oxide 400mg Tablets Take 1 Tablet By Mouth Twice Daily Unknown Spironolactone 25mg Tablets Take 1 2 (One Half) Tablet By Mouth Once Daily Unknown Ipratropium [place]/Albuterol Sulfate 0.5-2.5(3)mg/3ML Solution Use 1 Ampule In Nebulizer Every 4 To 6 H ours as Needed Unknown Aspirin Low Dose 81mg Chewtabs Chew And Swallow 1 Tablet By Mouth Once Daily Unknown Torsemide 20mg Tablets Take 1 Tablet By Mouth Once Daily Unknown Immunizations Description No Information Available Vital Signs Date Vital Result Comment 04/30/2021 1:43pm BP Systolic 128 mmHg BP Diastolic 70 mmHg Heart Rate 84 /min Body Temperature 97.8 F Respiratory Rate 17 /min Height 64.0 inches 5'4" Weight 181.38 lb O2 % BldC Oximetry 98 % Peak Expiratory Flow Rate 396 Estimated Peak Flow Rate [place] Body Weight 130 lb BMI (Body Mass Index) 31.1 kg/m2 Results Description No Information Available Procedures Description No Information Available Medical Devices Description No Information Available Encounters Description No Information Available Assessments Date Code Description Provider 04/30/2021 I10 Essential (primary) hypertension Lesli Hines FNP 04/30/2021 E11.9 Type 2 diabetes mellitus without complications Lesli Hines FNP 04/30/2021 J44.9 Chronic obstructive pulmonary di sease, unspecified Lesli Hines FNP 04/30/2021 K21.9 Gastro-esophageal reflux disease without esophagitis Lesli Hines FNP 04/30/2021 N40.1 Benign prostatic hyperplasia wit h lower urinary tract symptoms Lesli Hines FNP 04/30/2021 I69.811 Memory deficit following other c erebrovascular disease Lesli Hines FNP 04/30/2021 Z87.820 Personal history of traumatic br ain injury Lesli Hines FNP Plan of Treatment 04/30/2021 - Lesli Hines FNP* I10 Essential (primary) hypertension* New Labs:* Comprehensive Metabolic Profil, Scheduled: 04/30/21 * Lipid Panel, Scheduled: 04/30/21 * Comments:* controlled, continue current medications * Follow up:* 2 weeks with labs * Recommendations:* Get your labs drawn and bring all of your medications to your next visit * E11.9 Type 2 diabetes mellitus without complications* New Labs:* Hemoglobin A1c, Scheduled: 04/30/21 * Microalbumin Random, Scheduled: 04/30/21 * Comments:* check A1C * J44.9 Chronic obstructive pulmonary disease, unspecified * K21.9 Gastro-esophageal reflux disease without esophagitis* Comments:* controlled on current medications * N40.1 Benign prostatic hyperplasia with lower urinary tract symptoms* New Labs:* PSA Screening, Scheduled: 04/30/21 * I69.811 Memory deficit following other cerebrovascular disease * Z87.820 Personal history of traumatic brain injury Functional Status Functional Condition Comment Date Status [...]
--- OUTSIDE RECORDS SUMMARY | 2021-07-21 10:43 | CCD | Continuity of Care Document ---
Author Author Tan MEJIA [facility] Organization Unknown Address [address] [place] [address] Phone [phone] Problems Description No Information Available Social History [...] Tablet By Mouth Twice Daily Unknown Ipratropium [place]/Albuterol Sulfate 0.5-2.5(3)mg/3ML Solution Use 1 Ampule In Nebulizer Every 4 To 6 H ours as Needed Unknown Aspirin Low Dose 81mg Chewtabs Chew And Swallow 1 Tablet By Mouth Once Daily Unknown Immunizations CPT Code Status Date Vaccine Lot # [id number] Given 12/17/2020 Moderna Sars-(Co vid-19) vaccine, mRNA, LNP-S, PF, 100 mcg/ 0.5 mL 51805 Given 11/19/2020 Moderna Sars-(Co vid-19) vaccine, mRNA, LNP-S, PF, 100 mcg/ 0.5 mL 73136 Given 12/17/2019 Boostrix (Tdap) Tetnus, Diphtheria Toxoids & Acellular Pertussis 51527 Given 06/16/2019 Prevnar 13 65664 Given 07/30/2016 Prevnar 13 55064 Given 09/18/2009 Influenza Virus Vaccine, Pandemic, Split, Intramuscular Use Vital Signs Date Vital Result Comment 04/30/2021 1:43pm BP Systolic 128 mmHg BP Diastolic 70 mmHg Heart Rate 84 /min Body Temperature 97.8 F Respiratory Rate 17 /min Height 64.0 inches 5'4" Weight 181.38 lb O2 % BldC Oximetry 98 % Peak Expiratory Flow Rate 396 Estimated Peak Flow Rate [place] Body Weight 130 lb BMI (Body Mass Index) 31.1 kg/m2 Results Description No Information Available Procedures Date Code Description Status 05/15/2021 [id number] Diabetic Foot Exam Completed 04/30/2021 69411 Office/Outpatient New Moderate M DM 45-59 Minutes [...] h lower urinary tract symptoms Lesli Mejia, BARTENDER SERVER 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 Lesli Mejia, BARTENDER SERVER 04/30/2021 I10 Essential (primary) hypertension Lesli Mejia, BARTENDER SERVER 04/30/2021 E11.9 Type 2 diabetes mellitus without complications Lesli Mejia FNP 04/30/2021 J44.9 Chronic obstructive pulmonary di sease, unspecified Lesli Mejia, BARTENDER SERVER 04/30/2021 K21.9 Gastro-esophageal reflux disease without esophagitis Lesli Mejia, BARTENDER SERVER 04/30/2021 N40.1 Benign prostatic hyperplasia wit h lower urinary tract symptoms Lesli Mejia, BARTENDER SERVER 04/30/2021 I69.811 Memory deficit following other c erebrovascular disease Lesli Mejia, BARTENDER SERVER 04/30/2021 Z87.820 Personal history of traumatic br [...]
--- OUTSIDE RECORDS SUMMARY | 2021-07-21 10:43 | CCD | Continuity of Care Document ---
Author Author Tan MEJIA [facility] Organization Unknown Address [address] [place] [address] Phone [phone] Problems Description No Information Available Social History [...] Tablet By Mouth Twice Daily Unknown Ipratropium [place]/Albuterol Sulfate 0.5-2.5(3)mg/3ML Solution Use 1 Ampule In Nebulizer Every 4 To 6 H ours as Needed Unknown Aspirin Low Dose 81mg Chewtabs Chew And Swallow 1 Tablet By Mouth Once Daily Unknown Immunizations CPT Code Status Date Vaccine Lot # [id number] Given 12/17/2020 Moderna Sars-(Co vid-19) vaccine, mRNA, LNP-S, PF, 100 mcg/ 0.5 mL 94110 Given 11/19/2020 Moderna Sars-(Co vid-19) vaccine, mRNA, LNP-S, PF, 100 mcg/ 0.5 mL [id number] Given 12/17/2019 Boostrix (Tdap) Tetnus, Diphtheria Toxoids & Acellular Pertussis 37218 Given 06/16/2019 Prevnar 13 01232 Given 07/30/2016 Prevnar 13 03351 Given 09/18/2009 Influenza Virus Vaccine, Pandemic, Split, Intramuscular Use Vital Signs Date Vital Result Comment 04/30/2021 1:43pm BP Systolic 128 mmHg BP Diastolic 70 mmHg Heart Rate 84 /min Body Temperature 97.8 F Respiratory Rate 17 /min Height 64.0 inches 5'4" Weight 181.38 lb O2 % BldC Oximetry 98 % Peak Expiratory Flow Rate 396 Estimated Peak Flow Rate [place] Body Weight 130 lb BMI (Body Mass Index) 31.1 kg/m2 Results Description No Information Available Procedures Date Code Description Status 05/15/2021 [id number] Diabetic Foot Exam Completed 04/30/2021 08674 Office/Outpatient New Moderate M DM 45-59 Minutes [...] h lower urinary tract symptoms Lesli Mejia, MANAGER [employer] 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 Lesli Mejia, MANAGER [employer] 04/30/2021 I10 Essential (primary) hypertension Lesli Mejia, MANAGER [employer] 04/30/2021 E11.9 Type 2 diabetes mellitus without complications Lesli Mejia FNP 04/30/2021 J44.9 Chronic obstructive pulmonary di sease, unspecified Lesli Mejia, MANAGER [employer] 04/30/2021 K21.9 Gastro-esophageal reflux disease without esophagitis Lesli Mejia, MANAGER [employer] 04/30/2021 N40.1 Benign prostatic hyperplasia wit h lower urinary tract symptoms Lesli Mejia, MANAGER [employer] 04/30/2021 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
--- OUTSIDE RECORDS SUMMARY | 2021-07-21 10:43 | CCD | Continuity of Care Document ---
Author Author Tan [facility] Organization Unknown Address [address] [place] [address] Phone [phone] Problems Description No Information Available Social History [...] Tablet By Mouth Once Daily Unknown Ipratropium [place]/Albuterol Sulfate 0.5-2.5(3)mg/3ML Solution Use 1 Ampule In [...] Flow Rate 396 Estimated Peak Flow Rate [place] Body Weight 130 lb BMI (Body Mass Index) 31.1 kg/m2 Results Description No Information Available Procedures Date Code Description Status 04/30/2021 77098 Office/Outpatient New Moderate M DM 45-59 Minutes Completed Medical Devices Description No Information Available Encounters Type Date Location Provider Dx Diagnosis Office Visit 04/30/2021 1:45p Main Office Lesli Hines FNP I10 Essential (primary) hypertension E11.9 Type 2 diabetes mellitus wit hout complications J44.9 Chronic obstructive pulmonar y disease, unspecified K21.9 Gastro-esophageal reflux dis ease without esophagitis N40.1 Benign prostatic hyperplasia with lower urinary tract symp 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 Z87.820 Personal history of traumati c brain injury Assessments Date Code Description Provider 04/30/2021 I10 [...] injury Lesli Hines FNP Plan of Treatment Future Appointment(s):* 05/15/2021 11:30 am - Lesli Hines FNP at Main Office 04/30/2021 - Lesli Hines FNP* I10 Essential (primary) hypertension* Comments:* controlled, continue current medications * Follow up:* 2 weeks with labs * Recommendations:* Get your labs drawn and bring all of your medications to your next visit * E11.9 Type 2 diabetes mellitus without complications* Comments:* check A1C * J44.9 Chronic obstructive pulmonary disease, unspecified * K21.9 Gastro-esophageal reflux disease without esophagitis* Comments:* controlled on current medications * N40.1 Benign prostatic hyperplasia with lower urinary tract symptoms * I69.811 Memory deficit following other cerebrovascular disease* Comments:* Patient is a very poor historian, I have asked him to get blood work and bring in all of his medications for review. It is difficult at this point to determine exactly what he is and isn't taking. * Z87.820 Personal history of traumatic brain [...]
--- OUTSIDE RECORDS SUMMARY | 2021-07-21 10:43 | CCD | Continuity of Care Document ---
Author Author Tan MEJIA [facility] Organization Unknown Address [address] [place] [address] Phone [phone] Problems Description No Information Available Social History [...] Tablet By Mouth Twice Daily Unknown Ipratropium [place]/Albuterol Sulfate 0.5-2.5(3)mg/3ML Solution Use 1 Ampule In Nebulizer Every 4 To 6 H ours as Needed Unknown Aspirin Low Dose 81mg Chewtabs Chew And Swallow 1 Tablet By Mouth Once Daily Unknown Immunizations CPT Code Status Date Vaccine Lot # [id number] Given 12/17/2020 Moderna Sars-(Co vid-19) vaccine, mRNA, LNP-S, PF, 100 mcg/ 0.5 mL 22544 Given 11/19/2020 Moderna Sars-(Co vid-19) vaccine, mRNA, LNP-S, PF, 100 mcg/ 0.5 mL 78383 Given 12/17/2019 Boostrix (Tdap) Tetnus, Diphtheria Toxoids & Acellular Pertussis 29556 Given 06/16/2019 Prevnar 13 10210 Given 07/30/2016 Prevnar 13 30865 Given 09/18/2009 Influenza Virus Vaccine, Pandemic, Split, Intramuscular Use Vital Signs Date Vital Result Comment 04/30/2021 1:43pm BP Systolic 128 mmHg BP Diastolic 70 mmHg Heart Rate 84 /min Body Temperature 97.8 F Respiratory Rate 17 /min Height 64.0 inches 5'4" Weight 181.38 lb O2 % BldC Oximetry 98 % Peak Expiratory Flow Rate 396 Estimated Peak Flow Rate [place] Body Weight 130 lb BMI (Body Mass Index) 31.1 kg/m2 Results Description No Information Available Procedures Date Code Description Status 05/15/2021 [id number] Diabetic Foot Exam Completed 04/30/2021 33203 Office/Outpatient New Moderate M DM 45-59 Minutes Completed Medical Devices Description No Information Available Encounters Type Date Location Provider Dx Diagnosis Office Visit 05/15/2021 11:30a Main Office Lesil Mejia FNP Z00.0 0 Encntr for general [...] h lower urinary tract symptoms Lesli Mejia, GARMENT EXAMINER 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
--- OUTSIDE RECORDS SUMMARY | 2021-07-21 10:43 | CCD | Continuity of Care Document ---
Author Author Tan MEJIA [facility] Organization Unknown Address [address] [place] [address] Phone [phone] Problems Description No Information Available Social History [...] Tablet By Mouth Twice Daily Unknown Ipratropium [place]/Albuterol Sulfate 0.5-2.5(3)mg/3ML Solution Use 1 Ampule In Nebulizer Every 4 To 6 H ours as Needed Unknown Aspirin Low Dose 81mg Chewtabs Chew And Swallow 1 Tablet By Mouth Once Daily Unknown Immunizations CPT Code Status Date Vaccine Lot # [id number] Given 12/17/2020 Moderna Sars-(Co vid-19) vaccine, mRNA, LNP-S, PF, 100 mcg/ 0.5 mL 58587 Given 11/19/2020 Moderna Sars-(Co vid-19) vaccine, mRNA, LNP-S, PF, 100 mcg/ 0.5 mL 12528 Given 12/17/2019 Boostrix (Tdap) Tetnus, Diphtheria Toxoids & Acellular Pertussis 09477 Given 06/16/2019 Prevnar 13 61988 Given 07/30/2016 Prevnar 13 05562 Given 09/18/2009 Influenza Virus Vaccine, Pandemic, Split, Intramuscular Use Vital Signs Date Vital Result Comment 04/30/2021 1:43pm BP Systolic 128 mmHg BP Diastolic 70 mmHg Heart Rate 84 /min Body Temperature 97.8 F Respiratory Rate 17 /min Height 64.0 inches 5'4" Weight 181.38 lb O2 % BldC Oximetry 98 % Peak Expiratory Flow Rate 396 Estimated Peak Flow Rate [place] Body Weight 130 lb BMI (Body Mass Index) 31.1 kg/m2 Results Description No Information Available Procedures Date Code Description Status 05/15/2021 [id number] Diabetic Foot Exam Completed 04/30/2021 58057 Office/Outpatient New Moderate M DM 45-59 Minutes [...] h lower urinary tract symptoms Lesli Mejia, BACK SHOE WORKER 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
--- OUTSIDE RECORDS SUMMARY | 2021-07-21 10:43 | CCD | Continuity of Care Document ---
Author Author Tan [facility]ES [facility] Organization Unknown Address [address] [place] [address] Phone [phone] Problems Description No Information Available Social History [...] Tablet By Mouth Once Daily Unknown Ipratropium [place]/Albuterol Sulfate 0.5-2.5(3)mg/3ML Solution Use 1 Ampule In [...] Flow Rate 396 Estimated Peak Flow Rate [place] Body Weight 130 lb BMI (Body Mass Index) 31.1 kg/m2 Results Description No Information Available Procedures Date Code Description Status 04/30/2021 08722 Office/Outpatient New Moderate M DM 45-59 Minutes [...] other disorder Assessments Date Code Description Provider 04/30/2021 I10 [...] traumatic br ain injury Lesli Hines FNP 04/30/2021 Z13.89 Encounter for screening for othe r disorder Lesli Hines FNP Plan of Treatment Future [...] Z87.820 Personal history of traumatic brain injury * Z13.89 Encounter for screening for other disorder Functional Status Functional Condition Comment Date Status [...]
--- OUTSIDE RECORDS SUMMARY | 2021-07-21 10:43 | CCD | Continuity of Care Document ---
Author Author Tan MEJIA [facility] Organization Unknown Address [address] [place] [address] Phone [phone] Problems Description No Information Available Social History [...] Tablet By Mouth Twice Daily Unknown Ipratropium [place]/Albuterol Sulfate 0.5-2.5(3)mg/3ML Solution Use 1 Ampule In Nebulizer Every 4 To 6 H ours as Needed Unknown Aspirin Low Dose 81mg Chewtabs Chew And Swallow 1 Tablet By Mouth Once Daily Unknown Immunizations CPT Code Status Date Vaccine Lot # [id number] Given 12/17/2020 Moderna Sars-(Co vid-19) vaccine, mRNA, LNP-S, PF, 100 mcg/ 0.5 mL 59559 Given 11/19/2020 Moderna Sars-(Co vid-19) vaccine, mRNA, LNP-S, PF, 100 mcg/ 0.5 mL 29583 Given 12/17/2019 Boostrix (Tdap) Tetnus, Diphtheria Toxoids & Acellular Pertussis 75457 Given 06/16/2019 Prevnar 13 45147 Given 07/30/2016 Prevnar 13 92625 Given 09/18/2009 Influenza Virus Vaccine, Pandemic, Split, Intramuscular Use Vital Signs Date Vital Result Comment 04/30/2021 1:43pm BP Systolic 128 mmHg BP Diastolic 70 mmHg Heart Rate 84 /min Body Temperature 97.8 F Respiratory Rate 17 /min Height 64.0 inches 5'4" Weight 181.38 lb O2 % BldC Oximetry 98 % Peak Expiratory Flow Rate 396 Estimated Peak Flow Rate [place] Body Weight 130 lb BMI (Body Mass Index) 31.1 kg/m2 Results Description No Information Available Procedures Date Code Description Status 05/15/2021 [id number] Diabetic Foot Exam Completed 04/30/2021 24537 Office/Outpatient New Moderate M DM 45-59 Minutes [...] lower urinary tract symptoms Lesli Mejia, MANAGER SERVICES 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
--- OUTSIDE RECORDS SUMMARY | 2021-07-21 10:44 | CCD ---
Author Author [facility] Organization [facility] Address Unknown Phone Unavailable Care Team Providers Care Street Light Wirer Name Role Phone Christi Finnegan MD Unavailable Unavailable Christi Finnegan MD Unavailable Unavailable Christi Finnegan MD Unavailable Unavailable Christi Finnegan MD Unavailable Unavailable Christi Finnegan MD Unavailable Unavailable Christi Finnegan MD Unavailable Unavailable Christi Finnegan MD Unavailable Unavailable Christi Finnegan MD Unavailable Unavailable Christi Finnegan MD Unavailable Unavailable Christi Finnegan MD Unavailable Unavailable Christi Finnegan MD Unavailable Unavailable Christi Finnegan MD Unavailable Unavailable Christi Finnegan MD Unavailable Unavailable Christi Finnegan MD Unavailable Unavailable Christi Finnegan MD Unavailable Unavailable Christi Finnegan MD Unavailable Unavailable Christi Finnegan MD Unavailable Unavailable Abriss, B Arya MALDONADO Unavailable Unavailable Abriss, B Arya MALDONADO Unavailable Unavailable Wendy, Lynn DO Unavailable Unavailable Wendy, Lynn DO Unavailable Unavailable Wendy, Lynn DO Unavailable Unavailable Wendy, Lynn DO Unavailable Unavailable Wendy, Lynn DO Unavailable Unavailable Wendy, Lynn DO Unavailable Unavailable Wendy, Lynn DO Unavailable Unavailable Wendy, Lynn DO Unavailable Unavailable Wendy, Lynn DO Unavailable Unavailable Wendy, Lynn DO Unavailable Unavailable Wendy, Lynn DO Unavailable Unavailable Wendy, Lynn DO Unavailable Unavailable Wendy, Lynn DO Unavailable Unavailable Wendy, Lynn DO Unavailable Unavailable Wendy, Lynn DO Unavailable Unavailable Wendy, Lynn DO Unavailable Unavailable Wendy, Lynn DO Unavailable Unavailable Wendy, Lynn DO Unavailable Unavailable Wendy, Lynn DO Unavailable Unavailable Wendy, Lynn DO Unavailable Unavailable Wendy, Lynn DO Unavailable Unavailable Wendy, Lynn DO Unavailable Unavailable Wendy, Lynn DO Unavailable Unavailable Wendy, Lynn DO Unavailable Unavailable Wendy, Lynn DO Unavailable Unavailable Wendy, Lynn DO Unavailable Unavailable Wendy, Lynn DO Unavailable Unavailable Wendy, Lynn DO Unavailable Unavailable Wendy, Lynn DO Unavailable Unavailable Wendy, Lynn DO Unavailable Unavailable Wendy, Lynn DO Unavailable Unavailable Wendy, Lynn DO Unavailable Unavailable Wendy, Lynn DO Unavailable Unavailable Wendy, Lynn DO Unavailable Unavailable Wendy, Lynn DO Unavailable Unavailable Wendy, Lynn DO Unavailable Unavailable Wendy, Lynn DO Unavailable Unavailable Wendy, Lynn DO Unavailable Unavailable Wendy, Lynn DO Unavailable Unavailable Wendy, Lynn DO Unavailable Unavailable Wendy, Lynn DO Unavailable Unavailable Wendy, Lynn DO Unavailable Unavailable Wendy, Lynn DO Unavailable Unavailable Wendy, Lynn DO Unavailable Unavailable Wendy, Lynn DO Unavailable Unavailable Wendy, Lynn DO Unavailable Unavailable Wendy, Lynn DO Unavailable Unavailable Wendy, Lynn DO Unavailable Unavailable Wendy, Lynn DO Unavailable Unavailable Wendy, Lynn DO Unavailable Unavailable Wendy, Lynn DO Unavailable Unavailable Wendy, Lynn DO Unavailable Unavailable Wendy, Lynn DO Unavailable Unavailable Wendy, Lynn DO Unavailable Unavailable Wendy, Lynn DO Unavailable Unavailable Wendy, Lynn DO Unavailable Unavailable Wendy, Lynn DO Unavailable Unavailable Wendy, Lynn DO Unavailable Unavailable Wendy, Lynn DO Unavailable Unavailable Wendy, Lynn DO Unavailable Unavailable Wendy, Lynn DO Unavailable Unavailable Wendy, Lynn DO Unavailable Unavailable Wendy, Lynn DO Unavailable Unavailable Wendy, Lynn DO Unavailable Unavailable Wendy, Lynn DO Unavailable Unavailable Wendy, Lynn DO Unavailable Unavailable Wendy, Lynn DO Unavailable Unavailable Wendy, Lynn DO Unavailable Unavailable Wendy, Lynn DO Unavailable Unavailable Wendy, Lynn DO Unavailable Unavailable Wendy, Lynn DO Unavailable Unavailable Wendy, Lynn DO Unavailable Unavailable Wendy, Lynn DO Unavailable Unavailable Wendy, Lynn DO Unavailable Unavailable Pleskach, Lesli MITTEN SEWER Unavailable Unavailable Pleskach, Lesli MITTEN SEWER Unavailable Unavailable Pleskach, Lesli MITTEN SEWER Unavailable Unavailable Pleskach, Lesli MITTEN SEWER Unavailable Unavailable Pleskach, Lesli MITTEN SEWER Unavailable Unavailable Pleskach, Lesli MITTEN SEWER Unavailable Unavailable Pleskach, Lesli MITTEN SEWER Unavailable Unavailable Pleskach, Lesli MITTEN SEWER Unavailable Unavailable Pleskach, Lesli MITTEN SEWER Unavailable Unavailable Pleskach, Lesli MITTEN SEWER Unavailable Unavailable Pleskach, Lesli MITTEN SEWER Unavailable Unavailable Pleskach, Lesli MITTEN SEWER Unavailable Unavailable Pleskach, Lesli MITTEN SEWER Unavailable Unavailable Pleskach, Lesli MITTEN SEWER Unavailable Unavailable Pleskach, Lesli MITTEN SEWER Unavailable Unavailable Pleskach, Lesli MITTEN SEWER Unavailable Unavailable Pleskach, Lesli MITTEN SEWER Unavailable Unavailable Pleskach, Lesli MITTEN SEWER Unavailable Unavailable Pleskach, Lesli MITTEN SEWER Unavailable Unavailable Pleskach, Lesli MITTEN SEWER Unavailable Unavailable Pleskach, Lseli MITTEN SEWER Unavailable Unavailable Pleskach, Lesli MITTEN SEWER Unavailable Unavailable Pleskach, Lesli MITTEN SEWER Unavailable Unavailable Pleskach, Lesli MITTEN SEWER Unavailable Unavailable Pleskach, Lesli MITTEN SEWER Unavailable Unavailable Pleskach, Lesli MITTEN SEWER Unavailable Unavailable Pleskach, Lesli MITTEN SEWER Unavailable Unavailable Pleskach, Lesli MITTEN SEWER Unavailable Unavailable Pleskach, Lesli MITTEN SEWER Unavailable Unavailable Pleskach, Lesli MITTEN SEWER Unavailable Unavailable Pleskach, Lesli MITTEN SEWER Unavailable Unavailable Pleskach, Lesli MITTEN SEWER Unavailable Unavailable Pleskach, Lesli MITTEN SEWER Unavailable Unavailable Pleskach, Lesli MITTEN SEWER Unavailable Unavailable Pleskach, Lesli MITTEN SEWER Unavailable Unavailable Pleskach, Lesli MITTEN SEWER Unavailable Unavailable Pleskach, Lesli MITTEN SEWER Unavailable Unavailable Pleskach, Lesli MITTEN SEWER Unavailable Unavailable Pleskach, Lesli MITTEN SEWER Unavailable Unavailable Pleskach, Lesli MITTEN SEWER Unavailable Unavailable Pleskach, Lesli MITTEN SEWER Unavailable Unavailable Pleskach, Lesli MITTEN SEWER Unavailable Unavailable Mayer, V NADIA PA-C Unavailable Unavailable Mayer, V NADIA PA-C Unavailable Unavailable Kaylyn, V NADIA PA-C Unavailable Unavailable Mayer, V NADIA PA-C Unavailable Unavailable Mayer, V NADIA PA-C Unavailable Unavailable Kaylyn, V NADIA PA-C Unavailable Unavailable Kaylyn, V NADIA PA-C Unavailable Unavailable Kaylyn, V NADIA PA-C Unavailable Unavailable Mayer, V NADIA PA-C Unavailable Unavailable Mayer, V NADIA PA-C Unavailable Unavailable Mayer, V NADIA PA-C Unavailable Unavailable Mayer, V NADIA PA-C Unavailable Unavailable Mayer, V NADIA PA-C Unavailable Unavailable Mayer, V NADIA PA-C Unavailable Unavailable Wendy, Lynn DO Unavailable Unavailable Wendy, Lynn DO Unavailable Unavailable Wendy, Lynn DO Unavailable Unavailable Wendy, Lynn DO Unavailable Unavailable Wendy, Lynn DO Unavailable Unavailable Wendy, Lynn DO Unavailable Unavailable Wendy, Lynn DO Unavailable Unavailable Wendy, Lynn DO Unavailable Unavailable Wendy, Lynn DO Unavailable Unavailable Wendy, Lynn DO Unavailable Unavailable Wendy, Lynn DO Unavailable Unavailable Wendy, Lynn DO Unavailable Unavailable Wendy, Lynn DO Unavailable Unavailable Wendy, Lynn DO Unavailable Unavailable Wendy, Lynn DO Unavailable Unavailable Wendy, Lynn DO Unavailable Unavailable Wendy, Lynn DO Unavailable Unavailable Wendy, Lynn DO Unavailable Unavailable Wendy, Lynn DO Unavailable Unavailable Wendy, Lynn DO Unavailable Unavailable Wendy, Lynn DO Unavailable Unavailable Wendy, Lynn DO Unavailable Unavailable Wendy, Lynn DO Unavailable Unavailable Wendy, Lynn DO Unavailable Unavailable Wendy, Lynn DO Unavailable Unavailable Wendy, Lynn DO Unavailable Unavailable Wendy, Lynn DO Unavailable Unavailable Wendy, Lynn DO Unavailable Unavailable Wendy, Lynn DO Unavailable Unavailable Wendy, Lynn DO Unavailable Unavailable Wendy, Lynn DO Unavailable Unavailable Wendy, Lynn DO Unavailable Unavailable Wendy, Lynn DO Unavailable Unavailable Wendy, Lynn DO Unavailable Unavailable Wendy, Lynn DO Unavailable Unavailable Wendy, Lynn DO Unavailable Unavailable Wendy, Lynn DO Unavailable Unavailable Wendy, Lynn DO Unavailable Unavailable Wendy, Lynn DO Unavailable Unavailable Wendy, Lynn DO Unavailable Unavailable Wendy, Lynn DO Unavailable Unavailable Wendy, Lynn DO Unavailable Unavailable Wendy, Lynn DO Unavailable Unavailable Wendy, Lynn DO Unavailable Unavailable Wendy, Lynn DO Unavailable Unavailable Wendy, Lynn DO Unavailable Unavailable Wendy, Lynn DO Unavailable Unavailable Wendy, Lynn DO Unavailable Unavailable Wendy, Lynn DO Unavailable Unavailable Wendy, Lynn DO Unavailable Unavailable Wendy, Lynn DO Unavailable Unavailable Wendy, Lynn DO Unavailable Unavailable Wendy, Lynn DO Unavailable Unavailable Wendy, Lynn DO Unavailable Unavailable Wendy, Lynn DO Unavailable Unavailable Wendy, Lynn DO Unavailable Unavailable Wendy, Lynn DO Unavailable Unavailable Wendy, Lynn DO Unavailable Unavailable Wendy, Lynn DO Unavailable Unavailable Wendy, Lynn DO Unavailable Unavailable Wendy, Lynn DO Unavailable Unavailable Wendy, Lynn DO Unavailable Unavailable Wendy, Lynn DO Unavailable Unavailable Wendy, Lynn DO Unavailable Unavailable Wendy, Lynn DO Unavailable Unavailable Wendy, Lynn DO Unavailable Unavailable Wendy, Lynn DO Unavailable Unavailable Wendy, Lynn DO Unavailable Unavailable Wendy, Lynn DO Unavailable Unavailable Wendy, Lynn DO Unavailable Unavailable Wendy, Lynn DO Unavailable Unavailable Wendy, Lynn DO Unavailable Unavailable Wendy, Lynn DO Unavailable Unavailable Wendy, Lynn DO Unavailable Unavailable FRANCOIS, M ROGERS PA Unavailable Unavailable FRANCOIS, M ROGERS PA Unavailable Unavailable FRANCOIS, M ROGERS PA Unavailable Unavailable FRANCOIS, M ROGERS PA Unavailable Unavailable FRANCOIS, M ROGERS PA Unavailable Unavailable FRANCOIS, M ROGERS PA Unavailable Unavailable FRANCOIS, M ROGERS PA Unavailable Unavailable FRANCOIS, M ROGERS PA Unavailable Unavailable FRANCOIS, M ROGERS PA Unavailable Unavailable FRANCOIS, M ROGERS PA Unavailable Unavailable FRANCOIS, M ROGERS PA Unavailable Unavailable FRANCOIS, M ROGERS PA Unavailable Unavailable FRANCOIS, M ROGERS PA Unavailable Unavailable FRANCOIS, M ROGERS PA Unavailable Unavailable FRANCOIS, M ROGERS PA Unavailable Unavailable FRANCOIS, M ROGERS PA Unavailable Unavailable FRANCOIS, M ROGERS PA Unavailable Unavailable FRANCOIS, M ROGERS PA Unavailable Unavailable FRANCOIS, M ROGERS PA Unavailable Unavailable FRANCOIS, M ROGERS PA Unavailable Unavailable FRANCOIS, M ROGERS PA Unavailable Unavailable FRANCOIS, M ROGERS PA Unavailable Unavailable FRANCOIS, M ROGERS PA Unavailable Unavailable FRANCOIS, M ROGERS PA Unavailable Unavailable FRANCOIS, M ROGERS PA Unavailable Unavailable FRANCOIS, Enid MENDOZAUS PA Unavailable Unavailable FRANCOIS, Enid MENDOZAUS PA Unavailable Unavailable FRANCOIS, M ROGERS PA Unavailable Unavailable FRANCOIS, M ROGERS PA Unavailable Unavailable FRANCOIS, M ROGERS PA Unavailable Unavailable FRANCOIS, M ROGERS PA Unavailable Unavailable FRANCOIS, Enid MENDOZAUS PA Unavailable Unavailable FRANCOIS, Enid MENDOZAUS PA Unavailable Unavailable FRANCOIS, Enid MCCLOUD PA Unavailable Unavailable FRANCOIS, Enid MCCLOUD PA Unavailable Unavailable Re-disclosure Warning The records that you are about to access may contain information from federally-assisted alcohol or drug abuse programs. If such information is present, then the following federally mandated warning applies: This information has been disclosed to you from records protected by federal confidentiality rules (42 CFR part 2). The federal rules prohibit you from making any further disclosure of this information unless further disclosure is expressly permitted by the written consent of the person to whom it pertains or as otherwise permitted by 42 CFR part 2. A general authorization for the release of medical or other information is NOT sufficient for this purpose. The Federal rules restrict any use of the information to criminally investigate or prosecute any alcohol or drug abuse patient.The records that you are about to access may contain highly sensitive health information, the redisclosure of which is protected by Article 27-F of the [facility] Public Health law. If you continue you may have access to information: Regarding HIV / AIDS; Provided by facilities licensed or operated by the [facility] Office of Mental Health; or Provided by the [facility] Office for People With Developmental Disabilities. If such information is present, then the following [facility] mandated warning applies: This information has been disclosed to you from confidential records which are protected by state law. State law prohibits you from making any further disclosure of this information without the specific written consent of the person to whom it pertains, or as otherwise permitted by law. Any unauthorized further disclosure in violation of state law may result in a fine or halfway sentence or both. A general authorization for the release of medical or other information is NOT sufficient authorization for further disc losure. Family History Family Member Name Family Member Gender Family Member Status Date o f Status Description Data Source(s) Unknown Male Problem [facility] ([facility], ) Encounters Encounter Providers Location Date Indications Data Source(s ) Outpatient Attender: Lesli Mejia [facility] Main Office 05/15/2021 1 1:30:00 AM EDT [facility] ([facility] Outpatient Attender: Lesli Jackie [facility] Main Office 04/30/2021 0 1:45:00 PM EDT [facility] ([facility] Outpatient Attender: ROGERS SCHULTZ [place] 03/20/2021 12:30:00 PM EDT [facility] ([facility] Outpatient Attender: ROGERS SCHULTZ [place] 02/08/2021 03:00:00 PM EDT [facility] ([facility]) Outpatient Attender: Arya Finnegan MD [place] 01/26/2021 10:30:00 AM EDT [facility] ([facility]) Outpatient Attender: ROGERS SCHUTLZ [place] 01/15/2021 01:00:00 PM EDT [facility] ([facility] [place] [address] [facility] [address] 09/25/2020 12:00:00 AM EST eCW1 ([facility]) Outpatient [id number] 08/22/2020 02:45:14 PM EST [facility] Outpatient Attender: NADIA KISER.JAM-SJPJenniferJAM 06/2020 12:00:00 AM EST - 08/14/2020 04:31:55 PM EST [facility] [place] [address] [facility] [address] 07/17/2020 12:00:00 AM EDT [facility]CW1 ([facility]) [place] [address] [facility] [address] 07/14/2020 12:00:00 AM EDT [facility] [place] [address] [address] 07/13/2020 12:00:00 AM EDT eCW1 ([facility]) [place] [address] [address] 07/13/2020 12:00:00 AM EDT eCW1 ([facility]) [place] [address] [address] 07/06/2020 12:00:00 AM EDT eCW1 ([facility]) Outpatient WOJCIECH 07/04/2020 05:12:54 PM EDT [facility] Outpatient Referrer: Lynn ADHIKARI 07/04/2020 12 :00:00 AM EDT [facility] Outpatient Attender: Lynn Kuhn 06/29 01:15:00 PM EDT [facility] ([facility] ) Outpatient Attender: Lynn Kuhn 06/08 02:30:00 PM EDT [facility] ([facility] ) Immunizations Vaccine Date Status Description Data Source(s) COVID-19 VACCINE Moderna 12/17/2020 12:00:00 AM EST completed [facility] Vaccine Series Complete: YESThis Data wa s Submitted to [facility]. Moderna Sars-(Covid-19) vaccine, mRNA, LNP-S, PF, 100 mcg/ 0.5 mL 12/16/2020 11:00:00 PM EST completed [facility] COVID-19 VACCINE Moderna 11/19/2020 12:00:00 AM EST completed [facility] Vaccine Series Complete: NOThis Data was Submitted to [facility]. Moderna Sars-(Covid-19) vaccine, mRNA, LNP-S, PF, 100 mcg/ 0.5 mL 11/18/2020 11:00:00 PM EST completed [facility] Medications Medication Brand Name Start Date Product Form Dose Route Admi nistrative Instructions Pharmacy Instructions Status Indications Reaction Description Data Source(s) Covid-19 vaccine, Unspecified 12/17/2020 12:00:00 AM EST completed [facility] ([facility], ) Medication administered onsite Covid-19 vaccine, Unspecified 11/19/2020 12:00:00 AM EST completed [facility] ([facility], ) Medication administered onsite apixaban 5 MG Oral Tablet [Eliquis] Eliquis 06/30/2020 12:00:00 AM E DT ORAL active [facility] ([facility]) Melatonin 10 MG Oral Tablet Melatonin 06/29/2020 12:00:00 AM EDT ORAL active [facility] ([facility]) tizanidine 4 MG Oral Tablet Tizanidine HCL 06/20/2020 12:00:00 AM EDT ORAL active [facility] ([facility]) Potassium Chloride 10 MEQ Extended Release Oral Capsul e [Klor-Con] Klor-Con Sprinkle 06/08/2020 12:00:00 AM EDT ORAL completed [facility] ([facility]) Spironolactone 25 MG Oral Tablet Spironolactone 06/08/2020 12:00:00 A M EDT ORAL active [facility] ([facility]) Lisinopril 5 MG Oral Tablet Lisinopril 06/05/2020 12:00:00 AM EDT ORAL active [facility] ([facility]) torsemide 20 MG Oral Tablet Torsemide 06/05/2020 12:00:00 AM EDT ORAL active [facility] ([facility]) Albuterol 0.21 MG/ML Inhalant Solution Albuterol Sulfate 0 05/29/2020 12:00:00 AM EDT completed [facility] ([facility]) Trazodone Hydrochloride 100 MG Oral Tablet Trazodone HCL 05/29/2020 12:00:00 AM EDT ORAL active [facility] Albuterol 0.833 MG/ML / Ipratropium [place] 0.167 MG/M L Inhalant Solution Ipratropium [place]/Albuterol Sulfate 05/29/2020 12:00:00 AM EDT active [facility] ([facility]) Albuterol 1 MG/ML Inhalant Solution Albuterol Sulfate 05/07 12:00:00 AM EDT completed [facility] ([facility]) Mirtazapine 15 MG Oral Tablet Mirtazapine 05/25/2020 12:00:00 AM EDT ORAL completed [facility] ([facility]) Donepezil hydrochloride 10 MG Oral Tablet Donepezil HCL 05/25/2020 12:00:00 AM EDT ORAL completed [facility] ([facility]) Tamsulosin hydrochloride 0.4 MG Oral Capsule Tamsulosin HCL 05/25/2020 12:00:00 AM EDT active [facility] ([facility]) tizanidine 4 MG Oral Capsule Tizanidine HCL 05/25/2020 12:00:00 AM EDT ORAL completed [facility] ([facility]) Metformin hydrochloride 500 MG Oral Tablet Metformin HCL 05/25/2020 12:00:00 AM EDT ORAL active [facility] ([facility]) ferrous sulfate 325 MG Oral Tablet Ferrousul 05/25/2020 12:00:00 AM EDT ORAL active [facility] ([facility]) pantoprazole 40 MG Delayed Release Oral Tablet Pantoprazole Sodium 05/25/2020 12:00:00 AM EDT ORAL active M EDENT ([facility]) Warfarin Sodium 2.5 MG Oral Tablet Warfarin Sodium 05/25/2020 12:00 :00 AM EDT completed [facility] ([facility]) Aspirin 81 MG Chewable Tablet Aspirin Childrens 05/25/2020 12:00:00 A M EDT ORAL active [facility] ([facility]) atorvastatin 20 MG Oral Tablet Atorvastatin Calcium 05/25/2020 1 2:00:00 AM EDT ORAL active [facility] ( [facility]) 24 HR metoprolol succinate 25 MG Extended Release Oral Tablet Metoprolol Succinate ER 05/25/2020 12:00:00 AM EDT ORAL active [facility] ([facility]) Magnesium Oxide 400 MG Oral Tablet Magnesium Oxide 05/25/2020 12:00 :00 AM EDT ORAL active [facility] ([facility]) 24 HR metoprolol succinate 50 MG Extended Release Oral Tablet Metoprolol Succinate ER 05/25/2020 12:00:00 AM EDT ORAL completed [facility] ([facility]) Insurance Providers Payer name Policy type / Coverage type Policy ID Covered green party ID Covered green party's relationship to cordero Policy [place] Plan Information WORKER'S COMP [id number] [facility] [id number] WORKERS COMPENSATION GENERIC W [id number] Empl [id number] [place] CLAIM MGMT WC W [id number] Empl [id number] WORKERS COMPENSATION GENERIC W [id number] Empl [id number] WORKERS COMPENSATION GENERIC W [id number] Empl [id number] MEDICARE A [id number] Self [id number] MEDICARE [id number] Crystal [id number] A MEDICARE [id number] Crystal [id number] A MEDICARE [id number] Crystal [id number] MEDICARE A [id number] Self [id number] A MEDICARE [id number] SP [id number] A MEDICARE [id number] Crystal [id number] AMER PROG TODAYS OPTIONS G [id number] Self [id number] HUMANA MEDICARE [id number] Crystal [id number] HUMANA MEDICARE [id number] Crystal [id number] HUMANA MEDICARE [id number] Crystal [id number] AARP U [id number] Self [id number] MEDICARE A [id number] Self [id number] A MEDICARE A [id number] Self [id number] A UHC [id number] Crystal [id number] C [id number] Crystal [id number] AARP HEALTH CARE OPTIONS [id number] SP [id number] AARP HE[employer] CARE OPTIONS [id number] SP [id number] AARP HE[employer] C[employer] OPTIONS [place] [id number] 18 [id number] [employer] Health Care Options Commercial [id number] Self [id number] [employer] Options Commercial [id number] Self [id number] [employer] CLAIM SERVICES O [id number] S [id number] [facility] O [id number] TODAYS OPTION -O/P [id number] 18 [id number] [facility] [id number] SP [id number] Today's Options Medicare Commercial .[id number] Self TODAYS OPTIONS/TAIWANESE O [id number] S [id number] TODAYS OPTION -PHYSICIAN [id number] TODAYS OPTION -SWING [id number] 18 [id number] TODAYS OPTION -I/P [id number] 18 [id number] [place] CLAIMS -O/P [id number] 18 [id number] [place] CLAIMS -CLINIC [id number] 18 [id number] TODAYS OPTIONS -O/P [id number] 18 [id number] TODAYS OPTIONS -CLINIC [id number] 18 [id number] HUMANA MEDICARE ADVANTAGE [id number] 18 [id number] HUMANA MEDICARE [id number] 18 [id number] WORKMANS COMPENSATION -O/P [id number] 18 [id number] MEDICARE [id number] SP [id number] WORKERS COMP - CLINIC [id number] 18 [id number] AARP HE[employer] CARE OPTIONS [id number] SP [id number] AARP HE[employer] CARE OPTIONS [id number] SP [id number] TODAYS OPTIONSDO NOT USE [id number] SP [id number] [facility] [id number] SP [id number] AARP O [id number] S [id number] 111 MEDICARE C [id number] S [id number] AARP HEALTH CARE OPTIONS -O/P [id number] 18 [id number] MEDICARE PART A -O/P [id number] 18 [id number] Aarp Medigap Part B [id number] Self [id number] [place] Medicare Primary [id number] Self [id number] TODAYS OPTIONS [id number] SP [id number] Aarp Medigap Part B [id number] Self [id number] Medicare [place]/[facility] Medicare Primary [id number] Self [id number] MEDICARE [id number] SP [id number] A [facility] PI PI MEDICARE PI PI AAR HEALTH CARE OPTIONS [id number] [id number] [facility] [id number] 18 [id number] Aar Health Care Options Medihalsey Part B [id number] Self 3 [id number] Medicare Part A [place] Medicare Primary [id number] Self 1 [id number] [facility] HEALTH CARE OPTIONS [id number] MEDICARE PART A [facility] [id number] 18 [id number] Problems, Conditions, and Diagnoses No Information Surgeries/Procedures Procedure Description Date Indications Data Source(s) Diabetic Foot Exam 05/15/2021 12:00:00 AM EDT [facility] ([facility] OFFICE OUTPATIENT NEW 45 MINUTES 04/30/2021 12:00:00 A M EDT [facility] ([facility] [facility] Bronchospasm Evaluation 02/08/2021 12:00:00 AM EDT [facility] ([facility], ) Plethysmography Determination Lung Volumes & Per Airway Resi st 02/08/2021 12:00:00 AM EDT [facility] ([facility] ) DIFFUSING CAPACITY 02/08/2021 12:00:00 AM EDT [facility] ([facility], ) Spirometry 01/15/2021 12:00:00 AM EDT M EDENT ([facility], ) Staple Removal 07/06/2020 12:00:00 AM EDT eCW1 ([facility]) Results ID Date Data Source [id number] 01/15/2021 12:50:00 PM EDT [facility] ([facility], ) Name Value Range Interpretation Code Description Data Anu rce(s) Supporting Document(s) PDFReport Laboratory test result [facility] ([facility], ) FVC-Pred 3.34 L [facility] ([facility]) FVC-Pre 1.68 L [facility] ([facility]) FVC-%Pred-Pre 50 L [facility] ([facility]) FVC-LLN 2.54 L [facility] ([facility]) Fev1-%Pred-Pre 65 L [facility] ([facility]) Fev1-Pre 1.57 L [facility] ([facility]) Fev1-Pred 2.37 L [facility] ([facility]) Fev6-Pred 3.10 L [facility] ([facility]) Fev1-LLN 1.69 L [facility] ([facility]) Fev6-%Pred-Pre 54 L [facility] ([facility]) Fev6-Pre 1.68 L [facility] ([facility]) Fev6-LLN 2.31 L [facility] ([facility]) Tbk0aju-Wcmo 72 % [facility] ([facility]) Ibh8aew-Awe 93 % [facility] ([facility]) Noc8tpo-Riot 93 % [facility] ([facility]) Jtg3vsl-%Pred-Pre 128 % [facility] ([facility]) Lnz9dvu-HMG 62 % [facility] ([facility]) Flg2nag-Ymw 100 % [facility] ([facility]) Uxc0nok-%Pred-Pre 107 % [facility] ([facility]) FEFMax-Pred 6.51 L/E/sec [facility] ([facility]) FEFMax-Pre 3.39 L/E/sec [facility] ([facility]) FEFMax-LLN 4.51 L/E/sec [facility] ([facility] ) FEFMax-%Pred-Pre 52 L/E/sec [facility] ([facility]) Ryk4509-Quo 2.13 L/E/sec [facility] ([facility]) Wqg7923-Wzty 1.67 L/E/sec [facility] ([facility]) Obt5455-%Pred-Pre 127 L/E/sec [facility] ([facility]) Kfz6407-BKJ 0.29 L/E/sec [facility] ([facility]) ExpTime-Pre 3.57 sec [facility] ([facility]) Big2syi6-Ina 93 % [facility] ([facility]) Tts0btv6-Zktm 77 % [facility] ([facility]) Kdo8epv9-%Pred-Pre 121 % [facility] ([facility]) Ziq0pop1-XQM 68 % [facility] ([facility]) ID Date Data Source [id number] 07/04/2020 05:03:42 PM EDT [facility] Name Value Range Interpretation Code Description Data Anu rce(s) Supporting Document(s) &PDF [facility] VVPUUc8vOkNZWlZw38/POYedHFJyt6ScFKnsQVy1BFdtZHZcK4XwwZsaSLbGA5eEPj2OY5EfWTVIGR5o hdG [file] AgICAgICAgICAgICAgICAgICAgICAgICAgICAgICAgICAgICAgICAgICAgICAgICAgICAgICAgDQogIC AgICAgICAgICAgICAgICAgICAgICAgICAgICAgICAg ICAgICAgICAgICAgICAgICAgICAgICAgICAgICAgICAgICAgICAgICAgICAgICAgICAgICAgICAgICAg ICAgICAgDQogICAgICAgICAgICAgICAgICAgICAgICAgICAgICAgICAgICAgICAgICAgICAgICAgICAg ICAgICAgICAgICAgICAgICAgICAgICAgICAgICAgIC AgICAgICAgICAgICAgICAgDQogICAgICAgICAgICAgICAgICAgICAgICAgICAgICAgICAgICAgICAgIC AgICAgICAgICAgICAgICAgICAgICAgICAgICAgICAgICAgICAgICAgICAgICAgICAgICAgICAgICAgDQ ogICAgICAgICAgICAgICAgICAgICAgICAgICAgICAg ICAgICAgICAgICAgICAgICAgICAgICAgICAgICAgICAgICAgICAgICAgICAgICAgICAgICAgICAgICAg ICAgICAgICAgDQogICAgICAgICAgICAgICAgICAgICAgICAgICAgICAgICAgICAgICAgICAgICAgICAg ICAgICAgICAgICAgICAgICAgICAgICAgICAgICAgIC AgICAgICAgICAgICAgICAgICAgDQogICAgICAgICAgICAgICAgICAgICAgICAgICAgICAgICAgICAgIC AgICAgICAgICAgICAgICAgICAgICAgICAgICAgICAgICAgICAgICAgICAgICAgICAgICAgICAgICAgIC AgDQogICAgICAgICAgICAgICAgICAgICAgICAgICAg ICAgICAgICAgICAgICAgICAgICAgICAgICAgICAgICAgICAgICAgICAgICAgICAgICAgICAgICAgICAg ICAgICAgICAgICAgDQogICAgICAgICAgICAgICAgICAgICAgICAgICAgICAgICAgICAgICAgICAgICAg ICAgICAgICAgICAgICAgICAgICAgICAgICAgICAgIC AgICAgICAgICAgICAgICAgICAgICAgDQogICAgICAgICAgICAgICAgICAgICAgICAgICAgICAgICAgIC AgICAgICAgICAgICAgICAgICAgICAgICAgICAgICAgICAgICAgICAgICAgICAgICAgICAgICAgICAgIC JmUWLmDFb7I8lnYTTaHIFaPP2gEWc8Bb7+DQoNCmVu TPI3dmArsW4BEK9es8IqBGxcXSAxw8ExQHt3UN3EUVGcHKqmFU8UABqjnb8BORAvSGCitRCFp8sdRcDs KBL2PKGsYrxeQF1IMBAaT9dpsnBqBDHiMSBHXWegHFVHKN1GYkIlB8AygR35BJVIYc0+DQplbmRvYmoN EyFxAKBcj7HwWBt0QE7QEQYzKEabCX2VKRUclM1jXF uvLT0OMgMjZIGfXRFSRuFyF55gtZFdEVb2W9DoSiKuGWFrBkgmHVMzWQouZoKhIRKrPrYmLDtjBQ8+ID 4+ZWxeED6SJVztjtHwTZCvXn0FPKDsJTM2EIUqmSPtNjQiPPLLCAtbOM4WmLJsEGB3nB6lUHjlSSFjNZ OaA4hAXpNpzTsyQU22bDpnmcLgqVYqUPh+Xh8PIE2g h1BvTUd7tqWwGInrXTKwDHgmWSMiRFCtHKNoYSU6LSH6XYWUTmSkRXZyEOLyMIriIMFrCJLxbr1AKOGq JKOgRJG8PBKxAQDcIGVpDGbyIYDpPPCiJzH0DCMjFUUeWU5AQyTiECUeCJGkOFHnFTGwEWPlal3RJJLz IOUlRuhkGrSaTBRnCISvBHyiXMFiFZI4FZN7DYQdXF YhGF1LCyImUWZqUFJ0IOUzBPHwXNLsoh6GDHWqXPCbOabyGcVkNDKiHAQoJPowHODnRXJ0Gct3XYPsEW TgED7RArHeCZNdSLp2CoRaFXOmISAoru1CCGGcMCYpUHY7LsBdMUAaIHFwMUkbPAPuUFT3WLJqRGBzUM AfZB1YSrZlHHOyMOxyGFJfTRTrOSFjxx0POCWlHIAi NWKhDrWpRSSdMSJlOIrrHNSjDESrGcQzOCKsCMXdPO3LAmEcBRPrXBJ7UmPjNPQgVOJtqo6BKXCgVJNj YEi0MkEfJQLuOKAuGEznAIQgPSC6ASS1RODeKWSpHF9DUsBzUGKbSAf7MBZmJPKdTQTpwz3HSPHdGYDx HTy2XcQoBADgTCElOVslLVQgZHKiIqHaZTFjRTVhBB 6XKwJyFPyoIOXUGqd9IHraM1s3QZBpHg5IG9Fhz2JsMsSrYOGKUAmjQS4spsXrKHFeIj3HN5cRZomhMC xrLoZnZbSxWARhJhZkVmF2BQhbDBZ1MOIrNZA0FQ4lMQElMRZkLgMfADF3KGBiZBNjSscwPEJ9TnZnPk IzUauqJlEyRC1OPg7DKhP7WSQ8tGMeYx9PMlT9MLhDUlAuDV2LAZg= ID Date Data Source [id number] 06/29/2020 01:56:00 PM EDT [facility] ([facility]) Name Value Range Interpretation Code Description Data Anu rce(s) Supporting Document(s) Urea nitrogen [Mass/volume] in Serum or Plasma 34 mg/dL 7-18 [facility] ([facility]) Glucose [Mass/volume] in Serum or Plasma 203 mg/dL 74-99 [facility] ([facility]) 100-125 mg/dL PRE-DIABETES/FASTING >126 mg/dL DIABETES/FASTING Creatinine 1.4 mg/dL 0.6-1.3 [facility] ([facility]) Sodium [Moles/volume] in Serum or Plasma 135 meq/L 136-145 [facility] ([facility]) Potassium [Moles/volume] in Serum or Plasma 4.1 meq/L 3.5-5.1 [facility] ([facility]) Chloride [Moles/volume] in Serum or Plasma 100 meq/L 98-107 [facility] ([facility]) Carbon dioxide, total [Moles/volume] in Serum or Plasma 28 meq/L 21 -32 [facility] ([facility]) Calcium [Mass/volume] in Serum or Plasma 8.9 mg/dL 8.5-10.1 [facility] ([facility]) Glomerular filtration rate/1.73 sq M pre dicted among blacks [Volume Rate/Area] in Serum or Plasma by Creatinine-based formula (MDRD) 60 mL/min [facility] <content>CHRONIC KIDNEY DISEASE STAGING PER NKF</content>
<content></content>
<content>STAGE I & II GFR >= 60 NORMAL TO MILDLY DECREASED</content>
<content>STAGE III GFR 30-59 MODERATELY DECREASED</content>
<content>STAGE IV GFR 15-29 SEVERELY DECREASED</content>
<content>STAGE V GFR <15 VERY LITTLE GFR LEFT</content>
<content>ESRD GFR <15 ON PARTY SUPPLY SPECIALIST</content>
<content></content> Glomerular filtration rate/1.73 sq M pre dicted among non-blacks [Volume Rate/Area] in Serum or Plasma by Creatinine-based formula (MDRD) 49 mL/min [facility] ([facility] ID Date Data Source [id number] 06/29/2020 01:56:00 PM EDT [facility] ([facility]) Name Value Range Interpretation Code Description Data Anu rce(s) Supporting Document(s) Magnesium 2.1 mg/dL 1.8-2.4 [facility] ([facility]) ID Date Data Source [id number] 06/29/2020 01:56:00 PM EDT [facility] ([facility] Name Value Range Interpretation Code Description Data Anu rce(s) Supporting Document(s) Hemoglobin [Mass/volume] in Blood 11.8 g/dL 12.0-18.0 [facility] ([facility] Leukocytes [#/volume] in Blood by Automated count 7.4 x10*3/UL 4.1-10 .9 [facility] ([facility] NOTE: RESULT VERIFIED. Erythrocytes [#/volume] in Blood by Automated count 4.75 x10*6/UL 4.2 0-6.30 [facility] ([facility] MCH 24.9 pg 26.0-32.0 [facility] ([facility]) MCV 78.4 fL 80.0-97.0 [facility] ([facility]) Hematocrit [Volume Fraction] of Blood by Automated count 37.3 % 3 7.0-51.0 [facility] ([facility] Erythrocyte distribution width [Ratio] by Automated count 16.3 % 11.6-13.7 [facility] ([facility] MCHC 31.8 g/dL 31.0-38.0 [facility] ([facility]) Platelets [#/volume] in Blood by Automated count 281 x10*3/UL 140-440 [facility] ([facility] MPV 8.7 FL 7.8-11.0 [facility] ([facility]) Neut % 73.7 % 37.0-92.0 [facility] ([facility]) Mid % 7.8 % 1.7-9.3 [facility] Lymph % 18.5 % 10.0-58.5 [facility]) Neut # 5.5 x10*3/UL 2.0-7.8 [facility] ([facility]) Lymph # 1.3 x10*3/UL 0.6-4.1 [facility] ([facility]) Mid # 0.6 x10*3/UL 0.1-0.6 [facility] ([facility]) ID Date Data Source [id number] 06/29/2020 01:29:00 PM EDT [facility] ([facility]) Name Value Range Interpretation Code Description Data Anu rce(s) Supporting Document(s) INR in Platelet poor plasma by Coagulation assay 1.2 [facility] ([facility]) ID Date Data Source [id number] 06/13/2020 11:47:00 AM EDT [facility] ([facility]) Name Value Range Interpretation Code Description Data Anu rce(s) Supporting Document(s) INR in Platelet poor plasma by Coagulation assay 5.9 [facility] ([facility]) ID Date Data Source [id number] 06/05/2020 12:21:00 PM EDT [facility] ([facility]) Name Value Range Interpretation Code Description Data Anu rce(s) Supporting Document(s) Microalbumin Urine 84.8 mg/L 1.3-20.0 [facility] ([facility]) COLLECTED AT HOME Microalb/Creat Ratio 95.4 ug/mg 0.0-30.0 [facility] ( [facility]) COLLECTED AT HOME Urine Creatinine 88.9 mg/dL 30.0-125.0 [facility] ([facility]) COLLECTED AT HOME ID Date Data Source [id number] 06/05/2020 12:17:00 PM EDT [facility] ([facility]) Name Value Range Interpretation Code Description Data Anu rce(s) Supporting Document(s) INR in Platelet poor plasma by Coagulation assay 4.4 [facility] ([facility]) ID Date Data Source [id number] 05/29/2020 12:14:00 PM EDT [facility] ([facility]) Name Value Range Interpretation Code Description Data Anu rce(s) Supporting Document(s) INR in Platelet poor plasma by Coagulation assay 2.8 [facility] ([facility]) ID Date Data Source [id number] 05/25/2020 03:32:00 PM EDT [facility] ([facility]) Name Value Range Interpretation Code Description Data Anu rce(s) Supporting Document(s) INR in Platelet poor plasma by Coagulation assay 6.5 [facility] ([facility]) ID Date Data Source [id number] 05/25/2020 02:58:00 PM EDT [facility] ([facility] Name Value Range Interpretation Code Description Data Anu rce(s) Supporting Document(s) Iron (Fe) 37 ug/dL 65-175 [facility] [place] [facility]) Total Iron Binding Capacity 397 ug/dL 250-450 ME DENT ([facility]) Percent Saturation 9.3 % 19.7-50.0 [facility] ([facility]) ID Date Data Source [id number] 05/25/2020 02:58:00 PM EDT [facility] ([facility] Name Value Range Interpretation Code Description Data Anu rce(s) Supporting Document(s) Cobalamin (Vitamin B12) [Mass/volume] in Serum or Plasma 501 pg/mL 2 47-911 [facility] ([facility]) VITAMIN B12 NORMAL RANGE NORMAL 247 - 911 PG/ML INDETERMINATE 211 - 246 PG/ML DEFICIENT LESS THAN 211 PG/ML Ferritin [Mass/volume] in Serum or Plasma 29 ng/mL 26-388 [facility] ([facility] <content>note:<nlbl:demographic_changed></content>
<content>note:<nlbl:demog raphic_changed></content>
<content>note:<nlbl:demographic_changed></content>
<content> note:<nlbl:demographic_changed>note:<nlbl:demographic_changed></content>
<co ntent></content> ID Date Data Source [id number] 05/25/2020 02:58:00 PM EDT [facility] ([facility] Name Value Range Interpretation Code Description Data Anu rce(s) Supporting Document(s) Prothrombin Time 44.6 s 11.8-14.0 [facility] ([facility]) Inr 4.61 [facility] ([place] [facility] THERAPUTIC HUMAN INR VALUES INDICATIONS NORMAL RANGES PROPHYLAXIS/TREATMENT OF: VENOUS THROMBOSIS 2.0-3.0 PULMONARY EMBOLISM 2.0-3.0 PREVENTION OF SYSTEMIC EMBOLISM FROM: TISSUE HEART VALVES 2.0-3.0 ACUTE MYOCARDIAL INFARCTION 2.0-3.0 VALVULAR HEART DISEASE 2.0-3.0 ATRIAL FIBRILLATION 2.0-3.0 MECHANICAL VALVES(HIGH RISK) 2.5-3.5 RECURRENT MYOCARDIAL INFARCTION 2.5-3.5 ID Date Data Source [id number] 05/25/2020 02:58:00 PM EDT [facility] Name Value Range Interpretation Code Description Data Anu rce(s) Supporting Document(s) Carcinoembryonic Ag [Mass/volume] in Serum or Plasma 1.1 ng/mL [facility] ([facility]) THE CEA ASSAY IS PERFORMED ON THE [place] BY CHEMILUMINESCENCE AND SHOULD NOT BE COMPARED INTERCHANGEABLY WITH OTHER METHODS. IT SHOULD NOT BE USED ALONE A SCREENING TEST OR DIAGNOSIS FOR THE PRESENCE OR ABSENCE OF MALIGNANT DISEASE. PREDICTIONS OF DISEASE RECURRENCE SHOULD NOT BE BASED SOLELY ON VALUES OBTAINED FROM SERIAL PATIENT SERUM VALUES. ID Date Data Source [id number] 05/25/2020 02:58:00 PM EDT [facility] ([facility] Name Value Range Interpretation Code Description Data Anu rce(s) Supporting Document(s) Carcinoembryonic Ag [Mass/volume] in Serum or Plasma Laboratory valery t result [facility] ([facility] ID Date Data Source [id number] 05/25/2020 02:57:00 PM EDT [facility] ([facility]) Name Value Range Interpretation Code Description Data Anu rce(s) Supporting Document(s) Erythrocytes [#/volume] in Blood by Automated count 4.22 x10*6/UL 4.2 0-6.30 [facility] ([facility] Leukocytes [#/volume] in Blood by Automated count 9.2 x10*3/UL 4.1-10 .9 [facility] Hematocrit [Volume Fraction] of Blood by Automated count 33.1 % 3 7.0-51.0 [facility] MCV 78.4 fL 80.0-97.0 [facility] ([facility]) Hemoglobin [Mass/volume] in Blood 10.6 g/dL 12.0-18.0 [facility] ([facility] NOTE: RESULT VERIFIED. Platelets [#/volume] in Blood by Automated count 266 x10*3/UL 140-440 [facility] ([facility] MCHC 32.2 g/dL 31.0-38.0 [facility] ([facility]) Erythrocyte distribution width [Ratio] by Automated count 15.5 % 11.6-13.7 [facility] ([facility]) MCH 25.2 pg 26.0-32.0 [facility] ([facility]) Lymph % 17.0 % 10.0-58.5 [facility] ([facility]) MPV 8.3 FL 7.8-11.0 [facility] ([facility]) Mid % 5.3 % 1.7-9.3 [facility] ([facility]) Lymph # 1.5 x10*3/UL 0.6-4.1 [facility] ([facility]) Mid # 0.6 x10*3/UL 0.1-0.6 [facility] ([facility]) Neut % 77.7 % 37.0-92.0 [facility] ([facility]) Neut # 7.1 x10*3/UL 2.0-7.8 [facility] ([facility]) ID Date Data Source [id number] 05/25/2020 02:57:00 PM EDT [facility] ([facility] Name Value Range Interpretation Code Description Data Anu rce(s) Supporting Document(s) Hemoglobin A1c/Hemoglobin.total in Blood 7.2 g/dL 4.8-5.6 [facility] ([facility] Lab Result Notes: Pre-Diabetes 5.7 - 6.4 % Diabetes = or > 6.5% Glucose mean value [Mass/volume] in Blood Estimated fr om glycated hemoglobin 160 mg/dL 60-110 [facility] ([facility] ) ID Date Data Source [id number] 05/25/2020 02:57:00 PM EDT [facility] ([facility]) Name Value Range Interpretation Code Description Data Anu rce(s) Supporting Document(s) Glucose [Mass/volume] in Serum or Plasma 133 mg/dL 74-99 [facility] ([facility]) 100-125 mg/dL PRE-DIABETES/FASTING >126 mg/dL DIABETES/FASTING Sodium [Moles/volume] in Serum or Plasma 140 meq/L 136-145 [facility] ([facility]) Urea nitrogen [Mass/volume] in Serum or Plasma 23 mg/dL 7-18 [facility] ([facility]) Creatinine 1.1 mg/dL 0.6-1.3 [facility] ([facility]) Chloride [Moles/volume] in Serum or Plasma 106 meq/L 98-107 [facility] ([facility]) Potassium [Moles/volume] in Serum or Plasma 4.6 meq/L 3.5-5.1 [facility] ([facility]) Carbon dioxide, total [Moles/volume] in Serum or Plasma 24 meq/L 21 -32 [facility] ([facility]) Total Bilirubin 0.8 mg/dL 0.2-1.0 [facility] ([facility]) Calcium [Mass/volume] in Serum or Plasma 8.5 mg/dL 8.5-10.1 [facility] ([facility]) Alkaline phosphatase isoenzyme [Units/volume] in Serum or Pl asma 71 mg/dL 46-116 [facility] ([facility]) Alanine aminotransferase [Enzymatic activity/volume] in Seru m or Plasma 30 U/L 12-78 [facility] ([facility]) Albumin [Mass/volume] in Serum or Plasma 3.3 g/dL 3.4-5.0 [facility] ([facility]) Proteinase 3 Ab [Units/volume] in Serum 7.1 g/dL 6.4-8.2 [facility] ([facility]) Aspartate aminotransferase [Enzymatic activity/volume] in Serum or Plasma 18 U/L 15-37 [facility] ([facility] ) A/G Ratio 0.87 CALC 1.00-1.90 [facility] ([facility] [place] [facility]) Glomerular filtration rate/1.73 sq M pre dicted among non-blacks [Volume Rate/Area] in Serum or Plasma by Creatinine-based formula (MDRD) Laboratory test result [facility] ([facility] ) Glomerular filtration rate/1.73 sq M pre dicted among blacks [Volume Rate/Area] in Serum or Plasma by Creatinine-based formula (MDRD) Laboratory test result [facility] ([facility] <content>CHRONIC KIDNEY DISEASE STAGING PER NKF</content>
<content></content>
<content>STAGE I & II GFR >= 60 NORMAL TO MILDLY DECREASED</content>
<content>STAGE III GFR 30-59 MODERATELY DECREASED</content>
<content>STAGE IV GFR 15-29 SEVERELY DECREASED</content>
<content>STAGE V GFR <15 VERY LITTLE GFR LEFT</content>
<content>ESRD GFR <15 ON PARTY SUPPLY SPECIALIST</content>
<content></content> ID Date Data Source [id number] 05/25/2020 02:57:00 PM EDT [facility] ([facility]) Name Value Range Interpretation Code Description Data Anu rce(s) Supporting Document(s) Cholesterol [Mass/volume] in Serum or Plasma 98 mg/dL 131-200 [facility] ([facility]) Triglyceride [Mass/volume] in Serum or Plasma 48 mg/dL 30-150 [facility] ([facility]) Cholesterol in LDL [Mass/volume] in Serum or Plasma by calcu lation 44 CALC 50-159 [facility] ([facility]) Cholesterol in HDL [Mass/volume] in Serum or Plasma 44 mg/dL 35-60 [facility] ([facility]) ID Date Data Source [id number] 05/25/2020 02:57:00 PM EDT [facility] ([facility] Name Value Range Interpretation Code Description Data Anu rce(s) Supporting Document(s) Thyrotropin [Units/volume] in Serum or Plasma by Detec tion limit <= 0.05 mIU/L 3.05 uIU/mL 0.36-3.74 [facility] ([facility] ) ID Date Data Source [id number] 05/25/2020 02:57:00 PM EDT [facility] ([facility]) Name Value Range Interpretation Code Description Data Anu rce(s) Supporting Document(s) Magnesium 1.5 mg/dL 1.8-2.4 [facility] ([facility]) NOTE: RESULT VERIFIED. ID Date Data Source [id number] 05/25/2020 02:57:00 PM EDT [facility] ([facility]) Name Value Range Interpretation Code Description Data Anu rce(s) Supporting Document(s) Hemoglobin A1c/Hemoglobin.total in Blood Laboratory test result [facility] ([facility]) Procedure Social History Code Duration Value Status Description Data Source(s ) Smoking 04/30/2021 12:00:00 AM EDT Patient has never smoked co mpleted Patient has never smoked [facility] ([facility] Smoking 02/08/2021 12:00:00 AM EDT Patient has never smoked co mpleted Patient has never smoked [facility] ([facility], ) Vital Signs ID Date Data Source [id number] Name Value Range Interpretation Code Description Data Source(s) Systolic blood pressure 128 mm[Hg] 128 mm[Hg] M [facility] ([facility] Diastolic blood pressure 70 mm[Hg] 70 mm[Hg] [facility] ([facility] Respiratory rate 17 /min 17 /min [facility] ( [facility] Body height 64.0 [in_i] 64.0 [in_i] [facility] ([facility] 5'4" [place] body weight 130 [lb_av] 130 [lb_av] [facility] ([facility] Heart rate 84 /min 84 /min [facility] ([facility] Body temperature 97.8 [degF] 97.8 [degF] [facility] ([facility] Body weight 181.38 [lb_av] 181.38 [lb_av] [facility] ([facility] Oxygen saturation in Arterial blood by Pulse oximetry 98 % 98 % [facility] ([facility] Body mass index (BMI) [Ratio] 31.1 kg/m2 31.1 k g/m2 [facility] ([facility] Systolic blood pressure 122 mm[Hg] 122 mm[Hg] [facility] ([facility]) Oxygen saturation in Arterial blood by Pulse oximetry 96 % 96 % [facility] ([facility]) Room Air Diastolic blood pressure 82 mm[Hg] 82 mm[Hg] [facility] ([facility]) Heart rate 79 /min 79 /min [facility] ([facility]) Body height 65 [in_i] 65 [in_i] [facility] ([facility]) 5'5" [place] body weight 136 [lb_av] 136 [lb_av] [facility] ([facility]) Systolic blood pressure 130 mm[Hg] 130 mm[Hg] [facility] ([facility]) Diastolic blood pressure 88 mm[Hg] 88 mm[Hg] [facility] ([facility]) Heart rate 84 /min 84 /min [facility] ([facility]) Body surface area Derived from formula 1.89 m2 1.89 m2 [facility] ([facility]) Oxygen saturation in Arterial blood by Pulse oximetry 96 % 96 % [facility] ([facility]) Body temperature 97.0 [degF] 97.0 [degF] [facility] ([facility]) Body height 65 [in_i] 65 [in_i] [facility] ([facility]) 5'5" Body weight 179.00 [lb_av] 179.00 [lb_av] [facility] ([facility]) Body mass index (BMI) [Ratio] 29.8 kg/m2 29.8 k g/m2 [facility] ([facility]) [place] body weight 136 [lb_av] 136 [lb_av] [facility] ([facility]) Body weight 81.194 kg 81.194 kg [facility] ([facility]) Body height 65 [in_i] 65 [in_i] [facility] ([facility]) 5'5" Body weight 183.00 [lb_av] 183.00 [lb_av] [facility] ([facility]) Body mass index (BMI) [Ratio] 30.4 kg/m2 30.4 k g/m2 [facility] ([facility]) [place] body weight 136 [lb_av] 136 [lb_av] [facility] ([facility]) Body weight 83.009 kg 83.009 kg [facility] ([facility]) Body surface area Derived from formula 1.90 m2 1.90 m2 [facility] ([facility]) Systolic blood pressure 102 mm[Hg] 102 mm[Hg] [facility] ([facility]) Body height 65 [in_i] 65 [in_i] [facility] ([facility]) 5'5" Body weight 183.00 [lb_av] 183.00 [lb_av] [facility] ([facility]) Body weight 83.009 kg 83.009 kg [facility] ([facility]) Body mass index (BMI) [Ratio] 30.4 kg/m2 30.4 k g/m2 [facility] ([facility]) [place] body weight 136 [lb_av] 136 [lb_av] [facility] ([facility]) Diastolic blood pressure 78 mm[Hg] 78 mm[Hg] [facility] ([facility]) Heart rate 69 /min 69 /min [facility] ([facility]) Oxygen saturation in Arterial blood by Pulse oximetry 96 % 96 % [facility] ([facility]) Body surface area Derived from formula 1.90 m2 1.90 m2 [facility] ([facility]) Body weight 207.00 [lb_av] 207.00 [lb_av] [facility] ([facility]) Systolic blood pressure 100 mm[Hg] 100 mm[Hg] [facility] ([facility]) Heart rate 76 /min 76 /min [facility] ([facility]) Diastolic blood pressure 60 mm[Hg] 60 mm[Hg] [facility] ([facility]) Body weight 207.00 [lb_av] 207.00 [lb_av] [facility] Systolic blood pressure 120 mm[Hg] 120 mm[Hg] [facility] ([facility]) Diastolic blood pressure 60 mm[Hg] 60 mm[Hg] [facility] ([facility]) Heart rate 78 /min 78 /min [facility] ([facility]) Body weight 206.00 [lb_av] 206.00 [lb_av] [facility] ([facility]) Systolic blood pressure 122 mm[Hg] 122 mm[Hg] [facility] ([facility]) Diastolic blood pressure 66 mm[Hg] 66 mm[Hg] [facility] ([facility]) Heart rate 76 /min 76 /min [facility] ([facility]) Body weight 204.00 [lb_av] 204.00 [lb_av] [facility] Oxygen saturation in Arterial blood by Pulse oximetry 99 % 99 % [facility] ([facility]) Body weight 192.00 [lb_av] 192.00 [lb_av] [facility] Body height 54 [in_i] 54 [in_i] [facility] ([facility]) 4'6" Body mass index (BMI) [Ratio] 46.5 kg/m2 46.5 k g/m2 [facility] ([facility]) Systolic blood pressure 122 mm[Hg] 122 mm[Hg] [facility] ([facility]) Oxygen saturation in Arterial blood by Pulse oximetry 98 % 98 % [facility] ([facility]) Body weight 193.00 [lb_av] 193.00 [lb_av] [facility] Diastolic blood pressure 74 mm[Hg] 74 mm[Hg] [facility] ([facility]) Heart rate 122 /min 122 /min [facility] ([facility])
--- OUTSIDE RECORDS SUMMARY | 2021-07-21 11:29 | CCD ---
Author Author [facility] Organization [facility] Address Unknown Phone Unavailable Care Team Providers Care Replanting Machine Operator Name Role Phone Christi Finnegan MD Unavailable [...] Wendy, Lynn DO Unavailable Unavailable Pleskach, Lesli DATA PROGRAMMER Unavailable Unavailable Pleskach, Lesli DATA PROGRAMMER Unavailable Unavailable Pleskach, Lesli DATA PROGRAMMER Unavailable Unavailable Pleskach, Lesli DATA PROGRAMMER Unavailable Unavailable Pleskach, Lesli DATA PROGRAMMER Unavailable Unavailable Pleskach, Lesli DATA PROGRAMMER Unavailable Unavailable Pleskach, Lesli DATA PROGRAMMER Unavailable Unavailable Pleskach, Lesli DATA PROGRAMMER Unavailable Unavailable Pleskach, Lesli DATA PROGRAMMER Unavailable Unavailable Pleskach, Lesli DATA PROGRAMMER Unavailable Unavailable Pleskach, Lesli DATA PROGRAMMER Unavailable Unavailable Pleskach, Lesli DATA PROGRAMMER Unavailable Unavailable Pleskach, Lesli DATA PROGRAMMER Unavailable Unavailable Pleskach, Lesli DATA PROGRAMMER Unavailable Unavailable Pleskach, Lesli DATA PROGRAMMER Unavailable Unavailable Pleskach, Lesli DATA PROGRAMMER Unavailable Unavailable Pleskach, Lesli DATA PROGRAMMER Unavailable Unavailable Pleskach, Lesli DATA PROGRAMMER Unavailable Unavailable Pleskach, Lesli DATA PROGRAMMER Unavailable Unavailable Pleskach, Lesli DATA PROGRAMMER Unavailable Unavailable Pleskach, Lesli DATA PROGRAMMER Unavailable Unavailable Pleskach, Lesli DATA PROGRAMMER Unavailable Unavailable Pleskach, Lesli DATA PROGRAMMER Unavailable Unavailable Pleskach, Lesli DATA PROGRAMMER Unavailable Unavailable Pleskach, Lesli DATA PROGRAMMER Unavailable Unavailable Pleskach, Lesli DATA PROGRAMMER Unavailable Unavailable Pleskach, Lesli DATA PROGRAMMER Unavailable Unavailable Pleskach, Lesli DATA PROGRAMMER Unavailable Unavailable Pleskach, Lesli DATA PROGRAMMER Unavailable Unavailable Pleskach, Lesli DATA PROGRAMMER Unavailable Unavailable Pleskach, Lesli DATA PROGRAMMER Unavailable Unavailable Pleskach, Lesli DATA PROGRAMMER Unavailable Unavailable Pleskach, Lesli DATA PROGRAMMER Unavailable Unavailable Pleskach, Lesli DATA PROGRAMMER Unavailable Unavailable Pleskach, Lesli DATA PROGRAMMER Unavailable Unavailable Pleskach, Lesli DATA PROGRAMMER Unavailable Unavailable Pleskach, Lesli DATA PROGRAMMER Unavailable Unavailable Pleskach, Lesli DATA PROGRAMMER Unavailable Unavailable Pleskach, Lesli DATA PROGRAMMER Unavailable Unavailable Pleskach, Lesli DATA PROGRAMMER Unavailable Unavailable Pleskach, Lesli DATA PROGRAMMER Unavailable Unavailable Pleskach, Lesli DATA PROGRAMMER Unavailable Unavailable Selkirk, V NADIA PA-C Unavailable Unavailable Selkirk, V NADIA PA-C Unavailable Unavailable Kaylyn, V NADIA PA-C Unavailable Unavailable Selkirk, V NADIA PA-C Unavailable Unavailable Selkirk, V NADIA PA-C Unavailable Unavailable Kaylyn, V NADIA PA-C Unavailable Unavailable Kaylyn, V NADIA PA-C Unavailable Unavailable Kaylyn, V NADIA PA-C Unavailable Unavailable Selkirk, V NADIA PA-C Unavailable Unavailable Selkirk, V NADIA PA-C Unavailable Unavailable Selkirk, V NADIA PA-C Unavailable Unavailable Selkirk, V NADIA PA-C Unavailable Unavailable Selkirk, V NADIA PA-C Unavailable Unavailable Selkirk, V NADIA PA-C Unavailable Unavailable Wendy, Lynn [...] is protected by Article 27-F of the [facility] Public Health law. If you continue you may have access to information: Regarding HIV / AIDS; Provided by facilities licensed or operated by the [facility] Office of Mental Health; or Provided by the [facility] Office for People With Developmental Disabilities. If such information is present, then the following [facility] mandated warning applies: This information has been [...] law may result in a fine or fpc sentence or both. A general authorization for the release of medical or other information is NOT sufficient authorization for further disc losure. Family History Family Member Name Family Member Gender Family Member Status Date o f Status Description Data Source(s) Unknown Male Problem [facility] ([facility], ) Encounters Encounter Providers Location Date Indications Data Source(s ) Outpatient Attender: Lesli Mejia [facility] Main Office 05/15/2021 1 1:30:00 AM EDT [facility] ([facility] Outpatient Attender: Lesli Jackie [facility] Main Office 04/30/2021 0 1:45:00 PM EDT [facility] ([facility] Outpatient Attender: ROEGRS SCHULTZ Lew/Ramsey/Yefri/Rein dl 03/20/2021 12:30:00 PM EDT MED[facility] ([facility] Outpatient Attender: ROGERS SCHULTZ Lew/Ramsey/Yefri/Rein dl 02/08/2021 03:00:00 PM EDT MED[facility] ([facility]) Outpatient Attender: Arya Finnegan MD Lew/Ramsey/Yefri/Re indl 01/26/2021 10:30:00 AM EDT MED[facility] ([facility]) Outpatient Attender: ROGERS SCHULTZ Lew/Ramsey/Yefri/Rein dl 01/15/2021 01:00:00 PM EDT [facility] ([facility]) [place] [address] [address] 09/25/2020 12:00:00 AM EST eCW1 ([facility]) Outpatient [id number] 08/22/2020 02:45:14 PM EST [facility] Outpatient Attender: NADIA KISER.JMA-SJPJenniferJAM 06/2020 12:00:00 AM EST - 08/14/2020 04:31:55 PM EST [facility] [place] [address] [address] 07/17/2020 12:00:00 AM EDT [facility] [place] [address] [facility] [address] 07/14/2020 12:00:00 AM EDT [facility] [place] [address] [address] 07/13/2020 12:00:00 AM EDT eCW1 ([facility]) [place] [address] [facility] [address] 07/13/2020 12:00:00 AM EDT eCW1 ([facility]) Out[place] [address] [facility] [address] 07/06/2020 12:00:00 AM EDT eCW1 ([facility]) Outpatient WOJCIECH 07/04/2020 05:12:54 PM EDT [facility] Outpatient Referrer: Lynn ADHIKARI 07/04/2020 12 :00:00 AM EDT [facility] Outpatient Attender: Lynn Kuhn 06/29 01:15:00 PM EDT MEDENT ([facility] ) Outpatient Attender: Lynn Kuhn 06/08 02:30:00 PM EDT MED[facility] ([facility] ) Immunizations Vaccine Date Status Description Data Source(s) COVID-19 VACCINE Moderna 12/17/2020 12:00:00 AM EST completed [facility] Vaccine Series Complete: YESThis Data wa s Submitted to [facility] Via [employer]. Moderna Sars-(Covid-19) vaccine, mRNA, LNP-S, PF, 100 mcg/ 0.5 mL 12/16/2020 11:00:00 PM EST completed [facility] COVID-19 VACCINE Moderna 11/19/2020 12:00:00 AM EST completed [facility] Vaccine Series Complete: NOThis Data was Submitted to [facility] Via [employer]. Moderna Sars-(Covid-19) vaccine, mRNA, LNP-S, PF, 100 mcg/ 0.5 mL 11/18/2020 11:00:00 PM EST completed [facility] Medications Medication Brand Name Start Date Product Form Dose Route Admi nistrative Instructions Pharmacy Instructions Status Indications Reaction Description Data Source(s) Covid-19 vaccine, Unspecified 12/17/2020 12:00:00 AM EST completed MED[facility] ([facility], ) Medication administered onsite Covid-19 vaccine, Unspecified 11/19/2020 12:00:00 AM EST completed MED[facility] ([facility], ) Medication administered onsite apixaban 5 MG Oral Tablet [Eliquis] Eliquis 06/30/2020 12:00:00 AM E DT ORAL active MED[facility] ([facility]) Melatonin 10 MG Oral Tablet Melatonin 06/29/2020 12:00:00 AM EDT ORAL active MED[facility] ([facility]) tizanidine 4 MG Oral Tablet Tizanidine HCL 06/20/2020 12:00:00 AM EDT ORAL active MED[facility] ([facility]) Potassium Chloride 10 MEQ Extended Release Oral Capsul e [Klor-Con] Klor-Con Sprinkle 06/08/2020 12:00:00 AM EDT ORAL completed MED[facility] ([facility]) Spironolactone 25 MG Oral Tablet Spironolactone 06/08/2020 12:00:00 A M EDT ORAL active MED[facility] ([facility]) Lisinopril 5 MG Oral Tablet Lisinopril 06/05/2020 12:00:00 AM EDT ORAL active [facility] ([facility]) torsemide 20 MG Oral Tablet Torsemide 06/05/2020 12:00:00 AM EDT ORAL active MED[facility] ([facility]) Albuterol 0.21 MG/ML Inhalant Solution Albuterol Sulfate 0 05/29/2020 12:00:00 AM EDT completed MED[facility] ([facility]) Trazodone Hydrochloride 100 MG Oral Tablet Trazodone HCL 05/29/2020 12:00:00 AM EDT ORAL active [facility] ([facility]) Albuterol 0.833 MG/ML / Ipratropium [place] 0.167 MG/M L Inhalant Solution Ipratropium [place]/Albuterol Sulfate 05/29/2020 12:00:00 AM EDT active MEDENT ([facility]) Albuterol 1 MG/ML Inhalant Solution Albuterol Sulfate 05/07 12:00:00 AM EDT completed MED[facility] ([facility]) Mirtazapine 15 MG Oral Tablet Mirtazapine 05/25/2020 12:00:00 AM EDT ORAL completed [facility] ([facility]) Donepezil hydrochloride 10 MG Oral Tablet Donepezil HCL 05/25/2020 12:00:00 AM EDT ORAL completed [facility] ([facility]) Tamsulosin hydrochloride 0.4 MG Oral Capsule Tamsulosin HCL 05/25/2020 12:00:00 AM EDT active MED[facility] ([facility]) tizanidine 4 MG Oral Capsule Tizanidine HCL 05/25/2020 12:00:00 AM EDT ORAL completed MED[facility] ([facility]) Metformin hydrochloride 500 MG Oral Tablet Metformin HCL 05/25/2020 12:00:00 AM EDT ORAL active MED[facility] ([facility]) ferrous sulfate 325 MG Oral Tablet Ferrousul 05/25/2020 12:00:00 AM EDT ORAL active MED[facility] ([facility]) pantoprazole 40 MG Delayed Release Oral Tablet Pantoprazole Sodium 05/25/2020 12:00:00 AM EDT ORAL active M EDENT ([facility]) Warfarin Sodium 2.5 MG Oral Tablet Warfarin Sodium 05/25/2020 12:00 :00 AM EDT completed MEDENT ([facility]) Aspirin 81 MG Chewable Tablet Aspirin Childrens 05/25/2020 12:00:00 A M EDT ORAL active MED[facility] ([facility]) atorvastatin 20 MG Oral Tablet Atorvastatin Calcium 05/25/2020 1 2:00:00 AM EDT ORAL active MED[facility] ( [facility]) 24 HR metoprolol succinate 25 MG Extended Release Oral Tablet Metoprolol Succinate ER 05/25/2020 12:00:00 AM EDT ORAL active MED[facility] ([facility]) Magnesium Oxide 400 MG Oral Tablet Magnesium Oxide 05/25/2020 12:00 :00 AM EDT ORAL active MED[facility] ([facility]) 24 HR metoprolol succinate 50 MG Extended Release Oral Tablet Metoprolol Succinate ER 05/25/2020 12:00:00 AM EDT ORAL completed MEDENT ([facility]) Insurance Providers Payer name Policy type / Coverage type Policy ID Covered constitution party ID Covered constitution party's relationship to cordero Policy Cordero Plan Information WORKER'S COMP [id number] [facility] [id number] WORKERS COMPENSATION GENERIC W [id number] Empl [id number] [place] CLAIM MGMT WC W [id number] Empl [id number] WORKERS COMPENSATION GENERIC W [id number] Empl [id number] WORKERS COMPENSATION GENERIC W [id number] Empl [id number] MEDICARE A [id number] Self [id number] MEDICARE [id number] Crystal [id number] A MEDICARE [id number] Crystal [id number] A MEDICARE [id number] Crystal [id number] MEDICARE A [id number] Self [id number] A MEDICARE [id number] SP [id number] A MEDICARE [id number] Crystal [id number] [id number] AMER PROG TODAYS OPTIONS G [id number] Self [id number] HUMANA MEDICARE [id number] Crystal [id number] HUMANA MEDICARE [id number] Crystal [id number] HUMANA MEDICARE [id number] Crystal [id number] AARP U [id number] Self [id number] MEDICARE A [id number] Self [id number] A MEDICARE A [id number] Self [id number] A UHC [id number] Crystal [id number] C [id number] Crystal [id number] AARP HE[employer] CARE OPTIONS [id number] SP [id number] [employer] OPTIONS [id number] SP [id number] [facility] [facility] [place] [id number] 18 [id number] [employer] Options Commercial [id number] Self [id number] [employer] Options Commercial [id number] Self [id number] [employer]ANJ[employer] CLAIM SERVICES O [id number] S [id number] [facility] O [id number] O [id number] TODAYS OPTION -O/P [id number] 18 [id number] [facility] [id number] SP [id number] Today's Options Medicare Commercial .[id number] Self TODAYS OPTIONS/AFGHAN O [id number] S [id number] TODAYS OPTION -PHYSICIAN [id number] TODAYS OPTION -SWING [id number] 18 [id number] TODAYS OPTION -I/P [id number] 18 [id number] [place] CLAIMS -O/P [id number] 18 [id number] [place] CLAIMS -CLINIC [id number] 18 [id number] TODAYS OPTIONS -O/P [id number] 18 [id number] TODAYS OPTIONS -CLINIC [id number] 18 [id number] HUMANA MEDICARE ADVANTAGE [id number] 18 [id number] HUMANA MEDICARE [id number] 18 [id number] WORKMANS COMPENSATION -O/P [id number] 18 [id number] MEDICARE [id number] SP [id number] WORKERS COMP - CLINIC [id number] 18 [id number] [employer] OPTIONS [id number] SP [id number] A[employer] OPTIONS [id number] SP [id number] TODAYS OPTIONSDO NOT USE [id number] SP [id number] [facility] [id number] SP [id number] AARP O [id number] S [id number] MEDICARE C [id number] S [id number] AARP HEALTH CARE OPTIONS -O/P [id number] 18 [id number] MEDICARE PART A -O/P [id number] 18 [id number] Aarp Medigap Part B [id number] Self [id number] Medicare [place]/N[place] Medicare Primary [id number] Self [id number] TODAYS OPTIONS [id number] SP [id number] Aarp Medigap Part B [id number] Self [id number] Medicare [place]/[facility] Medicare Primary [id number] Self [id number] MEDICARE [id number] SP [id number] A [facility] PI PI MEDICARE PI PI AAR HE[employer] CARE OPTIONS [id number] 18 [id number] MEDICARE PART A [facility] [id number] 18 [id number] Aar Health Care Options [place] Part B [id number] Self 3 [id number] Medicare Part A [place] Medicare Primary [id number] Self 1 [id number] [facility] HEALTH CARE OPTIONS [id number] MEDICARE PART A [facility] [id number] 18 [id number] Problems, Conditions, and Diagnoses No Information Surgeries/Procedures Procedure Description Date Indications Data Source(s) Diabetic Foot Exam 05/15/2021 12:00:00 AM EDT MEDSARBJIT ([facility] OFFICE OUTPATIENT NEW 45 MINUTES 04/30/2021 12:00:00 A M EDT [facility] ([facility] Bronchospasm Evaluation 02/08/2021 12:00:00 AM EDT MEDENT ([facility], ) Plethysmography Determination Lung Volumes & Per Airway Resi st 02/08/2021 12:00:00 AM EDT MEDENT ([facility], ) DIFFUSING CAPACITY 02/08/2021 12:00:00 AM EDT MEDENT ([facility], ) Spirometry 01/15/2021 12:00:00 AM EDT M EDENT ([facility], ) Staple Removal 07/06/2020 12:00:00 AM EDT eCW1 ([facility]) Results ID Date Data Source [id number] 01/15/2021 12:50:00 PM EDT MEDENT ([facility], ) Name Value Range Interpretation Code Description Data Anu rce(s) Supporting Document(s) PDFReport Laboratory test result MEDENT ([facility], ) FVC-Pred 3.34 L MEDENT ([facility]) FVC-Pre 1.68 L MEDENT ([facility]) FVC-%Pred-Pre 50 L MEDENT ([facility]) FVC-LLN 2.54 L MEDENT ([facility]) Fev1-%Pred-Pre 65 L MEDENT ([facility]) Fev1-Pre 1.57 L MEDENT ([facility]) Fev1-Pred 2.37 L MEDENT ([facility]) Fev6-Pred 3.10 L MEDENT ([facility]) Fev1-LLN 1.69 L MEDENT ([facility]) Fev6-%Pred-Pre 54 L MEDENT ([facility]) Fev6-Pre 1.68 L MEDENT ([facility]) Fev6-LLN 2.31 L MEDENT ([facility]) Wkd0oup-Kxjn 72 % MEDENT ([facility]) Azd4yyn-Sdg 93 % MEDENT ([facility]) Qyd1noo-Lxdl 93 % MEDENT ([facility]) Qfg2ggf-%Pred-Pre 128 % MEDENT ([facility]) Pig2wuh-BWK 62 % MEDENT ([facility]) Imd2ven-Tqq 100 % MED[facility] ([facility]) Nrj5kbf-%Pred-Pre 107 % MEDENT ([facility]) FEFMax-Pred 6.51 L/E/sec MEDENT ([facility]) FEFMax-Pre 3.39 L/E/sec MEDENT ([facility]) FEFMax-LLN 4.51 L/E/sec MEDENT ([facility] ) FEFMax-%Pred-Pre 52 L/E/sec MED[facility] ([facility]) Kdl9619-Hrv 2.13 L/E/sec MEDENT ([facility]) Vbk2708-Zwuu 1.67 L/E/sec MEDENT ([facility]) Oxc5938-%Pred-Pre 127 L/E/sec MEDENT ([facility]) Fix8261-WUK 0.29 L/E/sec MEDENT ([facility]) ExpTime-Pre 3.57 sec MEDENT ([facility]) Hag8goj9-Shv 93 % MED[facility] ([facility]) Giu2ktr4-Pbkt 77 % MEDENT ([facility]) Hko8cmk1-%Pred-Pre 121 % MEDENT ([facility]) Fyw0glu5-NEH 68 % MEDENT ([facility]) ID Date Data Source [id number] 07/04/2020 05:03:42 PM EDT [facility] Name Value Range Interpretation Code Description Data Anu rce(s) Supporting Document(s) &PDF [facility] XTPHSc5xUsSPTmJs92/ALJmeQKEhs6WbAEyhUMo5SZsoPKXlT7KjhYdtAOjVE4tJFg7UE8YrPGICDC9s hdG [file] AgICAgICAgICAgICAgICAgICAgICAgICAgICAgICAgICAgICAgICAgICAgICAgICAgICAgICAgDQogIC AgICAgICAgICAgICAgICAgICAgICAgICAgICAgICAg ICAgICAgICAgICAgICAgICAgICAgICAgICAgICAgICAgICAgICAgICAgICAgICAgICAgICAgICAgICAg ICAgICAgDQogICAgICAgICAgICAgICAgICAgICAgICAgICAgICAgICAgICAgICAgICAgICAgICAgICAg ICAgICAgICAgICAgICAgICAgICAgICAgICAgICAgIC AgICAgICAgICAgICAgICAgDQogICAgICAgICAgICAgICAgICAgICAgICAgICAgICAgICAgICAgICAgIC AgICAgICAgICAgICAgICAgICAgICAgICAgICAgICAgICAgICAgICAgICAgICAgICAgICAgICAgICAgDQ ogICAgICAgICAgICAgICAgICAgICAgICAgICAgICAg ICAgICAgICAgICAgICAgICAgICAgICAgICAgICAgICAgICAgICAgICAgICAgICAgICAgICAgICAgICAg ICAgICAgICAgDQogICAgICAgICAgICAgICAgICAgICAgICAgICAgICAgICAgICAgICAgICAgICAgICAg ICAgICAgICAgICAgICAgICAgICAgICAgICAgICAgIC AgICAgICAgICAgICAgICAgICAgDQogICAgICAgICAgICAgICAgICAgICAgICAgICAgICAgICAgICAgIC AgICAgICAgICAgICAgICAgICAgICAgICAgICAgICAgICAgICAgICAgICAgICAgICAgICAgICAgICAgIC AgDQogICAgICAgICAgICAgICAgICAgICAgICAgICAg ICAgICAgICAgICAgICAgICAgICAgICAgICAgICAgICAgICAgICAgICAgICAgICAgICAgICAgICAgICAg ICAgICAgICAgICAgDQogICAgICAgICAgICAgICAgICAgICAgICAgICAgICAgICAgICAgICAgICAgICAg ICAgICAgICAgICAgICAgICAgICAgICAgICAgICAgIC AgICAgICAgICAgICAgICAgICAgICAgDQogICAgICAgICAgICAgICAgICAgICAgICAgICAgICAgICAgIC AgICAgICAgICAgICAgICAgICAgICAgICAgICAgICAgICAgICAgICAgICAgICAgICAgICAgICAgICAgIC WyGQRpXMw1F4bmQYTnHXLiJR6mQKp4Ch2+DQoNCmVu QYY0rfTzxH3SED9jw7CoLXcmVQRhu8GlLCv5FK5XWYNoXHedSA4LRXfznt1FCHKnCIMgoFQWr7toHhGb MME9YQPsPhkfFU4JSXTuN1buuvEyNHXcFHNBYZatIWSURG3DMtXsV4EpqN87RLHHYi5+DQplbmRvYmoN GnSkWKUin9IzIRa0ZX8VDWVlJNjsAU9LGAPzgF2uFH tkCG4FXvWvKLCgORCMRuLgL49uuBNxWNa7P4McAuBnDVYhQfilZANlUXymFbKoYWToIuCdVPapDA3+ID 4+WIctRV8RPYmdmtUsGPHnKm3PYHEvQQK2DJNwwVNdTqIeHQFNPYdiOL4SaKKwMMO2vE9aVBqyESYiKX NdP2zAJtKszKhcXI98jWowvuNqrIClSIq+Ke2DBU5y o9IqKWp0kmQbLAuiLHSxWWxjTLAgQTHzIBNrMOA5JBO5NCKJPmKlKUGePPWmQJsbWGMmMBCihy4NPDWh TZSvDEO4YRVzAOTgBDMrRFgpRIWvQENoKcJ8UNLkBYCxTI2QLdReRNXaKEFuTFZfTMRiGWYikq5BLQVq UGIgOvuvEoHyGMIiDKRmEXyeSACpAQB5GKN8ZSJcXB LhEW7IDiOjOKKyUOR6LUJuLEReCUJsbr7PIWHhXNHtCleeKsRjWSVpXJXxMIstODTvDOF1Beh4HBXkJU LdKE9CZxHpVWDuNXk0GaFbQIYqSLDlkv8XWKJvURIwFXZ4LaSaYMTiOTXeZZusMLMtJDW5VRDlETKyXQ WtXL4RGqLhBYKrZXthYJGfYYDkSKPyny0OZEOmBPHz GLZkIoVaFAKnJKMjKFfdKGHzEKSbTkEeXLYzOLDnMP4XAtJgVEWuPOZ5ZrVrWYYpRCFosq3PLTRdNCVt CRu5TaTzKYKxRCPoMHxxBFUoMFV4JUJ2SOTtJLYbUU5AZwOyMGJmUMg3UASlBJZpVJIbex3YMXDuQKGk DDz8SeIyTSMpHATaDWmfGTGpMSRyVqKhWWPlGHYqSX 7MCjLnZAklAONZOie6ODmmA4w6WNKvUa8KM9Xvb2ZtAyPmUQDTDEusRY4omhScSYTzOh3HF6lKLttnLV yiPvUfPgIlHIMdTkKaYjD4PEcqDXL1HFHcDPV7HO3zWZWcJFNsWhMsSYP5NPOyYBPqPfomMRQ5KjNhGo JdJlxaQtMjVA9CWp1KMkF6HUL5hDJmQd0OIpK2XDhUWlKbIJ9MFPq= ID Date Data Source [id number] 06/29/2020 01:56:00 PM EDT MEDENT ([facility]) Name Value Range Interpretation Code Description Data Anu rce(s) Supporting Document(s) Urea nitrogen [Mass/volume] in Serum or Plasma 34 mg/dL 7-18 MEDENT ([facility]) Glucose [Mass/volume] in Serum or Plasma 203 mg/dL 74-99 MED[facility] ([facility]) 100-125 mg/dL PRE-DIABETES/FASTING >126 mg/dL DIABETES/FASTING Creatinine 1.4 mg/dL 0.6-1.3 MED[facility] ([facility]) Sodium [Moles/volume] in Serum or Plasma 135 meq/L 136-145 MED[facility] ([facility]) Potassium [Moles/volume] in Serum or Plasma 4.1 meq/L 3.5-5.1 MED[facility] ([facility]) Chloride [Moles/volume] in Serum or Plasma 100 meq/L 98-107 MED[facility] ([facility]) Carbon dioxide, total [Moles/volume] in Serum or Plasma 28 meq/L 21 -32 MED[facility] ([facility]) Calcium [Mass/volume] in Serum or Plasma 8.9 mg/dL 8.5-10.1 MED[facility] ([facility]) Glomerular filtration rate/1.73 sq M pre dicted among blacks [Volume Rate/Area] in Serum or Plasma by Creatinine-based formula (MDRD) 60 mL/min [facility] <content>CHRONIC KIDNEY DISEASE STAGING PER NKF</content>
<content></content>
<content>STAGE I & II GFR >= 60 NORMAL TO MILDLY DECREASED</content>
<content>STAGE III GFR 30-59 MODERATELY DECREASED</content>
<content>STAGE IV GFR 15-29 SEVERELY DECREASED</content>
<content>STAGE V GFR <15 VERY LITTLE GFR LEFT</content>
<content>ESRD GFR <15 ON BULKER</content>
<content></content> Glomerular filtration rate/1.73 sq M pre dicted among non-blacks [Volume Rate/Area] in Serum or Plasma by Creatinine-based formula (MDRD) 49 mL/min [facility] ID Date Data Source [id number] 06/29/2020 01:56:00 PM EDT MED[facility] ([facility]) Name Value Range Interpretation Code Description Data Anu rce(s) Supporting Document(s) Magnesium 2.1 mg/dL 1.8-2.4 MED[facility] ([facility]) ID Date Data Source [id number] 06/29/2020 01:56:00 PM EDT [facility] Name Value Range Interpretation Code Description Data Anu rce(s) Supporting Document(s) Hemoglobin [Mass/volume] in Blood 11.8 g/dL 12.0-18.0 [facility] Leukocytes [#/volume] in Blood by Automated count 7.4 x10*3/UL 4.1-10 .9 [facility] NOTE: RESULT VERIFIED. Erythrocytes [#/volume] in Blood by Automated count 4.75 x10*6/UL 4.2 0-6.30 [facility] MCH 24.9 pg 26.0-32.0 [facility] ([facility]) MCV 78.4 fL 80.0-97.0 [facility] ([facility]) Hematocrit [Volume Fraction] of Blood by Automated count 37.3 % 3 7.0-51.0 [facility] Erythrocyte distribution width [Ratio] by Automated count 16.3 % 11.6-13.7 [facility] MCHC 31.8 g/dL 31.0-38.0 [facility] ([facility]) Platelets [#/volume] in Blood by Automated count 281 x10*3/UL 140-440 [facility] MPV 8.7 FL 7.8-11.0 [facility] ([facility]) Neut % 73.7 % 37.0-92.0 [facility] ([facility]) Mid % 7.8 % 1.7-9.3 [facility] Lymph % 18.5 % 10.0-58.5 [facility] ([facility]) Neut # 5.5 x10*3/UL 2.0-7.8 [facility] ([facility]) Lymph # 1.3 x10*3/UL 0.6-4.1 [facility] ([facility]) Mid # 0.6 x10*3/UL 0.1-0.6 [facility] ([facility]) ID Date Data Source [id number] 06/29/2020 01:29:00 PM EDT [facility] ([facility]) Name Value Range Interpretation Code Description Data Anu rce(s) Supporting Document(s) INR in Platelet poor plasma by Coagulation assay 1.2 [facility] ([facility]) ID Date Data Source [id number] 06/13/2020 11:47:00 AM EDT [facility] ([facility]) Name Value Range Interpretation Code Description Data Anu rce(s) Supporting Document(s) INR in Platelet poor plasma by Coagulation assay 5.9 [facility] ([facility]) ID Date Data Source [id number] 06/05/2020 12:21:00 PM EDT [facility] ([facility]) Name Value Range Interpretation Code Description Data Anu rce(s) Supporting Document(s) Microalbumin Urine 84.8 mg/L 1.3-20.0 [facility] ([facility]) COLLECTED AT HOME Microalb/Creat Ratio 95.4 ug/mg 0.0-30.0 [facility] ( [facility]) COLLECTED AT HOME Urine Creatinine 88.9 mg/dL 30.0-125.0 [facility] ([facility]) COLLECTED AT HOME ID Date Data Source [id number] 06/05/2020 12:17:00 PM EDT [facility] ([facility]) Name Value Range Interpretation Code Description Data Anu rce(s) Supporting Document(s) INR in Platelet poor plasma by Coagulation assay 4.4 [facility] ([facility]) ID Date Data Source [id number] 05/29/2020 12:14:00 PM EDT [facility] ([facility]) Name Value Range Interpretation Code Description Data Anu rce(s) Supporting Document(s) INR in Platelet poor plasma by Coagulation assay 2.8 [facility] ([facility]) ID Date Data Source [id number] 05/25/2020 03:32:00 PM EDT [facility] ([facility]) Name Value Range Interpretation Code Description Data Anu rce(s) Supporting Document(s) INR in Platelet poor plasma by Coagulation assay 6.5 [facility] ([facility]) ID Date Data Source [id number] 05/25/2020 02:58:00 PM EDT [facility] Name Value Range Interpretation Code Description Data Anu rce(s) Supporting Document(s) Iron (Fe) 37 ug/dL 65-175 [facility] ([facility]) Total Iron Binding Capacity 397 ug/dL 250-450 [facility] ([facility]) Percent Saturation 9.3 % 19.7-50.0 [facility] ([facility]) ID Date Data Source [id number] 05/25/2020 02:58:00 PM EDT [facility] Name Value Range Interpretation Code Description Data Anu rce(s) Supporting Document(s) Cobalamin (Vitamin B12) [Mass/volume] in Serum or Plasma 501 pg/mL 2 47-911 [facility] ([facility]) VITAMIN B12 NORMAL RANGE NORMAL 247 - 911 PG/ML INDETERMINATE 211 - 246 PG/ML DEFICIENT LESS THAN 211 PG/ML Ferritin [Mass/volume] in Serum or Plasma 29 ng/mL 26-388 [facility] <content>note:<nlbl:demographic_changed></content>
<content>note:<nlbl:demog raphic_changed></content>
<content>note:<nlbl:demographic_changed></content>
<content> note:<nlbl:demographic_changed>note:<nlbl:demographic_changed></content>
<co ntent></content> ID Date Data Source [id number] 05/25/2020 02:58:00 PM EDT [facility] ([facility] Name Value Range Interpretation Code Description Data Anu rce(s) Supporting Document(s) Prothrombin Time 44.6 s 11.8-14.0 [facility] ([facility]) Inr 4.61 [facility] ([facility]) THERAPUTIC HUMAN INR VALUES INDICATIONS NORMAL RANGES PROPHYLAXIS/TREATMENT OF: VENOUS THROMBOSIS 2.0-3.0 PULMONARY EMBOLISM 2.0-3.0 PREVENTION OF SYSTEMIC EMBOLISM FROM: TISSUE HEART VALVES 2.0-3.0 ACUTE MYOCARDIAL INFARCTION 2.0-3.0 VALVULAR HEART DISEASE 2.0-3.0 ATRIAL FIBRILLATION 2.0-3.0 MECHANICAL VALVES(HIGH RISK) 2.5-3.5 RECURRENT MYOCARDIAL INFARCTION 2.5-3.5 ID Date Data Source [id number] 05/25/2020 02:58:00 PM EDT [facility] Name Value Range Interpretation Code Description Data Anu rce(s) Supporting Document(s) Carcinoembryonic Ag [Mass/volume] in Serum or Plasma 1.1 ng/mL [facility] ([facility]) THE CEA ASSAY IS PERFORMED ON THE Button BY CHEMILUMINESCENCE AND SHOULD NOT BE COMPARED INTERCHANGEABLY WITH OTHER METHODS. IT SHOULD NOT BE USED ALONE A SCREENING TEST OR DIAGNOSIS FOR THE PRESENCE OR ABSENCE OF MALIGNANT DISEASE. PREDICTIONS OF DISEASE RECURRENCE SHOULD NOT BE BASED SOLELY ON VALUES OBTAINED FROM SERIAL PATIENT SERUM VALUES. ID Date Data Source [id number] 05/25/2020 02:58:00 PM EDT [facility] ([facility] Name Value Range Interpretation Code Description Data Anu rce(s) Supporting Document(s) Carcinoembryonic Ag [Mass/volume] in Serum or Plasma Laboratory valery t result [facility] ID Date Data Source [id number] 05/25/2020 02:57:00 PM EDT [facility] ([facility]) Name Value Range Interpretation Code Description Data Anu rce(s) Supporting Document(s) Erythrocytes [#/volume] in Blood by Automated count 4.22 x10*6/UL 4.2 0-6.30 [facility] Leukocytes [#/volume] in Blood by Automated count 9.2 x10*3/UL 4.1-10 .9 [facility] Hematocrit [Volume Fraction] of Blood by Automated count 33.1 % 3 7.0-51.0 [facility] MCV 78.4 fL 80.0-97.0 [facility] ([facility]) Hemoglobin [Mass/volume] in Blood 10.6 g/dL 12.0-18.0 [facility] NOTE: RESULT VERIFIED. Platelets [#/volume] in Blood by Automated count 266 x10*3/UL 140-440 [facility] MCHC 32.2 g/dL 31.0-38.0 [facility] ([facility]) Erythrocyte distribution width [Ratio] by Automated count 15.5 % 11.6-13.7 [facility] ([facility]) MCH 25.2 pg 26.0-32.0 [facility] ([facility]) Lymph % 17.0 % 10.0-58.5 [facility] ([facility]) MPV 8.3 FL 7.8-11.0 [facility] ([facility]) Mid % 5.3 % 1.7-9.3 [facility] ([facility]) Lymph # 1.5 x10*3/UL 0.6-4.1 [facility] ([facility]) Mid # 0.6 x10*3/UL 0.1-0.6 [facility] ([facility]) Neut % 77.7 % 37.0-92.0 [facility] ([facility]) Neut # 7.1 x10*3/UL 2.0-7.8 [facility] ([facility]) ID Date Data Source [id number] 05/25/2020 02:57:00 PM EDT [facility] Name Value Range Interpretation Code Description Data Anu rce(s) Supporting Document(s) Hemoglobin A1c/Hemoglobin.total in Blood 7.2 g/dL 4.8-5.6 [facility] Lab Result Notes: Pre-Diabetes 5.7 - 6.4 % Diabetes = or > 6.5% Glucose mean value [Mass/volume] in Blood Estimated fr om glycated hemoglobin 160 mg/dL 60-110 [facility] ([facility] ) ID Date Data Source [id number] 05/25/2020 02:57:00 PM EDT [facility] ([facility]) Name Value Range Interpretation Code Description Data Anu rce(s) Supporting Document(s) Glucose [Mass/volume] in Serum or Plasma 133 mg/dL 74-99 [facility] ([facility]) 100-125 mg/dL PRE-DIABETES/FASTING >126 mg/dL DIABETES/FASTING Sodium [Moles/volume] in Serum or Plasma 140 meq/L 136-145 [facility] ([facility]) Urea nitrogen [Mass/volume] in Serum or Plasma 23 mg/dL 7-18 [facility] ([facility]) Creatinine 1.1 mg/dL 0.6-1.3 [facility] ([facility]) Chloride [Moles/volume] in Serum or Plasma 106 meq/L 98-107 [facility] ([facility]) Potassium [Moles/volume] in Serum or Plasma 4.6 meq/L 3.5-5.1 [facility] ([facility]) Carbon dioxide, total [Moles/volume] in Serum or Plasma 24 meq/L 21 -32 [facility] ([facility]) Total Bilirubin 0.8 mg/dL 0.2-1.0 [facility] ([facility]) Calcium [Mass/volume] in Serum or Plasma 8.5 mg/dL 8.5-10.1 [facility] ([facility]) Alkaline phosphatase isoenzyme [Units/volume] in Serum or Pl asma 71 mg/dL 46-116 [facility] ([facility]) Alanine aminotransferase [Enzymatic activity/volume] in Seru m or Plasma 30 U/L 12-78 [facility] ([facility]) Albumin [Mass/volume] in Serum or Plasma 3.3 g/dL 3.4-5.0 [facility] ([facility]) Proteinase 3 Ab [Units/volume] in Serum 7.1 g/dL 6.4-8.2 [facility] ([facility]) Aspartate aminotransferase [Enzymatic activity/volume] in Serum or Plasma 18 U/L 15-37 [facility] ([facility] ) A/G Ratio 0.87 CALC 1.00-1.90 [facility] ([facility]) Glomerular filtration rate/1.73 sq M pre dicted among non-blacks [Volume Rate/Area] in Serum or Plasma by Creatinine-based formula (MDRD) Laboratory test result [facility] ([facility] ) Glomerular filtration rate/1.73 sq M pre dicted among blacks [Volume Rate/Area] in Serum or Plasma by Creatinine-based formula (MDRD) Laboratory test result [facility] <content>CHRONIC KIDNEY DISEASE STAGING PER NKF</content>
<content></content>
<content>STAGE I & II GFR >= 60 NORMAL TO MILDLY DECREASED</content>
<content>STAGE III GFR 30-59 MODERATELY DECREASED</content>
<content>STAGE IV GFR 15-29 SEVERELY DECREASED</content>
<content>STAGE V GFR <15 VERY LITTLE GFR LEFT</content>
<content>ESRD GFR <15 ON BULKER</content>
<content></content> ID Date Data Source [id number] 05/25/2020 02:57:00 PM EDT [facility]) Name Value Range Interpretation Code Description Data Anu rce(s) Supporting Document(s) Cholesterol [Mass/volume] in Serum or Plasma 98 mg/dL 131-200 [facility] ([facility]) Triglyceride [Mass/volume] in Serum or Plasma 48 mg/dL 30-150 [facility] ([facility]) Cholesterol in LDL [Mass/volume] in Serum or Plasma by calcu lation 44 CALC 50-159 [facility] ([facility]) Cholesterol in HDL [Mass/volume] in Serum or Plasma 44 mg/dL 35-60 [facility] ([facility]) ID Date Data Source [id number] 05/25/2020 02:57:00 PM EDT [facility] Name Value Range Interpretation Code Description Data Anu rce(s) Supporting Document(s) Thyrotropin [Units/volume] in Serum or Plasma by Detec tion limit <= 0.05 mIU/L 3.05 uIU/mL 0.36-3.74 [facility] ([facility] ) ID Date Data Source [id number] 05/25/2020 02:57:00 PM EDT [facility] ([facility]) Name Value Range Interpretation Code Description Data Anu rce(s) Supporting Document(s) Magnesium 1.5 mg/dL 1.8-2.4 [facility] ([facility]) NOTE: RESULT VERIFIED. ID Date Data Source [id number] 05/25/2020 02:57:00 PM EDT [facility] ([facility]) Name Value Range Interpretation Code Description Data Anu rce(s) Supporting Document(s) Hemoglobin A1c/Hemoglobin.total in Blood Laboratory test result [facility] ([facility]) Procedure Social History Code Duration Value Status Description Data Source(s ) Smoking 04/30/2021 12:00:00 AM EDT Patient has never smoked co mpleted Patient has never smoked [facility] ([facility] Smoking 02/08/2021 12:00:00 AM EDT Patient has never smoked co mpleted Patient has never smoked [facility] ([facility], ) Vital Signs ID Date Data [...] [in_i] [facility] ([facility] 5'4" [place] body weight 130 [lb_av] 130 [lb_av] [facility] ([facility] Heart rate 84 /min 84 /min [facility] ([facility] Body temperature 97.8 [degF] 97.8 [degF] [facility] ([facility] Body weight 181.38 [lb_av] 181.38 [lb_av] [facility] ([facility] Oxygen saturation in Arterial blood by Pulse oximetry 98 % 98 % [facility] Body mass index (BMI) [Ratio] 31.1 kg/m2 31.1 k g/m2 [facility] Oxygen saturation in Arterial blood by Pulse oximetry 96 % 96 % [facility] ([facility], ) Room Air Systolic blood pressure 122 mm[Hg] 122 mm[Hg] [facility] ([facility]) Diastolic blood pressure 82 mm[Hg] 82 mm[Hg] [facility] ([facility]) Heart rate 79 /min 79 /min [facility] ([facility]) Body height 65 [in_i] 65 [in_i] [facility] ([facility]) 5'5" [place] body weight 136 [lb_av] 136 [lb_av] [facility] T ([facility]) Systolic blood pressure 130 mm[Hg] 130 mm[Hg] [facility] ([facility]) Diastolic blood pressure 88 mm[Hg] 88 mm[Hg] [facility] ([facility]) Oxygen saturation in Arterial blood by Pulse oximetry 96 % 96 % [facility] ([facility]) Heart rate 84 /min 84 /min [facility] ([facility]) Body surface area Derived from formula 1.89 m2 1.89 m2 [facility] ([facility]) Body temperature 97.0 [degF] 97.0 [degF] [facility] ([facility]) Body height 65 [in_i] 65 [in_i] [facility] ([facility]) 5'5" Body weight 179.00 [lb_av] 179.00 [lb_av] [facility] ([facility]) Body mass index (BMI) [Ratio] 29.8 kg/m2 29.8 k g/m2 [facility] ([facility]) [place] body weight 136 [lb_av] 136 [lb_av] [facility] ([facility]) Body weight 81.194 kg 81.194 kg [facility] Body mass index (BMI) [Ratio] 30.4 kg/m2 30.4 k g/m2 [facility] ([facility]) Body height 65 [in_i] 65 [in_i] [facility] ([facility]) 5'5" Body weight 183.00 [lb_av] 183.00 [lb_av] [facility] ([facility]) [place] body weight 136 [lb_av] 136 [lb_av] [facility] ([facility]) Body weight 83.009 kg 83.009 kg [facility] ([facility]) Body surface area Derived from formula 1.90 m2 1.90 m2 [facility] ([facility]) Body height 65 [in_i] 65 [in_i] [facility] ([facility]) 5'5" Body mass index (BMI) [Ratio] 30.4 kg/m2 30.4 k g/m2 [facility] ([facility]) Systolic blood pressure 102 mm[Hg] 102 mm[Hg] [facility] ([facility]) [place] body weight 136 [lb_av] 136 [lb_av] [facility] ([facility]) Body weight 183.00 [lb_av] 183.00 [lb_av] [facility] ([facility]) Body weight 83.009 kg 83.009 kg [facility] ([facility]) Diastolic blood pressure 78 mm[Hg] 78 mm[Hg] [facility] ([facility]) Heart rate 69 /min 69 /min [facility] ([facility]) Oxygen saturation in Arterial blood by Pulse oximetry 96 % 96 % [facility] ([facility]) Body surface area Derived from formula 1.90 m2 1.90 m2 [facility] ([facility]) Body weight 207.00 [lb_av] 207.00 [lb_av] [facility] ([facility]) Systolic blood pressure 100 mm[Hg] 100 mm[Hg] [facility] ([facility]) Heart rate 76 /min 76 /min [facility] ([facility]) Diastolic blood pressure 60 mm[Hg] 60 mm[Hg] [facility] ([facility]) Body weight 207.00 [lb_av] 207.00 [lb_av] [facility] ([facility]) Systolic blood pressure 120 mm[Hg] 120 mm[Hg] [facility] ([facility]) Diastolic blood pressure 60 mm[Hg] 60 mm[Hg] [facility] ([facility]) Heart rate 78 /min 78 /min [facility] ([facility]) Body weight 206.00 [lb_av] 206.00 [lb_av] [facility] ([facility]) Diastolic blood pressure 66 mm[Hg] 66 mm[Hg] [facility] ([facility]) Systolic blood pressure 122 mm[Hg] 122 mm[Hg] [facility] ([facility]) Body weight 204.00 [lb_av] 204.00 [lb_av] [facility] Oxygen saturation in Arterial blood by Pulse oximetry 99 % 99 % [facility] ([facility]) Heart rate 76 /min 76 /min [facility] ([facility]) Body weight 192.00 [lb_av] 192.00 [lb_av] [facility] Body height 54 [in_i] 54 [in_i] [facility] ([facility]) 4'6" Oxygen saturation in Arterial blood by Pulse oximetry 98 % 98 % [facility] ([facility]) Body mass index (BMI) [Ratio] 46.5 kg/m2 46.5 k g/m2 [facility] ([facility]) Body weight 193.00 [lb_av] 193.00 [lb_av] [facility] ([facility]) Heart rate 122 /min 122 /min [facility] ([facility]) Diastolic blood pressure 74 mm[Hg] 74 mm[Hg] [facility] ([facility]) Systolic blood pressure 122 mm[Hg] 122 mm[Hg] [facility] ([facility])
== END 2021-07-21 12:11 | disposition home or self-care (01) ==
LOC: M ED 10:37
DX: Z76.0 Encounter for issue of repeat prescription (principal); I48.91 Unspecified atrial fibrillation; I50.9 Heart failure, unspecified; I25.2 Old myocardial infarction; E11.9 Type 2 diabetes mellitus without complications; I10 Essential (primary) hypertension; E78.5 Hyperlipidemia, unspecified; J44.9 Chronic obstructive pulmonary disease, unspecified; Z86.73 Personal history of transient ischemic attack (TIA), and cerebral infarction without residual deficits; G47.33 Obstructive sleep apnea (adult) (pediatric); I25.10 Atherosclerotic heart disease of native coronary artery without angina pectoris; N40.0 Benign prostatic hyperplasia without lower urinary tract symptoms; M54.9 Dorsalgia, unspecified; Z79.82 Long term (current) use of aspirin; Z79.01 Long term (current) use of anticoagulants; Z79.84 Long term (current) use of oral hypoglycemic drugs; Z79.899 Other long term (current) drug therapy; Z91.041 Radiographic dye allergy status

== ENCOUNTER → 2021-11-06 | Outpatient (CLI) | payer MEDICARE | LOC: M LAB 14:00 | PROVIDERS: ATTEND Psychiatry & Neurology Neurology | DX: E53.8 Deficiency of other specified B group vitamins (principal) ==

== ENCOUNTER → 2021-11-06 | Outpatient (CLI) | payer MEDICARE ==
[2021-11-06 14:45] LABS: ALBUMIN 3.6 GM/DL (3.2-5.2); ALT/SGPT 18 U/L (12-78); BILIRUBIN,TOTAL 0.6 MG/DL (0.2-1.0); BLOOD UREA NITROGEN 23 MG/DL (7-18); CALCIUM LEVEL 9.1 MG/DL (8.8-10.2); CARBON DIOXIDE LEVEL 31 MEQ/L (21-32); CHLORIDE LEVEL 105 MEQ/L (98-107); CREATININE FOR GFR 1.22 MG/DL (0.70-1.30); GLOMERULAR FILTRATION RATE > 60.0 (>42); GLUCOSE, FASTING 124 MG/DL (70-100); POTASSIUM SERUM 4.4 MEQ/L (3.5-5.1); SODIUM LEVEL 141 MEQ/L (136-145); TOTAL PROTEIN 7.1 GM/DL (6.4-8.2)
[2021-11-06 15:01] LABS: HEMOGLOBIN A1c 6.3 %
== END ==
LOC: M LAB 13:25
PROVIDERS: ATTEND Nurse Practitioner Family
DX: I10 Essential (primary) hypertension (principal); E11.9 Type 2 diabetes mellitus without complications; E53.8 Deficiency of other specified B group vitamins

== ENCOUNTER → 2022-07-01 | Outpatient (CLI) | payer MEDICARE ==
[2022-07-01 15:24] LABS: BASO # 0.1 10^3/uL (0.0-0.2); BASO % 0.9 % (0.0-1.0); EOS # 0.1 10^3/uL (0.0-0.5); EOS % 1.7 % (0.0-3.0); HEMATOCRIT 40.7 % (42.0-52.0); HEMOGLOBIN 13.1 g/dl (13.5-17.5); LYMPH # 1.6 10^3/uL (1.5-5.0); LYMPH % 19.9 % (24.0-44.0); MEAN CORPUSCULAR HGB CONC 32.2 g/dl (32.0-36.5); MEAN CORPUSCULAR VOLUME 93.1 fl (80.0-96.0); MONO # 0.7 10^3/uL (0.0-0.8); MONO % 8.8 % (2.0-8.0); NEUTROPHILS # 5.6 10^3/uL (1.5-8.5); NEUTROPHILS % 68.5 % (36.0-66.0); PLATELET COUNT, AUTOMATED 179 10^3/uL (150-450); RED BLOOD COUNT 4.37 10^6/uL (4.30-6.10); WHITE BLOOD COUNT 8.2 10^3/uL (4.0-10.0)
[2022-07-01 15:52] LABS: HEMOGLOBIN A1c 5.9 %
[2022-07-01 16:03] LABS: ALBUMIN 3.5 GM/DL (3.2-5.2); ALT/SGPT 14 U/L (12-78); BILIRUBIN,TOTAL 0.7 MG/DL (0.2-1.0); BLOOD UREA NITROGEN 20 MG/DL (7-18); CALCIUM LEVEL 9.1 MG/DL (8.8-10.2); CARBON DIOXIDE LEVEL 28 MEQ/L (21-32); CHLORIDE LEVEL 107 MEQ/L (98-107); CREATININE FOR GFR 0.99 MG/DL (0.70-1.30); GLOMERULAR FILTRATION RATE > 60.0 (>42); GLUCOSE, FASTING 121 MG/DL (70-100); POTASSIUM SERUM 4.1 MEQ/L (3.5-5.1); SODIUM LEVEL 141 MEQ/L (136-145); TOTAL PROTEIN 6.7 GM/DL (6.4-8.2)
== END ==
LOC: M LAB 14:05
PROVIDERS: ATTEND Nurse Practitioner Family
DX: E11.9 Type 2 diabetes mellitus without complications (principal); I10 Essential (primary) hypertension

== ENCOUNTER → 2022-09-27 | Outpatient (CLI) | payer MEDICARE ==
[2022-09-27 08:44] LABS: BASO # 0.1 10^3/uL (0.0-0.2); EOS # 0.1 10^3/uL (0.0-0.5); EOS % 1.3 % (0.0-3.0); HEMATOCRIT 44.5 % (42.0-52.0); HEMOGLOBIN 14.1 g/dl (13.5-17.5); LYMPH # 1.9 10^3/uL (1.5-5.0); LYMPH % 27.2 % (24.0-44.0); MEAN CORPUSCULAR HEMOGLOBIN 29.1 pg (27.0-33.0); MEAN CORPUSCULAR HGB CONC 31.7 g/dl (32.0-36.5); MEAN CORPUSCULAR VOLUME 91.8 fl (80.0-96.0); MONO # 0.6 10^3/uL (0.0-0.8); MONO % 8.1 % (2.0-8.0); NEUTROPHILS # 4.2 10^3/uL (1.5-8.5); NEUTROPHILS % 61.5 % (36.0-66.0); PLATELET COUNT, AUTOMATED 170 10^3/uL (150-450); RED BLOOD COUNT 4.85 10^6/uL (4.30-6.10); WHITE BLOOD COUNT 6.8 10^3/uL (4.0-10.0)
[2022-09-27 09:15] LABS: MAGNESIUM LEVEL 1.5 MG/DL (1.8-2.4)
[2022-09-27 09:17] LABS: ALBUMIN 3.8 G/DL (3.2-5.2); ALKALINE PHOSPHATASE 68 U/L (46-116); ALT/SGPT 13 U/L (7.0-40); AST/SGOT 14 U/L (<34); BILIRUBIN,TOTAL 1.2 MG/DL (0.3-1.2); BLOOD UREA NITROGEN 22 MG/DL (9-23); CALCIUM LEVEL 9.1 MG/DL (8.3-10.6); CARBON DIOXIDE LEVEL 25 MMOL/L (20-31); CHLORIDE LEVEL 101 MMOL/L (98-107); CHOLESTEROL LEVEL 119 MG/DL (<200); CHOLESTEROL RISK RATIO 2.31 (<5); CREATININE FOR GFR 0.99 MG/DL (0.70-1.30); GLOMERULAR FILTRATION RATE > 60.0 (>42); GLUCOSE, FASTING 95 MG/DL (74-106); HDL CHOLESTEROL 51.3 MG/DL (>40); LDL CHOLESTEROL 46.1 MG/DL (<100); NON-HDL-C 68 MG/DL; POTASSIUM SERUM 4.1 MMOL/L (3.5-5.1); SODIUM LEVEL 139 MMOL/L (136-145); TOTAL PROTEIN 6.7 G/DL (5.7-8.2); TRIGLYCERIDES LEVEL 108 MG/DL (<150)
[2022-09-27 09:18] LABS: TOTAL 25(OH) VITAMIN D 38.8 NG/ML (20.0-100.0)
[2022-09-27 09:34] LABS: HEMOGLOBIN A1c 5.7 % (4.0-6.0)
== END ==
LOC: M LAB 07:34
PROVIDERS: ATTEND Registered Nurse
DX: E11.9 Type 2 diabetes mellitus without complications (principal); I10 Essential (primary) hypertension

== ENCOUNTER → 2022-12-15 | Outpatient (CLI) | payer MEDICARE ==
[2022-12-15 08:51] LABS: BASO # 0.1 10^3/uL (0.0-0.2); BASO % 0.9 % (0.0-1.0); EOS # 0.1 10^3/uL (0.0-0.5); EOS % 1.8 % (0.0-3.0); HEMATOCRIT 45.7 % (42.0-52.0); HEMOGLOBIN 14.2 g/dl (13.5-17.5); LYMPH # 2.1 10^3/uL (1.5-5.0); LYMPH % 26.2 % (24.0-44.0); MEAN CORPUSCULAR HEMOGLOBIN 29.3 pg (27.0-33.0); MEAN CORPUSCULAR HGB CONC 31.1 g/dl (32.0-36.5); MEAN CORPUSCULAR VOLUME 94.2 fl (80.0-96.0); MONO # 0.6 10^3/uL (0.0-0.8); MONO % 7.2 % (2.0-8.0); NEUTROPHILS # 5.1 10^3/uL (1.5-8.5); NEUTROPHILS % 63.6 % (36.0-66.0); PLATELET COUNT, AUTOMATED 187 10^3/uL (150-450); RED BLOOD COUNT 4.85 10^6/uL (4.30-6.10); WHITE BLOOD COUNT 7.9 10^3/uL (4.0-10.0)
[2022-12-15 09:20] LABS: HEMOGLOBIN A1c 5.9 % (4.0-6.0)
[2022-12-15 09:22] LABS: ALBUMIN 3.8 G/DL (3.2-5.2); ALKALINE PHOSPHATASE 70 U/L (46-116); ALT/SGPT 15 U/L (7.0-40); AST/SGOT 14 U/L (<34); BILIRUBIN,TOTAL 1.6 MG/DL (0.3-1.2); BLOOD UREA NITROGEN 36 MG/DL (9-23); CALCIUM LEVEL 9.3 MG/DL (8.3-10.6); CARBON DIOXIDE LEVEL 28 MMOL/L (20-31); CHLORIDE LEVEL 102 MMOL/L (98-107); CHOLESTEROL LEVEL 110 MG/DL (<200); CHOLESTEROL RISK RATIO 2.21 (<5); CREATININE FOR GFR 1.17 MG/DL (0.70-1.30); GLOMERULAR FILTRATION RATE > 60.0 (>42); GLUCOSE, FASTING 134 MG/DL (74-106); HDL CHOLESTEROL 49.6 MG/DL (>40); LDL CHOLESTEROL 41.4 MG/DL (<100); MAGNESIUM LEVEL 1.6 MG/DL (1.8-2.4); NON-HDL-C 60.4 MG/DL; POTASSIUM SERUM 4.4 MMOL/L (3.5-5.1); SODIUM LEVEL 137 MMOL/L (136-145); TOTAL 25(OH) VITAMIN D 36.2 NG/ML (20.0-100.0); TOTAL PROTEIN 6.6 G/DL (5.7-8.2); TRIGLYCERIDES LEVEL 95 MG/DL (<150)
== END ==
LOC: M LAB 08:19
PROVIDERS: ATTEND Registered Nurse
DX: E11.9 Type 2 diabetes mellitus without complications (principal); I10 Essential (primary) hypertension